=== PATIENT | male | born 1955 | race Caucasian/White ===

== ENCOUNTER 2017-09-09 18:51 | Inpatient (IN) | payer MEDICARE ==
[2017-09-09] MEDS ORDERED: Acetaminophen 325 MG TAB PO PRN (20:35)
[2017-09-09] MEDS ORDERED: Ondansetron ODT 4 MG TAB PO PRN (20:35)
[2017-09-09] MEDS ORDERED: Bisacodyl 5 MG TAB PO PRN (20:35)
[2017-09-09] MEDS ORDERED: Sodium Chloride 0.9% 1,000 ML IV SCH (20:45)
[2017-09-09 21:09] LABS: Troponin I Less than 0.010 ng/mL (< 0.028)
[2017-09-09 22:39] VITALS: BMI 27.9
[2017-09-09 22:41] LABS: Lactic Acid 2.2 mmol/L (0.5-2.2)
[2017-09-09] MEDS ORDERED: HYDROcodone/Acetaminophen 5/325 mg Tablet PO SCH (23:15)
[2017-09-10] MEDS: Sodium Chloride 0.9% 1,000 ML IV SCH ×4 (00:32→17:36)
[2017-09-10] MEDS: Famotidine 20 MG TAB PO SCH ×3 (00:32→20:22)
[2017-09-10] MEDS: cefTRIAXone\\ROCEPHIN 1 GM in Sodium Chloride 0.9% 100 ML IVPB SCH ×2 (00:33→22:20)
[2017-09-10] MEDS: Azithromycin 500 MG in Sodium Chloride 0.9% 250 ML 250 ML IVPB SCH ×2 (01:16→23:33)
[2017-09-10 04:08] LABS: Anion Gap 10 mmol/L (10-20); BUN (Urea Nitrogen) 11 mg/dL (8.4-25.7); Calc. Creatinine Clearance 115 mL/min (70-130); Carbon Dioxide 27 mmol/L (22-29); Chloride 107 mmol/L (98-107); Estimated GFR-MDRD 88; Glucose 152 mg/dL (70-105); Potassium 3.6 mmol/L (3.5-5.1); Sodium 140 mmol/L (136-145)
[2017-09-10 04:11] LABS: Troponin I Less than 0.010 ng/mL (< 0.028)
[2017-09-10 04:31] LABS: Band 41 % (5-11); Hemoglobin 11.8 g/dL (14.0-18.0); Lymphocytes 19 % (21-51); MDiff Complete? YES; Mean Corpuscular HGB CONC 34.7 g/dL (32.0-36.0); Mean Corpuscular Hemoglobin 33.6 pg (27.0-31.0); Mean Platelet Volume 8.1 fL (7.4-10.4); Neutrophil 40 % (42-75); PLT Morphology Comment Appears Decreased; Platelet Count 83 thou/uL (130-400); RBC Distribution Width 11.9 % (11.5-14.5); Red Blood Cell (RBC) Count 3.52 mill/uL (4.70-6.10); Reflex for Review?? NO; White Blood Cell (WBC) Count 7.6 thou/uL (4.8-10.8)
[2017-09-10] MEDS: HYDROcodone/Acetaminophen 5/325 mg Tablet PO PRN ×4 (05:01→22:19)
[2017-09-10] MEDS ORDERED: Enoxaparin Sodium 40 MG/0.4 ML SYRINGE SC SCH (09:00)
[2017-09-10] MEDS ORDERED: hydrOXYzine 25 MG TAB PO PRN (09:43)
[2017-09-10] MEDS ORDERED: Carvedilol 3.125 MG TAB PO SCH (10:00)
[2017-09-10 10:49] LABS: INR-International Normal Ratio 1.3
[2017-09-10 10:50] LABS: PTT 36.2 SEC (22.9-36.1)
--- NOTE | 2017-09-10 11:03 | ULT ---
BILATERAL LOWER EXTREMITY VENOUS DOPPLER: Date: 09/10/17 PROVIDED CLINICAL HISTORY: Elevated D-Dimer. FINDINGS: Rangel scale and color Doppler sonography with spectral analysis was performed of the bilateral common femoral, femoral, popliteal, posterior tibial, greater saphenous, and profunda femoral veins, demons trating a normal sonographic appearance to each. IMPRESSION: No sonographic evidence for lower extremity deep venous thrombosis. POS: [facility]
[2017-09-10 11:53] LABS: Legionella Urinary Ag Negative (Negative)
--- NOTE | 2017-09-10 12:12 | CON ---
DATE OF CONSULTATION: 09/10/2017 This consultation encompasses 70 minutes time. Of that time, greater than 50% was spent with the pat ient and/or on the patient's unit in the hospital. CONSULTING PHYSICIAN: Dr. Smith from the [facility]. HISTORY OF PRESENT ILLNESS: The patient is a 61-year-old male who presented to the hospital yesterda y with a 3-day history of fever, shortness of breath, and cough. He underwent a chest x-ray followed by a CT scan, which showed diffuse bilateral nodular infiltrates, which almost have a cystic charact eristic. The patient tells me that he has a history of 2 previous pneumonias, the last being in 2012 when he was hospitalized in [place]. Apparently, he was mechanically ventilated at that time and was so bad that his family terminally extubated him, but he ended up surviving. The patient denies any recent exposure other than cleaning up the garage with his son. He has no exposure to animals. He h as no previous history of rheumatologic disease. He does smoke about a pack per day and smoked heavi ly in the past. He also smokes marijuana. PAST MEDICAL HISTORY: 1. Previous pneumonia. 2. Coronary artery disease. 3. Hypertension. 4. Hyperlipidemia. 5. Chronic back pain. PAST SURGICAL HISTORY: Left knee replacement, multiple back surgeries and a coronary stent. FAMILY MEDICAL HISTORY: Remarkable for melanoma and mother had COPD. SOCIAL HISTORY: A 3-4 pack a day smoker for 48 years, currently down to about 1 pack per day, drinks alcohol every few weeks after a 12 pack at that time, uses marijuana 3-4 times a week. He is divorc ed, lives with his [id number] and 6 kids. 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 ALLERGIES: SULFA. MEDICATIONS PRIOR TO ADMISSION: Restoril, Zoloft, Lyrica, omeprazole, lisinopril, hydrocodone/acetam inophen, aspirin is also question whether he was on clindamycin at home. REVIEW OF SYSTEMS: He has had intermittent fever, chills, no nausea, no vomiting or chest pain, no h ematemesis, no melena, no hematochezia, no hematuria, no dysuria. PHYSICAL EXAMINATION: VITAL SIGNS: Temperature 97.9, pulse 70, respirations 14, O2 saturation 97% on 3 liters, blood press ure 112/55. GENERAL: He is awake and alert and in no distress. HEENT: Pupils react. Sclerae icteric. Oropharynx clear. NECK: Shows no adenopathy, JVD, or bruits. LUNGS: He has some inspiratory crackles best heard posteriorly, but nothing I can hear anteriorly. CARDIOVASCULAR: S1, S2 regular. There is no audible murmur. ABDOMEN: Soft, nontender, nondistended. No hepatosplenomegaly. EXTREMITIES: No clubbing, cyanosis, or edema. LABORATORY DATA: Sodium 140, potassium 3.6, chloride 107, CO2 27, BUN 11, creatinine 0.8, glucose 15 2. Lactate initially was 3, repeat 2.2. White blood cell count 7.6, hematocrit 34.1, platelet count 83, he has got 40% neutrophils, 41% bands. I reviewed his CT personally. He has small nodular infiltrates scattered throughout both lung herrera , ground glass appearance, some cystic appearance to the areas. ASSESSMENT: 1. Bilateral atypical pneumonia. The nodular nature in the infiltrate would make one think of funga l pneumonia, viral pneumonia, or perhaps an atypical pneumonia such as chlamydia or mycoplasma. Endo carditis would also have to be in the differential diagnosis. Noninfectious causes would include a W egener's granulomatosis or rheumatoid disease. RECOMMENDATIONS: 1. I will add vancomycin to current antibiotic regimen. Check ANCA levels, rheumatoid factor, and H IV. 2. Follow up on echocardiogram result. 3. If the patient does not get better with current therapy, then consider bronchoscopy versus video- assisted thorascopic biopsy.
[2017-09-10 13:11] LABS: HIV (1/2) Antibody/Antigen Non-Reactive (NonReactive); HIV 1/2 INDEX 0.11 S/CO (<1.00)
--- NOTE | 2017-09-10 14:57 | PDOC.PN ---
- Subjective Encounter Start Date: 09/10/17 Encounter Start Time: 09:30 Feels ok. Still has the cough. Was able to get a sputum sample. - Objective Vital Signs & Weight: Vital Signs (12 hours) Temp Pulse Resp BP Pulse Ox 09/10/17 12:02 98.2 F 69 16 121/56 L 92 L 09/10/17 08:15 97.9 F 70 14 97 09/10/17 08:02 97.9 F 70 14 112/55 L 97 09/10/17 04:03 98.1 F 73 15 101/57 L 98 Weight Weight 198 lb 9.6 oz I&O: 09/09/17 09/10/17 09/11/17 06:59 06:59 06:59 Intake Total 1829 Output Total 1000 Balance 829 Result Diagrams: 09/10/17 02:49 09/10/17 02:49 Phys Exam - Physical Examination Constitutional: NAD HEENT: oral pharynx no lesions Neck: no JVD, supple Respiratory: no wheezing Scattered rales bilaterally. Cardiovascular: RRR, no significant murmur, no rub Gastrointestinal: soft, non-tender, no distention, positive bowel sounds Musculoskeletal: no edema Neurological: non-focal Psychiatric: normal affect, A&O x 3 Skin: normal turgor Dx/Plan (1) Pneumonia Code(s): J18.9 - PNEUMONIA, UNSPECIFIED ORGANISM Status: Acute Comment: Very atypical, bilateral pattern. Consult Pulmonology, ID. Sputum Cx pending. Blood Cx pending. Continue with Abraham Olivas. Pulmonology adding Vanc for possible staph. (2) LARSON (nonalcoholic steatohepatitis) Code(s): K75.81 - NONALCOHOLIC STEATOHEPATITIS (LARSON) Status: Acute Comment : Has mild elevation of LFT's. Patient denies significant EtOH use other that a six pack every couple of weeks. (3) Thrombocytopenia Code(s): D69.6 - THROMBOCYTOPENIA, UNSPECIFIED Status: Acute Comment: Unclear etiology. Has Clindamycin on home med list. Could cause this. Held now. (4) CAD (coronary artery disease) Code(s): I25.10 - ATHSCL HEART DISEASE OF [place] CORONARY ARTERY W/O ANG PCTRS Status: Chronic Comment: Stable. Continue home meds. (5) Hypertension Code(s): I10 - ESSENTIAL (PRIMARY) HYPERTENSION Status: Chronic Comment: Stable. Continue home meds. Coreg (6) Hyperlipidemia Code(s): E78.5 - HYPERLIPIDEMIA, UNSPECIFIED Status: Chronic Comment: Continue home atorvastatin. (7) Chronic back pain Code(s): M54.9 - DORSALGIA, UNSPECIFIED; G89.29 - OTHER CHRONIC PAIN Status: Chronic Comment: Continue home meds. - Plan * .
[2017-09-10] MEDS: Acetaminophen/Codeine 30-300mg Tablet PO PRN (18:06)
[2017-09-10] MEDS: Atorvastatin Calcium 20 MG TAB PO SCH (20:22)
[2017-09-10] MEDS: Carvedilol 3.125 MG TAB PO SCH (20:23)
[2017-09-10] MEDS: traZODone HCl 150 MG TAB PO SCH (20:23)
[2017-09-10] MEDS: Bupropion 150 MG SR TAB PO SCH (20:23)
[2017-09-10] MEDS: Pregabalin 75 MG CAP PO SCH (20:23)
[2017-09-10] MEDS: Vancomycin HCl 1 GM in Premix Bag 1 BAG IVPB SCH (20:24)
[2017-09-10] MEDS: tiZANidine HCl 4 MG TAB PO PRN (22:19)
[2017-09-11] MEDS: HYDROcodone/Acetaminophen 5/325 mg Tablet PO PRN ×2 (04:45→08:38)
[2017-09-11] MEDS: Sodium Chloride 0.9% 1,000 ML IV SCH (04:46)
[2017-09-11] MEDS: Benzonatate 100 MG CAP PO PRN ×2 (05:06→21:33)
[2017-09-11 05:09] LABS: Anion Gap 12 mmol/L (10-20); BUN (Urea Nitrogen) 7 mg/dL (8.4-25.7); Calc. Creatinine Clearance 135 mL/min (70-130); Calcium 8.2 mg/dL (7.8-10.44); Carbon Dioxide 23 mmol/L (22-29); Chloride 109 mmol/L (98-107); Estimated GFR-MDRD Greater than 90; Glucose 76 mg/dL (70-105); Sodium 140 mmol/L (136-145)
[2017-09-11 05:12] LABS: #Basophils 0.1 thou/uL (0.0-0.2); #Eosinphils 0.1 thou/uL (0.0-0.7); #Lymphocytes 1.8 thou/uL (1.20-3.40); #Monocytes 0.5 thou/uL (0.11-0.59); #Neutrophils 9.1 thou/uL (1.40-6.50); %Basophils 0.5 % (0.0-1.0); %Eosinophils 0.6 % (0.0-10.0); %Lymphocytes 15.7 % (21.0-51.0); %Monocytes 3.9 % (0.0-10.0); %Neutrophils 79.3 % (42.0-75.0); Hemoglobin 13.5 g/dL (14.0-18.0); Mean Corpuscular HGB CONC 33.9 g/dL (32.0-36.0); Mean Corpuscular Hemoglobin 33.1 pg (27.0-31.0); Mean Corpuscular Volume 97.5 fL (78.0-98.0); Platelet Count 98 thou/uL (130-400); RBC Distribution Width 11.9 % (11.5-14.5); Red Blood Cell (RBC) Count 4.07 mill/uL (4.70-6.10); White Blood Cell (WBC) Count 11.5 thou/uL (4.8-10.8)
[2017-09-11] MEDS: Famotidine 20 MG TAB PO SCH ×2 (08:34→20:36)
[2017-09-11] MEDS: Bupropion 150 MG SR TAB PO SCH ×2 (08:34→20:35)
[2017-09-11] MEDS: Carvedilol 3.125 MG TAB PO SCH ×2 (08:34→20:36)
[2017-09-11] MEDS: traZODone HCl 150 MG TAB PO SCH ×2 (08:35→20:35)
[2017-09-11] MEDS: Pregabalin 75 MG CAP PO SCH ×2 (08:35→20:35)
[2017-09-11] MEDS: Vancomycin HCl 1 GM in Premix Bag 1 BAG IVPB SCH (08:36)
--- NOTE | 2017-09-11 11:07 | PDOC.PN ---
- Subjective Encounter Start Date: 09/11/17 Encounter Start Time: 11:06 Feels better. Feels like he can breath better. - Objective Vital Signs & Weight: Vital Signs (12 hours) Temp Pulse Resp BP Pulse Ox 09/11/17 08:35 98.4 F 74 18 93 L 09/11/17 08:00 98.4 F 74 18 131/74 93 L 09/11/17 05:59 77 20 94 L 09/11/17 05:27 79 18 98 09/11/17 04:38 24 H 94 L 09/11/17 03:55 98.1 F 90 24 H 135/79 88 L 09/10/17 23:55 20 93 L 09/10/17 23:34 98.5 F Weight Weight 198 lb 9.6 oz I&O: 09/10/17 09/11/17 09/12/17 06:59 06:59 06:59 Intake Total 1829 3727 Output Total 1000 2275 Balance 829 1452 Result Diagrams: 09/11/17 04:35 09/11/17 04:35 Phys Exam - Physical Examination Constitutional: NAD Scattered rales and wheezes. More rales at right base - clear with coug Cardiovascular: RRR, no significant murmur Gastrointestinal: soft, non-tender, no distention, positive bowel sounds Musculoskeletal: no edema Skin: normal turgor Dx/Plan (1) Pneumonia Code(s): J18.9 - PNEUMONIA, UNSPECIFIED ORGANISM Status: Acute Comment: Very atypical, bilateral pattern. Consult Pulmonology, ID. Sputum Cx without specific pathogen found. Blood Cx negative. Continue with Abraham Olivas Vanc. (2) LARSON (nonalcoholic steatohepatitis) Code(s): K75.81 - NONALCOHOLIC STEATOHEPATITIS (LARSON) Status: Acute Comment : Has mild elevation of LFT's. Patient denies significant EtOH use other that a six pack every couple of weeks. (3) Thrombocytopenia Code(s): D69.6 - THROMBOCYTOPENIA, UNSPECIFIED Status: Acute Comment: Unclear etiology. Has Clindamycin on home med list. Could cause this. Held now. Slightly better. (4) CAD (coronary artery disease) Code(s): I25.10 - ATHSCL HEART DISEASE OF [place] CORONARY ARTERY W/O ANG PCTRS Status: Chronic Comment: Stable. Continue home meds. (5) Hypertension Code(s): I10 - ESSENTIAL (PRIMARY) HYPERTENSION Status: Chronic Comment: Stable. Continue home meds. Coreg (6) Hyperlipidemia Code(s): E78.5 - HYPERLIPIDEMIA, UNSPECIFIED Status: Chronic Comment: Continue home atorvastatin. (7) Chronic back pain Code(s): M54.9 - DORSALGIA, UNSPECIFIED; G89.29 - OTHER CHRONIC PAIN Status: Chronic Comment: Continue home meds. - Plan * Above.
--- NOTE | 2017-09-11 11:16 | PRG ---
DATE OF SERVICE: 09/11/2017 SUBJECTIVE: The patient feels better today. Does complaining of headache that he says he has had si nce he got nitroglycerin in the emergency room the overnight. PHYSICAL EXAMINATION: VITAL SIGNS: Temperature 98.4 with no fever, pulse 74, respirations 18, O2 sat 93% on 3 liters, and blood pressure 131/74. HEENT: Unremarkable. NECK: No JVD. LUNGS: He has inspiratory crackles bilaterally with some wheezes heard anteriorly. CARDIOVASCULAR: S1 and S2, regular. ABDOMEN: Soft. EXTREMITIES: No edema. LABORATORY DATA: White blood cell count 11.5, hematocrit 39.7, platelet count 98. Sodium 140, potas sium 4, chloride 109, CO2 of 23, BUN 7, creatinine 0.7, glucose 76. His HIV test was negative. Urin josé miguel antigen for legionella was negative. ASSESSMENT: 1. Atypical appearing pneumonia. 2. Likely underlying chronic obstructive pulmonary disease with exacerbation. PLAN: 1. We are waiting the results of an echocardiogram that was obtained yesterday. Specifically, I wan t to rule out endocarditis. 2. Awaiting results of the ANCA and rheumatoid arthritis panel. 3. Continuing the present IV antibiotics. 4. I would like to add scheduled breathing treatments and low dose steroids for the wheezing.
[2017-09-11] MEDS ORDERED: HYDROcodone/Acetaminophen 10/325 mg Tablet PO PRN (14:48)
[2017-09-11] MEDS: HYDROcodone/Acetaminophen 10/325 mg Tablet PO PRN ×2 (15:16→21:33)
[2017-09-11 17:25] LABS: Strep pneumo Urine Ag NEGATIVE (NEGATIVE)
--- NOTE | 2017-09-11 17:35 | CON ---
DATE OF CONSULTATION: 09/11/2017 REASON FOR CONSULTATION: Pneumonia. HISTORY OF PRESENT ILLNESS: A 61-year-old patient who has a history of chronic smoking and a prior episode of pneumonia treated at [facility] in 2012 who developed progressively worsening cough, dyspnea associated with some chest pain , which was respiratory related. Initial findings included a BP 117/63, pulse 86 , respirations 23, O2 sat 93% room air. He was oriented x3. Heent was normal, neck was supple with described clear lung sounds and abdomen examination was nontender. Heart exam not remarkable. Initial findings in the ancillary results including a white cell count 7.6, hemoglobin 11.8, MCV 97, platelets 83,000 with 41% bands. INR 1.3. Initial chemistry with a potassium 3.6, creatinine 0.88, lactic acid 2.0. LDH 255. Troponin normal. HIV serology nonreactive. Urinary legionella Haemophilus antigen negative thus far. We have sputum culture with moderate WBCs, few gram positive cocci in clusters and positive rods. Currently, Mr. Mcginnis is feeling better, lying supine in bed, oriented, does appear in distress. No headaches. No sore throat, odynophagia or dysphagia. Some toothache, which has been chronic. Does not have money to go to the dentist reportedly. No back pain. The cough is less, clear sputum production. No abdominal pain, diarrhea, or genitourinary symptoms. No joint symptoms. No neurological symptoms. MEDICAL HISTORY: Chronic smoking, prior pneumonia, diverticulitis, chronic back pain, hypertension. SURGICAL HISTORY: Appendectomy, carpal tunnel surgery, colon resection and colostomy with takedown, shoulder surgery, bilateral knee replacements. SOCIAL HISTORY: Lives in [place] with relatives, still smoking, drinks weekly. ALLERGIES: SULFA DRUGS with rash. MEDICATIONS: Coreg, hydroxyzine, Lyrica, Prilosec, pravastatin, tizanidine. MEDICINES HERE IN THE HOSPITAL: Tylenol, [place], DuoNeb, Lipitor, azithromycin, Dulcolax, ceftriaxone, ondansetron, pregabalin, vancomycin. PHYSICAL EXAMINATION: VITAL SIGNS: T-max 100.4, blood pressure 120/70, pulse 65, respirations 18, O2 sat 95%. SKIN: No areas of skin breakdown, no lymphadenopathy. Peripheral IV access. No Arce catheter. HEENT: Ocular movements conjugate. Oral cavity with quite a few missing teeth. Remainder ones with quite a bit of decay and gum disease. NECK: Supple. No jugular venous distention. LUNGS: With expiratory wheezing left side and a few crackles in the right base. CARDIOVASCULAR: S1, S2, regular rate. No S3 or S4. ABDOMEN: Soft, not distended or tender. No ascites. No bladder distention. : No genital abnormalities. EXTREMITIES: No joint inflammatory activity. Pulses 1+ in dorsalis pedis. NEUROLOGIC: Plantar responses are flexure, moves extremities equally. Cognitive function appears to be intact. Imaging studies include a chest CT angio from the with diffuse ground- glass nodular infiltrates, panlobular, worse at the bases. ASSESSMENT: 1. Chronic smoking. 2. New onset of cough of acute, subacute onset with multilobar pneumonitis. DISCUSSION: Differential diagnosis include the usual community-acquired pathogens including strep pneumo, legionnaires, Legionella pneumophila other atypical intracellular pathogens. Mycobacterium tuberculosis or atypical mycobacterial pathogens less likely. Fungal pathogens less likely in view of the initial clinical response to treatment. Hypersensitivity pneumonitis with cryptogenic organizing pneumonia not ruled out, but to be considered if there is recrudescence in the near future. Malignancy including bronchoalveolar carcinoma less likely. Pneumocystis is unlikely. Continue current regimen. Submit strep pneumo antigen in urine and respiratory virus PCR panel. Further improvement is noticed and transition to oral antimicrobial therapy for discharge planning. If there is recrudescence, then patient will need a bronchoscopy for sampling. MTDD
[2017-09-11] MEDS: Atorvastatin Calcium 20 MG TAB PO SCH (20:35)
[2017-09-11] MEDS: cefTRIAXone\\ROCEPHIN 1 GM in Sodium Chloride 0.9% 100 ML IVPB SCH (21:33)
[2017-09-11] MEDS: Azithromycin 500 MG in Sodium Chloride 0.9% 250 ML 250 ML IVPB SCH (22:17)
[2017-09-12] MEDS: HYDROcodone/Acetaminophen 10/325 mg Tablet PO PRN ×4 (03:20→21:10)
[2017-09-12] MEDS: Pregabalin 75 MG CAP PO SCH ×2 (08:33→22:29)
[2017-09-12] MEDS: traZODone HCl 150 MG TAB PO SCH ×2 (08:34→23:30)
[2017-09-12] MEDS: Famotidine 20 MG TAB PO SCH ×2 (08:34→22:28)
[2017-09-12] MEDS: Carvedilol 3.125 MG TAB PO SCH (08:34)
[2017-09-12] MEDS: Bupropion 150 MG SR TAB PO SCH ×2 (08:34→23:30)
--- NOTE | 2017-09-12 08:39 | RAD ---
FRONTAL RADIOGRAPH CHEST: Date: 09/12/17 COMPARISON: 09/09/17. HISTORY: Pneumonia. FINDINGS: There are scattered subtle areas of interstitial and alveolar opacity within both lungs, most promine nt in the right upper lobe, the mid left lung zone, and the medial aspect of the left lung base. When compared to the 09/09/17 examination, the opacities within the right upper lobe have worsened. There is no pneumothorax or large volume pleural effusion. IMPRESSION: Multifocal air space disease suggests multifocal infectious pneumonitis, for which follow-up imaging following treatment to document resolution is advised. POS: [facility]
--- NOTE | 2017-09-12 10:58 | PRG ---
DATE OF SERVICE: 09/12/2017 The patient states that he feels better. No acute complaints. PHYSICAL EXAMINATION: VITAL SIGNS: Temperature 96.6, pulse 62, respirations 18, O2 sat 94%, blood pressure 150/73. HEENT: Unremarkable. NECK: No JVD. CHEST: A few scattered crackles. CARDIAC: S1 and S2 regular. ABDOMEN: Soft. EXTREMITIES: No edema. Chest x-ray demonstrates no acute changes from his previous x-ray. His micro cultures are negative t o this point. ASSESSMENT: 1. Multifocal bilateral pneumonia 2. Acute systolic dysfunction with ejection fraction 45-50% without evidence of vegetation on the va lves. RECOMMENDATIONS: The patient is doing better with current antibiotic therapy. I would continue the current treatment course and await the results of the ANCA testing. If he should get worse then he w ill need bronchoscopy, but the best yield would be to have him off antibiotics a couple of days befor e doing a bronchoscopy. My partners will be covering as I will be out of town for several days.
[2017-09-12 12:10] LABS: CCP IgG Antibody 1.4 EliAU/mL (<7 Negative); EliA RAS New Method **** NEW METHOD ****; Rheumatoid Factor IgM Antibody Less than 0.5 IU/mL
--- NOTE | 2017-09-12 13:21 | PDOC.PN ---
- Subjective Encounter Start Date: 09/12/17 Encounter Start Time: 10:45 Subjective: feels better, no sob -: is amb in room - Objective MAR Reviewed: Yes Vital Signs & Weight: Vital Signs (12 hours) Temp Pulse Resp BP Pulse Ox 09/12/17 12:00 96.3 F L 62 20 155/78 H 96 09/12/17 11:05 62 16 95 09/12/17 08:00 96.6 F L 63 18 158/73 H 94 L 09/12/17 07:05 93 L 09/12/17 07:03 60 16 93 L 09/12/17 03:18 97.8 F 67 20 134/78 95 Weight Weight 198 lb 1.6 oz I&O: 09/11/17 09/12/17 09/13/17 06:59 06:59 06:59 Intake Total 3727 2558 350 Output Total 2275 3350 Balance 1452 -792 350 Result Diagrams: 09/11/17 04:35 09/11/17 04:35 Phys Exam - Physical Examination HEENT: PERRLA, moist MMs Neck: no JVD, supple Respiratory: no wheezing, no rales rhonchi+ Cardiovascular: RRR, no significant murmur Gastrointestinal: soft, non-tender, positive bowel sounds Musculoskeletal: no edema, pulses present Neurological: non-focal, moves all 4 limbs Psychiatric: normal affect, A&O x 3 Dx/Plan (1) COPD exacerbation Code(s): J44.1 - CHRONIC OBSTRUCTIVE PULMONARY DISEASE W (ACUTE) EXACERBATION Status: Acute (2) Pneumonia Code(s): J18.9 - PNEUMONIA, UNSPECIFIED ORGANISM Status: Acute Qualifiers: Laterality: bilateral (3) LARSON (nonalcoholic steatohepatitis) Code(s): K75.81 - NONALCOHOLIC STEATOHEPATITIS (LARSON) Status: Acute (4) CAD (coronary artery disease) Code(s): I25.10 - ATHSCL HEART DISEASE OF [place] CORONARY ARTERY W/O ANG PCTRS Status: Chronic Qualifiers: Coronary Disease-Associated Artery/Lesion type: [place] artery [place] vs. transplanted heart: [place] heart Comment: Stable. Continue home meds. (5) Chronic back pain Code(s): M54.9 - DORSALGIA, UNSPECIFIED; G89.29 - OTHER CHRONIC PAIN Status: Chronic Comment: Continue home meds. (6) Hyperlipidemia Code(s): E78.5 - HYPERLIPIDEMIA, UNSPECIFIED Status: Chronic Qualifiers: Hyperlipidemia type: unspecified Qualified Code(s): E78.5 - Hyperlipidemia , unspecified Comment: Continue home atorvastatin. (7) Hypertension Code(s): I10 - ESSENTIAL (PRIMARY) HYPERTENSION Status: Chronic Qualifiers: Hypertension type: essential hypertension Qualified Code(s): I10 - Essential (primary) hypertension - Plan is on zithromax and ceftriaxone -: iv steroids, viral pcr was +ve for rhinovirus -: dc coreg, was bradycardic overnight per staff -: add norvasc -: nebs, tx to med floor * . pt is on multiple pschotropic/pain meds: trazadone 150mg bid, tizanidine, lyrica 300 bid, norco, welbutrin 150 bid. PCP needs to titrate/dc some of his meds in view of current hosp and undelying copd. Review of Systems - Medications/Allergies Allergies/Adverse Reactions: Allergies Allergy/AdvReac Type Severity Reaction Status Date / Time Sulfa (Sulfonamide Allergy Verified 11/21/13 19:18 Antibiotics) Medications: Current Medications Acetaminophen (Tylenol) 650 mg PO Q4H PRN PRN Reason: Headache/Fever or Pain Acetaminophen/Codeine Phosphate (Tylenol #3) 1 tab PO Q4H PRN PRN Reason: Mild Pain (1-3) Last Admin: 09/10/17 18:06 Dose: 1 tab Hydrocodone Bitart/Acetaminophen ([place] 10/325) 1 tab PO Q4H PRN PRN Reason: Moderate Pain (4-6) Hydrocodone Bitart/Acetaminophen ([place] 10/325) 2 tab PO Q4H PRN PRN Reason: Moderate to Severe Pain (6-10) Last Admin: 09/12/17 08:34 Dose: 2 tab Albuterol/Ipratropium (Duoneb) 3 ml NEB [id number] RJ Last Admin: 09/12/17 11:05 Dose: 3 ml Atorvastatin Calcium (Lipitor) 20 mg PO HS RJ Last Admin: 09/11/17 20:35 Dose: 20 mg Benzonatate (Tessalon) 100 mg PO TIDPRN PRN PRN Reason: Cough Last Admin: 09/11/17 21:33 Dose: 100 mg Bisacodyl (Dulcolax) 10 mg PO DAILYPRN PRN PRN Reason: Constipation Bupropion HCl (Wellbutrin Sr) 150 mg PO BID [facility] Last Admin: 09/12/17 08:34 Dose: 150 mg Carvedilol (Coreg) 3.125 mg PO BID [facility] Last Admin: 09/12/17 08:34 Dose: 3.125 mg Famotidine (Pepcid) 20 mg PO BID [facility] Last Admin: 09/12/17 08:34 Dose: 20 mg Azithromycin 500 mg/ Sodium (Chloride) 250 mls @ 250 mls/hr IVPB Q24HR [facility] Last Admin: 09/11/17 22:17 Dose: 250 mls Ceftriaxone Sodium 1 gm/ (Sodium Chloride) 100 mls @ 200 mls/hr IVPB Q24HR [facility] Last Admin: 09/11/17 21:33 Dose: 100 mls Methylprednisolone Sodium Succinate (Solu-Medrol) 20 mg IVP Q6HR [facility] Last Admin: 09/12/17 12:28 Dose: 20 mg Ondansetron HCl (Zofran Odt) 4 mg PO Q6H PRN PRN Reason: Nausea/Vomiting Pantoprazole Sodium (Protonix) 40 mg PO DAILY [facility] Last Admin: 09/12/17 08:34 Dose: 40 mg Pregabalin (Lyrica) 300 mg PO BID [facility] Last Admin: 09/12/17 08:33 Dose: 300 mg Sodium Chloride (Flush - Normal Saline) 10 ml IVF Q12HR [facility] Last Admin: 09/12/17 08:36 Dose: 10 ml Sodium Chloride (Flush - Normal Saline) 10 ml IVF PRN PRN PRN Reason: Saline Flush Last Admin: 09/12/17 06:22 Dose: 10 ml Tizanidine HCl (Zanaflex) 4 mg PO Q8H PRN PRN Reason: Nausea/Vomiting Last Admin: 09/10/17 22:19 Dose: 4 mg Trazodone HCl (Desyrel) 150 mg PO BID [facility] Last Admin: 09/12/17 08:34 Dose: 150 mg
[2017-09-12] MEDS: Atorvastatin Calcium 20 MG TAB PO SCH (22:29)
[2017-09-12] MEDS: cefTRIAXone\\ROCEPHIN 1 GM in Sodium Chloride 0.9% 100 ML IVPB SCH (22:31)
[2017-09-12] MEDS: Azithromycin 500 MG in Sodium Chloride 0.9% 250 ML 250 ML IVPB SCH (23:05)
[2017-09-12] MEDS: Benzonatate 100 MG CAP PO PRN (23:31)
[2017-09-13] MEDS ORDERED: Sterile Water 10 ML ONE (07:40)
[2017-09-13] MEDS: Famotidine 20 MG TAB PO SCH ×2 (09:39→20:14)
[2017-09-13] MEDS: traZODone HCl 150 MG TAB PO SCH ×2 (09:40→20:15)
[2017-09-13] MEDS: Bupropion 150 MG SR TAB PO SCH ×2 (09:40→20:14)
[2017-09-13] MEDS: Pregabalin 75 MG CAP PO SCH ×2 (09:40→20:14)
[2017-09-13] MEDS: HYDROcodone/Acetaminophen 10/325 mg Tablet PO PRN ×3 (09:48→20:19)
--- NOTE | 2017-09-13 10:13 | PRG ---
DATE OF SERVICE: 09/13/2017 This morning he is much better, less short of breath, less coughing, still has a left-sided infiltrat e, but better. PHYSICAL EXAMINATION: VITAL SIGNS: Still wheezing. Sats are 90% on room air, respiration 16, temperature 98, blood pressu re 130/74. CHEST: Chest revealed diffuse wheezing without rhonchi and crackles. CARDIAC: Normal S1, S2. No gallops. ABDOMEN: Soft mass. IMPRESSION: 1. Multi airspace disease. 2. Bronchospasm. 3. Tobacco abuse. PLAN: Continue antibiotics, neb treatments, steroids. Ambulation. We will follow.
--- NOTE | 2017-09-13 12:08 | PDOC.PN ---
- Subjective Encounter Start Date: 09/13/17 Encounter Start Time: 09:00 Subjective: has cough with expectoration -: is amb in room - Objective MAR Reviewed: Yes Vital Signs & Weight: Vital Signs (12 hours) Temp Pulse Resp BP Pulse Ox 09/13/17 11:55 97.9 F 74 18 152/77 H 91 L 09/13/17 11:06 81 20 98 09/13/17 08:00 98.1 F 72 16 138/74 96 09/13/17 06:40 94 L 09/13/17 06:37 90 20 94 L 09/13/17 03:44 97.5 F L 86 16 143/81 H 95 Weight Weight 198 lb 1.6 oz I&O: 09/12/17 09/13/17 09/14/17 06:59 06:59 06:59 Intake Total 2558 1750 Output Total 3350 Balance -792 1750 Result Diagrams: 09/11/17 04:35 09/11/17 04:35 Phys Exam - Physical Examination HEENT: PERRLA, moist MMs Neck: no JVD, supple Respiratory: no wheezing, no rales rhonchi+ Cardiovascular: RRR, no significant murmur Gastrointestinal: soft, non-tender, positive bowel sounds Musculoskeletal: no edema, pulses present Neurological: non-focal, moves all 4 limbs Psychiatric: A&O x 3 Dx/Plan (1) COPD exacerbation Code(s): J44.1 - CHRONIC OBSTRUCTIVE PULMONARY DISEASE W (ACUTE) EXACERBATION Status: Acute (2) Pneumonia Code(s): J18.9 - PNEUMONIA, UNSPECIFIED ORGANISM Status: Acute Qualifiers: Laterality: bilateral (3) LARSON (nonalcoholic steatohepatitis) Code(s): K75.81 - NONALCOHOLIC STEATOHEPATITIS (LARSON) Status: Acute (4) CAD (coronary artery disease) Code(s): I25.10 - ATHSCL HEART DISEASE OF [place] CORONARY ARTERY W/O ANG PCTRS Status: Chronic Qualifiers: Coronary Disease-Associated Artery/Lesion type: [place] artery [place] vs. transplanted heart: [place] heart Comment: Stable. Continue home meds. (5) Chronic back pain Code(s): M54.9 - DORSALGIA, UNSPECIFIED; G89.29 - OTHER CHRONIC PAIN Status: Chronic Comment: Continue home meds. (6) Hyperlipidemia Code(s): E78.5 - HYPERLIPIDEMIA, UNSPECIFIED Status: Chronic Qualifiers: Hyperlipidemia type: unspecified Qualified Code(s): E78.5 - Hyperlipidemia , unspecified Comment: Continue home atorvastatin. (7) Hypertension Code(s): I10 - ESSENTIAL (PRIMARY) HYPERTENSION Status: Chronic Qualifiers: Hypertension type: essential hypertension Qualified Code(s): I10 - Essential (primary) hypertension - Plan change oxygen to humidified -: is on doxy and ceftriaxone -: solumedrol, nebs -: to ambulate in hallway as tolerated -: decrease dose of trazadone and lyrica until his lung symptoms get better * . Review of Systems - Medications/Allergies Allergies/Adverse Reactions: Allergies Allergy/AdvReac Type Severity Reaction Status Date / Time Sulfa (Sulfonamide Allergy Verified 11/21/13 19:18 Antibiotics) Medications: Current Medications Acetaminophen (Tylenol) 650 mg PO Q4H PRN PRN Reason: Headache/Fever or Pain Acetaminophen/Codeine Phosphate (Tylenol #3) 1 tab PO Q4H PRN PRN Reason: Mild Pain (1-3) Last Admin: 09/10/17 18:06 Dose: 1 tab Hydrocodone Bitart/Acetaminophen ([place] 10/325) 1 tab PO Q4H PRN PRN Reason: Moderate Pain (4-6) Hydrocodone Bitart/Acetaminophen ([place] 10/325) 2 tab PO Q4H PRN PRN Reason: Moderate to Severe Pain (6-10) Last Admin: 09/13/17 09:48 Dose: 2 tab Albuterol/Ipratropium (Duoneb) 3 ml NEB [id number] [facility] Last Admin: 09/13/17 11:06 Dose: 3 ml Atorvastatin Calcium (Lipitor) 20 mg PO HS [facility] Last Admin: 09/12/17 22:29 Dose: 20 mg Benzonatate (Tessalon) 100 mg PO TIDPRN PRN PRN Reason: Cough Last Admin: 09/12/17 23:31 Dose: 100 mg Bisacodyl (Dulcolax) 10 mg PO DAILYPRN PRN PRN Reason: Constipation Bupropion HCl (Wellbutrin Sr) 150 mg PO BID [facility] Last Admin: 09/13/17 09:40 Dose: 150 mg Doxycycline Hyclate (Vibramycin) 100 mg PO BID [facility] Stop: 09/20/17 21:01 Famotidine (Pepcid) 20 mg PO BID [facility] Last Admin: 09/13/17 09:39 Dose: 20 mg Ceftriaxone Sodium 1 gm/ (Sodium Chloride) 100 mls @ 200 mls/hr IVPB Q24HR [facility] Last Admin: 09/12/17 22:31 Dose: 100 mls Methylprednisolone Sodium Succinate (Solu-Medrol) 20 mg IVP Q6HR [facility] Last Admin: 09/13/17 07:45 Dose: 20 mg Mometasone Furoate/Formoterol Fumar (Dulera 200 Mcg/5 Mcg Inhaler) 2 puff INH BID-RT [facility] Ondansetron HCl (Zofran Odt) 4 mg PO Q6H PRN PRN Reason: Nausea/Vomiting Pantoprazole Sodium (Protonix) 40 mg PO DAILY [facility] Last Admin: 09/13/17 09:39 Dose: 40 mg Pregabalin (Lyrica) 75 mg PO BID [facility] Sodium Chloride (Flush - Normal Saline) 10 ml IVF Q12HR [facility] Last Admin: 09/13/17 09:47 Dose: 10 ml Sodium Chloride (Flush - Normal Saline) 10 ml IVF PRN PRN PRN Reason: Saline Flush Last Admin: 09/12/17 23:50 Dose: 10 ml Tizanidine HCl (Zanaflex) 4 mg PO Q8H PRN PRN Reason: Nausea/Vomiting Last Admin: 09/10/17 22:19 Dose: 4 mg Trazodone HCl (Desyrel) 150 mg PO HS [facility]
--- NOTE | 2017-09-13 12:25 | PRG ---
DATE OF SERVICE: 09/12/2017 SUBJECTIVE: Feeling better, less cough, less dyspnea, no chest pain, no abdominal pain, no diarrhea. OBJECTIVE: VITAL SIGNS: Temperature has been normal for the past many days. BP 150/70, pulse 74. GENERAL: Awake, alert and oriented. CARDIOVASCULAR: S1, S2. Regular rate. LUNGS: With improvement in breath sounds with less wheezing, less crackles. ABDOMEN: Soft, not distended. NEUROLOGIC: Nonfocal. LABORATORY DATA: White cell count 11.5, hemoglobin 13, platelets 98,000 and INR 1.3. Sodium 140, cr eatinine 0.74. Strep pneumo and Legionella pneumophila antigen negative. HIV negative. Rheumatoid factor and other rheumatoid arthritis auto antibody tests within normal limits. Respiratory virus PC R positive for rhinovirus. ASSESSMENT AND DISCUSSION: Chronic smoking. New onset of cough of subacute onset with multilobar ar eas of lung infiltrate with wheezing. The differential diagnosis with the usual community acquired p athogens in mind as well as possibility of viral infection including rhinovirus detected. Rhinovirus has been previously associated with clinical presentation that includes pulmonary infiltrates. [place], the possibility of hypersensitivity reaction with pneumonitis is considered as well. The patien t seems to be improving. He has been started on corticosteroids so that we will confound the interpr etation of the clinical response to antimicrobial therapy. If the patient has recrudescence of the p resentation in the future, then we will have to probably have to undergo bronchoscopy for bronchoalve olar lavage and biopsy.
[2017-09-13] MEDS: Mometasone/Formoterol 120 PUFF INHALER INH SCH (19:21)
[2017-09-13] MEDS: Doxycycline 100 MG CAP PO SCH (20:14)
[2017-09-13] MEDS: Atorvastatin Calcium 20 MG TAB PO SCH (20:14)
[2017-09-13] MEDS: tiZANidine HCl 4 MG TAB PO PRN (20:20)
[2017-09-13] MEDS: cefTRIAXone\\ROCEPHIN 1 GM in Sodium Chloride 0.9% 100 ML IVPB SCH (22:21)
[2017-09-14] MEDS: Acetaminophen/Codeine 30-300mg Tablet PO PRN (00:11)
[2017-09-14] MEDS: Benzonatate 100 MG CAP PO PRN ×2 (00:12→08:57)
[2017-09-14] MEDS: HYDROcodone/Acetaminophen 10/325 mg Tablet PO PRN ×5 (06:11→22:53)
[2017-09-14] MEDS: Mometasone/Formoterol 120 PUFF INHALER INH SCH ×2 (06:34→19:23)
[2017-09-14] MEDS: Pregabalin 75 MG CAP PO SCH ×2 (08:57→20:47)
[2017-09-14] MEDS: Doxycycline 100 MG CAP PO SCH ×2 (08:57→20:47)
[2017-09-14] MEDS: Famotidine 20 MG TAB PO SCH ×2 (08:57→20:47)
[2017-09-14] MEDS: Bupropion 150 MG SR TAB PO SCH ×2 (08:57→20:47)
--- NOTE | 2017-09-14 10:01 | PRG ---
DATE OF SERVICE: 09/14/2017 He said he is better, he is still coughing, though sputum is clear. PHYSICAL EXAMINATION: VITAL SIGNS: Temperature is 97, pulse 56, respirations 16, sats are 90% on room air. Blood pressure 181/88. CHEST: No wheezing or crackles. CARDIAC: Normal S1-S2. No gallops. IMPRESSION: Bilateral bronchopneumonia atypical. PLAN: Prednisone and doxycycline are on board. He remains afebrile. He could be discharged home to follow up with Dr. Dumont in about 2 weeks.
[2017-09-14] MEDS: tiZANidine HCl 4 MG TAB PO PRN (10:18)
--- NOTE | 2017-09-14 11:06 | PDOC.PN ---
- Subjective Encounter Start Date: 09/14/17 Encounter Start Time: 10:00 Subjective: breathing better, get exertional sob on min distance - Objective MAR Reviewed: Yes Vital Signs & Weight: Vital Signs (12 hours) Temp Pulse Resp BP Pulse Ox 09/14/17 10:20 58 L 20 98 09/14/17 08:21 97.7 F 56 L 16 181/88 H 95 09/14/17 08:00 97.7 F 70 20 95 09/14/17 06:34 70 20 Weight Weight 198 lb 1.6 oz I&O: 09/13/17 09/14/17 09/15/17 06:59 06:59 06:59 Intake Total 1750 420 Balance 1750 420 Result Diagrams: 09/11/17 04:35 09/11/17 04:35 Phys Exam - Physical Examination HEENT: PERRLA, moist MMs Neck: no JVD, supple Respiratory: no wheezing, no rales rhonchi+ Cardiovascular: RRR, no significant murmur Gastrointestinal: soft, non-tender, positive bowel sounds Musculoskeletal: no edema, pulses present Neurological: non-focal, moves all 4 limbs Psychiatric: A&O x 3 Dx/Plan (1) COPD exacerbation Code(s): J44.1 - CHRONIC OBSTRUCTIVE PULMONARY DISEASE W (ACUTE) EXACERBATION Status: Acute (2) Pneumonia Code(s): J18.9 - PNEUMONIA, UNSPECIFIED ORGANISM Status: Acute Qualifiers: Laterality: bilateral (3) LARSON (nonalcoholic steatohepatitis) Code(s): K75.81 - NONALCOHOLIC STEATOHEPATITIS (LARSON) Status: Acute (4) CAD (coronary artery disease) Code(s): I25.10 - ATHSCL HEART DISEASE OF [place] CORONARY ARTERY W/O ANG PCTRS Status: Chronic Qualifiers: Coronary Disease-Associated Artery/Lesion type: [place] artery [place] vs. transplanted heart: [place] heart Comment: Stable. Continue home meds. (5) Chronic back pain Code(s): M54.9 - DORSALGIA, UNSPECIFIED; G89.29 - OTHER CHRONIC PAIN Status: Chronic Comment: Continue home meds. (6) Hyperlipidemia Code(s): E78.5 - HYPERLIPIDEMIA, UNSPECIFIED Status: Chronic Qualifiers: Hyperlipidemia type: unspecified Qualified Code(s): E78.5 - Hyperlipidemia , unspecified Comment: Continue home atorvastatin. (7) Hypertension Code(s): I10 - ESSENTIAL (PRIMARY) HYPERTENSION Status: Chronic Qualifiers: Hypertension type: essential hypertension Qualified Code(s): I10 - Essential (primary) hypertension (8) Anxiety disorder Code(s): F41.9 - ANXIETY DISORDER, UNSPECIFIED Status: Chronic Qualifiers: Anxiety disorder type: generalized anxiety disorder Qualified Code(s): F41.1 - Generalized anxiety disorder - Plan on doxy and oral prednisone -: nebs, to amb as tolerated -: may dc home if he is comfortable going -: counselled reg medications that suppress resp drive/drowsiness etc * . Review of Systems - Medications/Allergies Allergies/Adverse Reactions: Allergies Allergy/AdvReac Type Severity Reaction Status Date / Time Sulfa (Sulfonamide Allergy Verified 11/21/13 19:18 Antibiotics) Medications: Current Medications Acetaminophen (Tylenol) 650 mg PO Q4H PRN PRN Reason: Headache/Fever or Pain Acetaminophen/Codeine Phosphate (Tylenol #3) 1 tab PO Q4H PRN PRN Reason: Mild Pain (1-3) Last Admin: 09/14/17 00:11 Dose: 1 tab Hydrocodone Bitart/Acetaminophen ([place] 10/325) 1 tab PO Q4H PRN PRN Reason: Moderate Pain (4-6) Hydrocodone Bitart/Acetaminophen ([place] 10/325) 2 tab PO Q4H PRN PRN Reason: Moderate to Severe Pain (6-10) Last Admin: 09/14/17 10:16 Dose: 2 tab Albuterol/Ipratropium (Duoneb) 3 ml NEB [id number] Last Admin: 09/14/17 06:34 Dose: 3 ml Amlodipine Besylate (Norvasc) 5 mg PO DAILY [facility] Atorvastatin Calcium (Lipitor) 20 mg PO HS [facility] Last Admin: 09/13/17 20:14 Dose: 20 mg Benzonatate (Tessalon) 100 mg PO TIDPRN PRN PRN Reason: Cough Last Admin: 09/14/17 08:57 Dose: 100 mg Bisacodyl (Dulcolax) 10 mg PO DAILYPRN PRN PRN Reason: Constipation Bupropion HCl (Wellbutrin Sr) 150 mg PO BID [facility] Last Admin: 09/14/17 08:57 Dose: 150 mg Doxycycline Hyclate (Vibramycin) 100 mg PO BID [facility] Stop: 09/20/17 21:01 Last Admin: 09/14/17 08:57 Dose: 100 mg Famotidine (Pepcid) 20 mg PO BID [facility] Last Admin: 09/14/17 08:57 Dose: 20 mg Mometasone Furoate/Formoterol Fumar (Dulera 200 Mcg/5 Mcg Inhaler) 2 puff INH BID-RT [facility] Last Admin: 09/14/17 06:34 Dose: 2 puff Ondansetron HCl (Zofran Odt) 4 mg PO Q6H PRN PRN Reason: Nausea/Vomiting Pantoprazole Sodium (Protonix) 40 mg PO DAILY [facility] Last Admin: 09/14/17 08:57 Dose: 40 mg Prednisone (Prednisone) 20 mg PO BID [facility] Pregabalin (Lyrica) 75 mg PO BID [facility] Last Admin: 09/14/17 08:57 Dose: 75 mg Sodium Chloride (Flush - Normal Saline) 10 ml IVF Q12HR [facility] Last Admin: 09/14/17 08:58 Dose: 10 ml Sodium Chloride (Flush - Normal Saline) 10 ml IVF PRN PRN PRN Reason: Saline Flush Last Admin: 09/14/17 00:12 Dose: 10 ml Tizanidine HCl (Zanaflex) 4 mg PO Q8H PRN PRN Reason: Nausea/Vomiting Last Admin: 09/14/17 10:18 Dose: 4 mg Trazodone HCl (Desyrel) 150 mg PO HS [facility] Last Admin: 09/13/17 20:15 Dose: 150 mg
[2017-09-14] MEDS: traZODone HCl 150 MG TAB PO SCH (20:47)
[2017-09-14] MEDS: Atorvastatin Calcium 20 MG TAB PO SCH (20:47)
[2017-09-14] MEDS: predniSONE 20 MG TAB PO SCH (20:48)
[2017-09-15] MEDS: HYDROcodone/Acetaminophen 10/325 mg Tablet PO PRN ×3 (03:57→12:16)
[2017-09-15] MEDS: Mometasone/Formoterol 120 PUFF INHALER INH SCH (06:30)
[2017-09-15 08:09] VITALS: BP 160/83; TEMP 97.8
[2017-09-15] MEDS: Bupropion 150 MG SR TAB PO SCH (08:12)
[2017-09-15] MEDS: Doxycycline 100 MG CAP PO SCH (08:12)
[2017-09-15] MEDS: Pregabalin 75 MG CAP PO SCH (08:13)
[2017-09-15] MEDS: predniSONE 20 MG TAB PO SCH (08:13)
[2017-09-15] MEDS: Famotidine 20 MG TAB PO SCH (08:13)
[2017-09-15] MEDS ORDERED: Amlodipine 5 MG TAB PO SCH (09:00)
--- NOTE | 2017-09-15 09:11 | RAD ---
CHEST 2 VIEWS: HISTORY: Pneumonia. COMPARISON: Chest radiograph 2014. FINDINGS: Lungs are clear. No pneumothorax or effusion. Cardiac silhouette and mediastinal contours are withi n normal limits. Mild S-shaped scoliosis thoracolumbar spine. There is some scarring in the lung ba ses and lung apices. No acute osseous abnormality. IMPRESSION: No acute intrathoracic abnormality. POS: [facility]
--- NOTE | 2017-09-15 11:02 | PDOC.PN ---
- Subjective Encounter Start Date: 09/15/17 Encounter Start Time: 10:00 Subjective: breathing better, is ambulating in hallway - Objective MAR Reviewed: Yes Vital Signs & Weight: Vital Signs (12 hours) Temp Pulse Resp BP BP Pulse Ox 09/15/17 08:12 67 160/83 H 09/15/17 08:08 97.8 F 67 20 160/83 H 93 L 09/15/17 08:00 97.8 F 67 20 93 L 09/15/17 06:30 70 14 Weight Weight 198 lb 1.6 oz I&O: 09/14/17 09/15/17 09/16/17 06:59 06:59 06:59 Intake Total 420 1920 Balance 420 1920 Result Diagrams: 09/11/17 04:35 09/11/17 04:35 Phys Exam - Physical Examination HEENT: PERRLA, moist MMs Neck: no JVD, supple Respiratory: no wheezing, no rales occ rhonchi Cardiovascular: RRR, no significant murmur Gastrointestinal: soft, non-tender, positive bowel sounds Musculoskeletal: no edema, pulses present Neurological: non-focal, moves all 4 limbs Psychiatric: normal affect, A&O x 3 Dx/Plan (1) COPD exacerbation Code(s): J44.1 - CHRONIC OBSTRUCTIVE PULMONARY DISEASE W (ACUTE) EXACERBATION Status: Acute (2) Pneumonia Code(s): J18.9 - PNEUMONIA, UNSPECIFIED ORGANISM Status: Acute Qualifiers: Laterality: bilateral (3) LARSON (nonalcoholic steatohepatitis) Code(s): K75.81 - NONALCOHOLIC STEATOHEPATITIS ([place]ARSON) Status: Acute (4) CAD (coronary artery disease) Code(s): I25.10 - ATHSCL HEART DISEASE OF [place] CORONARY ARTERY W/O ANG PCTRS Status: Chronic Qualifiers: Coronary Disease-Associated Artery/Lesion type: [place] artery [place] vs. transplanted heart: [place] heart Comment: Stable. Continue home meds. (5) Chronic back pain Code(s): M54.9 - DORSALGIA, UNSPECIFIED; G89.29 - OTHER CHRONIC PAIN Status: Chronic Comment: Continue home meds. (6) Hyperlipidemia Code(s): E78.5 - HYPERLIPIDEMIA, UNSPECIFIED Status: Chronic Qualifiers: Hyperlipidemia type: unspecified Qualified Code(s): E78.5 - Hyperlipidemia , unspecified Comment: Continue home atorvastatin. (7) Hypertension Code(s): I10 - ESSENTIAL (PRIMARY) HYPERTENSION Status: Chronic Qualifiers: Hypertension type: essential hypertension Qualified Code(s): I10 - Essential (primary) hypertension (8) Anxiety disorder Code(s): F41.9 - ANXIETY DISORDER, UNSPECIFIED Status: Chronic Qualifiers: Anxiety disorder type: generalized anxiety disorder Qualified Code(s): F41.1 - Generalized anxiety disorder - Plan hemostable -: dc pt home on steroid taper and doxy -: to f/u with Pulm in 3 weeks with f/u cxr * . Review of Systems - Medications/Allergies Allergies/Adverse Reactions: Allergies Allergy/AdvReac Type Severity Reaction Status Date / Time Sulfa (Sulfonamide Allergy Verified 11/21/13 19:18 Antibiotics) Medications: Current Medications Acetaminophen (Tylenol) 650 mg PO Q4H PRN PRN Reason: Headache/Fever or Pain Acetaminophen/Codeine Phosphate (Tylenol #3) 1 tab PO Q4H PRN PRN Reason: Mild Pain (1-3) Last Admin: 09/14/17 00:11 Dose: 1 tab Hydrocodone Bitart/Acetaminophen ([place] 10/325) 1 tab PO Q4H PRN PRN Reason: Moderate Pain (4-6) Hydrocodone Bitart/Acetaminophen ([place] 10/325) 2 tab PO Q4H PRN PRN Reason: Moderate to Severe Pain (6-10) Last Admin: 09/15/17 08:15 Dose: 2 tab Albuterol/Ipratropium (Duoneb) 3 ml NEB [id number] [facility] Last Admin: 09/15/17 10:54 Dose: 3 ml Amlodipine Besylate (Norvasc) 5 mg PO DAILY [facility] Last Admin: 09/15/17 08:12 Dose: 5 mg Atorvastatin Calcium (Lipitor) 20 mg PO HS [facility] Last Admin: 09/14/17 20:47 Dose: 20 mg Benzonatate (Tessalon) 100 mg PO TIDPRN PRN PRN Reason: Cough Last Admin: 09/14/17 08:57 Dose: 100 mg Bisacodyl (Dulcolax) 10 mg PO DAILYPRN PRN PRN Reason: Constipation Bupropion HCl (Wellbutrin Sr) 150 mg PO BID [facility] Last Admin: 09/15/17 08:12 Dose: 150 mg Doxycycline Hyclate (Vibramycin) 100 mg PO BID [facility] Stop: 09/20/17 21:01 Last Admin: 09/15/17 08:12 Dose: 100 mg Famotidine (Pepcid) 20 mg PO BID [facility] Last Admin: 09/15/17 08:13 Dose: 20 mg Mometasone Furoate/Formoterol Fumar (Dulera 200 Mcg/5 Mcg Inhaler) 2 puff INH BID-RT [facility] Last Admin: 09/15/17 06:30 Dose: 2 puff Ondansetron HCl (Zofran Odt) 4 mg PO Q6H PRN PRN Reason: Nausea/Vomiting Last Admin: 09/14/17 20:46 Dose: 4 mg Pantoprazole Sodium (Protonix) 40 mg PO DAILY [facility] Last Admin: 09/15/17 08:13 Dose: 40 mg Prednisone (Prednisone) 20 mg PO BID [facility] Last Admin: 09/15/17 08:13 Dose: 20 mg Pregabalin (Lyrica) 75 mg PO BID [facility] Last Admin: 09/15/17 08:13 Dose: 75 mg Sodium Chloride (Flush - Normal Saline) 10 ml IVF Q12HR [facility] Last Admin: 09/15/17 08:15 Dose: 10 ml Sodium Chloride (Flush - Normal Saline) 10 ml IVF PRN PRN PRN Reason: Saline Flush Last Admin: 09/14/17 00:12 Dose: 10 ml Tizanidine HCl (Zanaflex) 4 mg PO Q8H PRN PRN Reason: Nausea/Vomiting Last Admin: 09/14/17 10:18 Dose: 4 mg Trazodone HCl (Desyrel) 150 mg PO HS [facility] Last Admin: 09/14/17 20:47 Dose: 150 mg
--- NOTE | 2017-09-15 12:05 | PRG ---
DATE OF SERVICE: 09/15/2017 SUBJECTIVE: This morning, he is awake, alert, responsive. He is better. OBJECTIVE: VITAL SIGNS: Sats are 90% on room air, blood pressure 160/83, temperature 97, respirations 20. GENERAL: He is better. His sputum is clear. CHEST: Decreased breath sounds. Still some wheezing. CARDIAC: Normal S1 and S2. No gallops. ABDOMEN: Soft, no masses. IMPRESSION: 1. X-ray today shows much improved bilateral bronchopneumonia. 2. Tobacco abuse. 3. Chronic obstructive pulmonary disease. PLAN: Can be discharged home on a tapering dose of prednisone for 2 weeks, Dulera twice a day, rescu e inhaler as needed. Antibiotics for a week. He is to follow up with Dr. Dumont in 2 weeks.
--- NOTE | 2017-09-15 23:42 | DIS ---
DATE OF ADMISSION: 09/09/2017 DATE OF DISCHARGE: 09/15/2017 DISCHARGE DISPOSITION: To home. PRIMARY DISCHARGE DIAGNOSES: Community-acquired pneumonia with chronic obstructive pulmonary disease exacerbation, resolving. SECONDARY DISCHARGE DIAGNOSES: Nonalcoholic steatohepatitis, coronary artery disease, chronic back p ain, dyslipidemia, anxiety disorder, hypertension. PROCEDURES DONE DURING HOSPITALIZATION: Patient had echo with 2D Doppler, which showed an EF of 45% to 50%, had CT angio chest done on the day of admission, which showed no evidence of PE, but there wa s diffuse ground-glass nodular infiltrates in all the lobes. Blood cultures x2, no growth. Viral re spiratory PCR was positive for rhinovirus. Sputum culture grew normal respiratory jf. Discharge H&H 13 and 39, platelet count is 98. This has been chronically low with admission number of 111, BUN 7, creatinine of 0.7 on the day of discharge. Troponin x2 negative. BNP was 47. Urine for histopl asma antigen less than 0.5. HIV 1 and 2 nonreactive. Urine for Legionella pneumophila antigen negat barbie. Urine for Strep pneumo antigen negative. DISCHARGE MEDICATIONS: Doxycycline 100 mg p.o. twice daily for 10 days, prednisone tapering-dose sta rting at 10 mg three times daily to taper over a course of 13 days, Lyrica 75 mg p.o. twice daily, ti zanidine 4 mg p.o. q.8 hourly p.r.n., trazodone 150 mg p.o. twice daily, omeprazole 20 mg p.o. daily, pravastatin 80 mg p.o. at bedtime, DuoNebs q.6 hourly, bupropion sustained-release 150 mg p.o. twice daily, Tessalon Per[place] 100 mg twice daily, aspirin 325 mg p.o. daily, Norvasc 5 mg p.o. daily. ALLERGIES: SULFA. INPATIENT CONSULTS: Dr. Zurita/Dr. Dumont for pulmonology, Dr. Snider for infectious disease. BRIEF COURSE DURING HOSPITALIZATION: Patient initially got admitted for complaints of shortness of b reath and chest pain. His CT angio chest showed multilobar pneumonia. He also had COPD exacerbation with wheezing. Patient was placed initially on broad-spectrum IV antibiotics. He has had steroids placed after 3 days. Patient has responded well to above measures. His antibiotics have been tapere d down to doxycycline now. He also needs to continue tapering prednisone over a course of 14 days. Prior to discharge, he is ambulating in the hallway, eating well. He is otherwise hemodynamically st able and will be shortly discharged home. Please see a [id number] documentation on [facility] for th e day of discharge.
[2017-09-16 18:10] LABS: Cytoplasmic (C-ANCA) <1:20 titer (Neg:<1:20); Myeloperoxidase AutoAbs <9.0 U/mL (0.0-9.0); Perinuclear (P-ANCA) <1:20 titer (Neg:<1:20); Proteinase-3 AutoAbs Less than 3.5 U/mL (0.0-3.5)
== END 2017-09-15 12:34 | disposition home or self-care (01) | DRG 190 ==
LOC: ERS 18:51 → 2NO 21:24 → ONC 09-12 14:02
PROVIDERS: ADMIT Internal Medicine; ATTEND Internal Medicine
DX: J44.0 Chronic obstructive pulmonary disease with (acute) lower respiratory infection (principal); J18.9 Pneumonia, unspecified organism; J44.1 Chronic obstructive pulmonary disease with (acute) exacerbation; I10 Essential (primary) hypertension; E78.5 Hyperlipidemia, unspecified; I25.10 Atherosclerotic heart disease of native coronary artery without angina pectoris; K75.81 Nonalcoholic steatohepatitis (NASH); K57.30 Diverticulosis of large intestine without perforation or abscess without bleeding; F12.10 Cannabis abuse, uncomplicated; F17.210 Nicotine dependence, cigarettes, uncomplicated; G89.29 Other chronic pain; M54.5 Low back pain; F41.9 Anxiety disorder, unspecified; D69.6 Thrombocytopenia, unspecified; B34.8 Other viral infections of unspecified site; Z96.652 Presence of left artificial knee joint; Z88.2 Allergy status to sulfonamides; Z79.899 Other long term (current) drug therapy; Z80.8 Family history of malignant neoplasm of other organs or systems; Z95.5 Presence of coronary angioplasty implant and graft; Z83.6 Family history of other diseases of the respiratory system; Z87.01 Personal history of pneumonia (recurrent); Z87.81 Personal history of (healed) traumatic fracture; Z86.69 Personal history of other diseases of the nervous system and sense organs; Z90.49 Acquired absence of other specified parts of digestive tract
CPT/HCPCS: 36415; 71045; 71046; 80048; 83520; 83605; 83615; 84484; 85025; 85610; 85730; 86200; 86256; 87070; 87205; 87385; 87389; 87633; 87899; 93306; 93970; 94640; 94760; A4216; J0456; J0696; J1650; J2920; J3370; J7050; J7506; J7620; Q0162

== ENCOUNTER 2017-10-14 13:04 | Inpatient (IN) | payer MEDICARE ==
[2017-10-14 14:09] LABS: #Lymphocytes 0.8 thou/uL (1.20-3.40); #Monocytes 0.2 thou/uL (0.11-0.59); #Neutrophils 2.8 thou/uL (1.40-6.50); %Eosinophils 0.3 % (0.0-10.0); %Lymphocytes 21.3 % (21.0-51.0); %Monocytes 5.5 % (0.0-10.0); %Neutrophils 72.9 % (42.0-75.0); Hemoglobin 12.9 g/dL (14.0-18.0); Mean Corpuscular HGB CONC 35.5 g/dL (32.0-36.0); Mean Corpuscular Hemoglobin 33.7 pg (27.0-31.0); Mean Platelet Volume 7.3 fL (7.4-10.4); Platelet Count 98 thou/uL (130-400); RBC Distribution Width 11.8 % (11.5-14.5); Red Blood Cell (RBC) Count 3.83 mill/uL (4.70-6.10); White Blood Cell (WBC) Count 3.8 thou/uL (4.8-10.8)
--- NOTE | 2017-10-14 14:22 | RAD ---
CHEST 1 VIEW: Date: 10/14/17 HISTORY: Cough. COMPARISON: Chest radiograph dated 09/12/17. FINDINGS: Extensive right lung air space opacities are present throughout the right upper, middle, and lower lo bes. Left lung relatively clear. No pneumothorax. No acute osseous abnormality. IMPRESSION: Asymmetric right lung air space opacity concerning for multifocal infection. POS: [facility]
[2017-10-14 14:25] LABS: CKMB 1.4 ng/mL (0-6.6); Troponin I Less than 0.010 ng/mL (< 0.028)
[2017-10-14 14:27] LABS: ALT (SGPT) 88 U/L (8-55); AST (SGOT) 116 U/L (5-34); Albumin 3.3 g/dL (3.4-4.8); Alkaline Phosphatase 55 U/L (40-150); Anion Gap 14 mmol/L (10-20); BUN (Urea Nitrogen) 18 mg/dL (8.4-25.7); Bilirubin, Total 1.2 mg/dL (0.2-1.2); Calc. Creatinine Clearance 0 mL/min (70-130); Calcium 8.1 mg/dL (7.8-10.44); Carbon Dioxide 19 mmol/L (23-31); Chloride 106 mmol/L (98-107); Estimated GFR-MDRD 53; Globulin 2.9 g/dL (2.4-3.5); Glucose 91 mg/dL (80-115); Potassium 3.8 mmol/L (3.5-5.1); Protein, Total 6.2 g/dL (5.8-8.1); Sodium 135 mmol/L (136-145)
[2017-10-14 15:44] LABS: Bilirubin Negative (Negative); Blood, Urine Negative (Negative); Clarity CLEAR (Clear); Glucose, Urine (Dipstick) Negative (Negative); Leukocyte Negative (Negative); Nitrite Negative (Negative); Protein, Urine (Dipstick) Negative (Neg-Trace); Specific Gravity, Urine 1.005 (1.002-1.036)
[2017-10-14] MEDS ORDERED: HYDROcodone/Acetaminophen 7.5/325 mg Tablet ONE (15:59)
[2017-10-14] MEDS ORDERED: cefTRIAXone\\ROCEPHIN 2 GM VIAL ONE (15:59)
[2017-10-14] MEDS ORDERED: Azithromycin 500 MG VIAL ONE (15:59)
[2017-10-14 18:38] LABS: Lactic Acid 2.2 mmol/L (0.5-2.2)
[2017-10-14] MEDS ORDERED: Ondansetron ODT 4 MG TAB SL PRN (18:44)
[2017-10-14] MEDS ORDERED: Acetaminophen 325 MG TAB PO PRN (18:44)
[2017-10-14] MEDS ORDERED: Ondansetron HCl/PF 4 MG/2 ML Vial IVP PRN (18:44)
[2017-10-14] MEDS ORDERED: HYDROcodone/Acetaminophen 5/325 mg Tablet PO PRN ×2 (18:44)
[2017-10-14 19:17] VITALS: BMI 27.4
[2017-10-14] MEDS ORDERED: hydrOXYzine 25 MG TAB PO PRN (21:39)
[2017-10-14] MEDS: Vancomycin HCl 1 GM in Premix Bag 1 BAG IVPB SCH (22:10)
[2017-10-14] MEDS: Sodium Chloride 0.9% 1,000 ML IV SCH (22:10)
--- NOTE | 2017-10-15 01:21 | HP ---
CHIEF COMPLAINT: Fever and cough. HISTORY OF PRESENT ILLNESS: The patient is a 62-year-old male with a history of severe pulmonary disease secondary to chronic smoking, marijuana use. The patient was previously admitted here in August. The patient at that time had significant bilateral pneumonia and confirmed on chest x-ray with scattered ground-glass appearance to the lungs. He had significant bullous emphysema as well. The patient was treated with broad-spectrum antibiotics, seen by Pulmonology, and ultimately felt to be stable for discharge to home. The patient reports that he was not sure he felt completely well when he went home, but on the day of this admission, the patient said he was actually feeling quite well. Had been fairly active with no issues. Went to bed at home that evening, did not have much of an appetite, then went to bed, and subsequently awoke with shaking rigors and a temperature up to 101. The patient presented to the Emergency Department. He denies having any significant cough, but he does have some shortness of breath that is slightly worse than his baseline. REVIEW OF SYSTEMS: Reviewed and were negative through a 10-system review except those things mentioned in the history of present illness. PAST MEDICAL HISTORY: Pneumonia. The patient reported he has severe pneumonia requiring intubation in the past, coronary artery disease, hypertension, hyperlipidemia, chronic back pain. PAST SURGICAL HISTORY: The patient has had multiple back surgeries, left knee replacement, and intracoronary stent placement. SOCIAL HISTORY: The patient has a 48-year history of smoking 3-4 packs per day. He has not smoked in 31 days. Tends to binge drink about 12 beers occasionally. Uses marijuana 3-4 times a week. He is . FAMILY HISTORY: Notable for mother with COPD. Also, notable for melanoma. ALLERGIES: SULFA. MEDICATIONS: Hydroxyzine 25 mg t.i.d., Coreg 3.125 b.i.d., tizanidine 4 mg q.8 hours., DuoNeb q.4 hours p.r.n., Dulera 2 puffs b.i.d., Norvasc 5 mg every day, aspirin 325 every day, omeprazole 20 mg every day, bupropion 150 mg p.o. b.i.d. , Lyrica 75 t.i.d., and pravastatin 80 mg at bedtime. PHYSICAL EXAMINATION: VITAL SIGNS: Temperature 98.3, pulse 84, respirations 16, O2 sat 95% on 2 liters by nasal cannula, BP 111/65. GENERAL APPEARANCE: Age-appropriate male. He is in no distress. He is awake, alert, oriented, pleasant, cooperative. HEENT: PERRL. No OP lesions. TMs are normal. NECK: Supple and symmetric. No lymphadenopathy, JVD, or carotid bruits. CARDIOVASCULAR: Regular rate and rhythm without murmurs. LUNGS: Have some scattered rales with decreased breath sounds throughout. ABDOMEN: Soft, nontender, nondistended. Positive bowel sounds. No masses, no organomegaly. EXTREMITIES: Warm and dry. SKIN: Some erythema over the shoulder areas. LABORATORY DATA: White count 3.8, hemoglobin 12.9, platelet count 98. Sodium 135, potassium 3.8, chloride 106, CO2 of 19, BUN 18, creatinine 1.37, lactic acid 2.4, AST 116, ALT 88. Urinalysis is negative. Chest x-ray shows some evidence of infiltrates on the right, concerning for possible multifocal infection. ASSESSMENT AND PLAN: 1. Pneumonia. This patient has severe chronic obstructive pulmonary disease and was recently admitted with bilateral pneumonia with scattered ground-glass appearance throughout the lungs. Appeared to be a fairly atypical-type pneumonia. The patient was treated and he now returns with evidence of pneumonia again. Seems to be a bit of an unusual case in a patient with pretty severe lung disease. We will reconsult Pulmonology given the nature of the recurrent disease. I will consider Infectious Disease consult as well. In the interim, we will cover with cefepime and vancomycin for hospital-acquired bacteria. 2. Chronic obstructive pulmonary disease. Continue with the nebulizers and supplemental oxygen as needed. 3. Mild leukopenia. The patient had this previously and may go along with some type of atypical-type infection. 4. Elevated liver enzymes, possibly related to the patient's alcohol intake. We will continue to monitor. 5. History of coronary disease, stable. Continue with his usual medications including aspirin. 6. Hypertension, stable. 7. Hyperlipidemia, stable. 8. Chronic back pain. Continue with his usual home pain medication regimen. [facility]
[2017-10-15] MEDS: tiZANidine HCl 4 MG TAB PO PRN ×3 (05:34→20:58)
[2017-10-15] MEDS: Sodium Chloride 0.9% 1,000 ML IV SCH (05:35)
[2017-10-15] MEDS ORDERED: HYDROcodone/Acetaminophen 5/325 mg Tablet PO PRN ×2 (05:44→09:50)
[2017-10-15] MEDS: HYDROcodone/Acetaminophen 5/325 mg Tablet PO PRN ×3 (05:50→20:57)
[2017-10-15] MEDS: Mometasone/Formoterol 120 PUFF INHALER INH SCH ×2 (06:44→19:33)
[2017-10-15] MEDS: Pregabalin 75 MG CAP PO SCH ×3 (08:02→20:56)
[2017-10-15] MEDS: Amlodipine 5 MG TAB PO SCH (08:03)
[2017-10-15] MEDS: Bupropion 150 MG SR TAB PO SCH ×2 (08:04→20:58)
[2017-10-15] MEDS: Aspirin 325 mg Enteric Coated Tablet PO SCH (08:04)
[2017-10-15] MEDS: Carvedilol 3.125 MG TAB PO SCH ×2 (08:04→20:58)
[2017-10-15] MEDS: Vancomycin HCl 1 GM in Premix Bag 1 BAG IVPB SCH ×2 (08:05→21:00)
[2017-10-15] MEDS: Cefepime 2 GM in Sodium Chloride 0.9% 100 ML IVPB SCH ×2 (08:05→20:58)
[2017-10-15] MEDS ORDERED: Senokot 8.6 MG TAB PO PRN (09:50)
[2017-10-15] MEDS ORDERED: Artificial Tears 18 DROP/0.9 ML EA EYE PRN (09:50)
[2017-10-15] MEDS ORDERED: Loperamide HCl 2 MG CAP PO PRN (09:50)
[2017-10-15] MEDS ORDERED: Loratadine 10 MG TAB PO PRN (09:50)
[2017-10-15] MEDS ORDERED: hydrALAZINE 20 MG/ML VIAL SLOW IVP PRN (09:50)
[2017-10-15] MEDS ORDERED: Milk Of Magnesia 30 ML UDCUP PO PRN (09:50)
[2017-10-15] MEDS ORDERED: Mag-Al 1200 mg/1200 mg/30 ML UDCUP PO PRN (09:50)
[2017-10-15] MEDS ORDERED: Acetaminophen 325 MG TAB PO PRN (09:50)
[2017-10-15] MEDS ORDERED: Sodium Chloride 0.65% Nasal 44 ML BOT EA NARE PRN (09:50)
[2017-10-15] MEDS ORDERED: Chloraseptic Spray 180 ml Bottle PO PRN (09:50)
[2017-10-15] MEDS ORDERED: Ondansetron ODT 4 MG TAB PO PRN (09:50)
[2017-10-15] MEDS ORDERED: Diabetic Tussin 200 MG/10 ML UDCUP PO PRN (09:50)
[2017-10-15] MEDS ORDERED: Eucerin (Mineral Oil/Petrolatum,White) 30 gm Jar TOP PRN (09:50)
[2017-10-15] MEDS ORDERED: cloNIDine 0.1 MG TAB PO PRN (09:50)
--- NOTE | 2017-10-15 10:36 | PDOC.PN ---
- Subjective Encounter Start Date: 10/15/17 Encounter Start Time: 08:20 -: old records requested/rev Patient seen and examined. No new complaints. No overnight events - Objective MAR Reviewed: Yes Vital Signs & Weight: Vital Signs (12 hours) Temp Pulse Resp BP BP BP Pulse Ox 10/15/17 10:15 69 16 96 10/15/17 08:08 97.7 F 79 16 103/58 L 92 L 10/15/17 08:00 97.7 F 79 16 10/15/17 06:47 73 16 92 L 10/15/17 06:44 73 16 92 L 10/15/17 04:30 97.8 F 77 18 128/70 93 L 10/14/17 23:27 97.3 F L 79 16 126/73 95 Weight Weight 197 lb Result Diagrams: 10/14/17 13:39 10/14/17 13:39 Radiology Reviewed by me: Yes Phys Exam - Physical Examination Constitutional: NAD HEENT: PERRLA, moist MMs, sclera anicteric Neck: no JVD, supple Respiratory: no wheezing, no rhonchi rigt side rales Cardiovascular: RRR, no significant murmur Gastrointestinal: soft, non-tender, no distention, positive bowel sounds Musculoskeletal: no edema, pulses present Neurological: non-focal, normal sensation, moves all 4 limbs Psychiatric: normal affect, A&O x 3 Skin: no rash, normal turgor Dx/Plan (1) Abnormal LFTs Code(s): R94.5 - ABNORMAL RESULTS OF LIVER FUNCTION STUDIES Status: Acute (2) COPD exacerbation Code(s): J44.1 - CHRONIC OBSTRUCTIVE PULMONARY DISEASE W (ACUTE) EXACERBATION Status: Acute (3) Lactic acidosis Code(s): E87.2 - ACIDOSIS Status: Acute (4) Multifocal pneumonia Code(s): J18.9 - PNEUMONIA, UNSPECIFIED ORGANISM Status: Acute (5) Pancytopenia Code(s): D61.818 - OTHER PANCYTOPENIA Status: Acute (6) Anxiety disorder Code(s): F41.9 - ANXIETY DISORDER, UNSPECIFIED Status: Chronic Qualifiers: (7) CAD (coronary artery disease) Code(s): I25.10 - ATHSCL HEART DISEASE OF [place] CORONARY ARTERY W/O ANG PCTRS Status: Chronic Comment: Stable. Continue home meds. (8) CKD (chronic kidney disease) stage 3, GFR 30-59 ml/min Code(s): N18.3 - CHRONIC KIDNEY DISEASE, STAGE 3 (MODERATE) Status: Chronic (9) Chronic back pain Code(s): M54.9 - DORSALGIA, UNSPECIFIED; G89.29 - OTHER CHRONIC PAIN Status: Chronic Comment: Continue home meds. (10) GERD (gastroesophageal reflux disease) Code(s): K21.9 - GASTRO-ESOPHAGEAL REFLUX DISEASE WITHOUT ESOPHAGITIS Status: Chronic (11) Hyperlipidemia Code(s): E78.5 - HYPERLIPIDEMIA, UNSPECIFIED Status: Chronic Qualifiers: Comment: Continue home atorvastatin. (12) Hypertension Code(s): I10 - ESSENTIAL (PRIMARY) HYPERTENSION Status: Chronic Qualifiers: - Plan cont current plan of care, continue antibiotics, respiratory therapy * continue cefepime, levaquin and vancomycin * pulmonary consulted * add mucinex * home medication reconciled. Review of Systems - Review of Systems Constitutional: negative: fever, chills, sweats, weakness, malaise, other Eyes: negative: Pain, Vision Change, Conjunctivae Inflammation, Eyelid Inflammation, Redness, Other Respiratory: Cough, Shortness of Breath. negative: Dry, Hemoptysis, SOB with Excertion, Pleuritic Pain, Sputum, Wheezing Cardiovascular: negative: chest pain, palpitations, orthopnea, paroxysmal nocturnal dyspnea, edema, light headedness, other Gastrointestinal: negative: Nausea, Vomiting, Abdominal Pain, Diarrhea, Constipation, Melena, Hematochezia, Other Genitourinary: negative: Dysuria, Frequency, Incontinence, Hematuria, Retention , Other Musculoskeletal: negative: Neck Pain, Shoulder Pain, Arm Pain, Back Pain, Hand Pain, Leg Pain, Foot Pain, Other Skin: negative: Rash, Lesions, Mannie, Bruising, Other - Medications/Allergies Allergies/Adverse Reactions: Allergies Allergy/AdvReac Type Severity Reaction Status Date / Time Sulfa (Sulfonamide Allergy Verified 11/21/13 19:18 Antibiotics) Medications: Current Medications Acetaminophen (Tylenol) 650 mg PO Q4H PRN PRN Reason: Headache/Fever or Mild Pain Hydrocodone Bitart/Acetaminophen ([place] 5/325) 1 tab PO Q6H PRN PRN Reason: Pain 4-6 Hydrocodone Bitart/Acetaminophen ([place] 5/325) 2 tab PO Q6H PRN PRN Reason: Pain 7-10 Last Admin: 10/15/17 05:50 Dose: 2 tab Hydrocodone Bitart/Acetaminophen ([place] 5/325) 1 tab PO Q4H PRN PRN Reason: Moderate Pain (4-6) Al Hydroxide/Mg Hydroxide (Maalox) 15 ml PO Q4H PRN PRN Reason: Heartburn or Indigestion Albuterol/Ipratropium (Duoneb) 3 ml NEB [id number] [facility] Last Admin: 10/15/17 10:15 Dose: 3 ml Amlodipine Besylate (Norvasc) 5 mg PO DAILY [facility] Last Admin: 10/15/17 08:03 Dose: 5 mg Artificial Tears (Tears Naturale) 0 drop EA EYE PRN PRN PRN Reason: Dry Eyes Aspirin (Ecotrin) 325 mg PO DAILY [facility] Last Admin: 10/15/17 08:04 Dose: 325 mg Atorvastatin Calcium (Lipitor) 20 mg PO [facility] Bupropion HCl (Wellbutrin Sr) 150 mg PO BID [facility] Last Admin: 10/15/17 08:04 Dose: 150 mg Carvedilol (Coreg) 3.125 mg PO BID [facility] Last Admin: 10/15/17 08:04 Dose: 3.125 mg Clonidine (Catapres) 0.1 mg PO Q4H PRN PRN Reason: Systolic BP > 180 Guaifenesin (Mucinex) 600 mg PO Q12HR [facility] Guaifenesin (Robitussin Sf) 200 mg PO Q4H PRN PRN Reason: Cough Hydralazine HCl (Apresoline) 10 mg SLOW IVP Q4H PRN PRN Reason: Systolic BP > 180 Hydroxyzine HCl (Atarax) 25 mg PO TID PRN PRN Reason: Anxiety Cefepime HCl 2 gm/ Sodium (Chloride) 100 mls @ 200 mls/hr IVPB Q12HR [facility] Last Admin: 10/15/17 08:05 Dose: 100 mls Vancomycin HCl 1 gm/ Device 200 mls @ 200 mls/hr IVPB 1000,2200 [facility] Last Admin: 10/15/17 08:05 Dose: 200 mls Levofloxacin 500 mg/ Device 100 mls @ 100 mls/hr IVPB Q24HR [facility] Loperamide HCl (Imodium) 2 mg PO PRN PRN PRN Reason: Diarrhea/Loose Stools Loratadine (Claritin) 10 mg PO DAILYPRN PRN PRN Reason: Sinus Symptoms Magnesium Hydroxide (Milk Of Magnesium) 30 ml PO DAILYPRN PRN PRN Reason: Constipation Mineral Oil/White Petrolatum (Eucerin Cream) 0 gm TOP BIDPRN PRN PRN Reason: Dry Skin Mometasone Furoate/Formoterol Fumar (Dulera 200 Mcg/5 Mcg Inhaler) 2 puff INH BID-RT [facility] Last Admin: 10/15/17 06:44 Dose: 2 puff Ondansetron HCl (Zofran Odt) 4 mg PO Q6H PRN PRN Reason: Nausea/Vomiting Ondansetron HCl (Zofran) 4 mg IVP Q6H PRN PRN Reason: Nausea/Vomiting Pantoprazole Sodium (Protonix) 40 mg PO DAILY [facility] Last Admin: 10/15/17 08:04 Dose: 40 mg Phenol (Chloraseptic [place] 180 Ml Bot) 0 ml PO PRN PRN PRN Reason: Sore Throat Pregabalin (Lyrica) 75 mg PO TID [facility] Last Admin: 10/15/17 08:02 Dose: 75 mg Saccharomyces Boulardii (Florastor) 250 mg PO DAILY [facility] Senna (Senokot) 2 tab PO HSPRN PRN PRN Reason: Constipation Sodium Chloride ([place] Nasal [place] 0.65%) 0 ml EA NARE QIDPRN PRN PRN Reason: Nasal Congestion Temazepam (Restoril) 15 mg PO HSPRN PRN PRN Reason: Insomnia Tizanidine HCl (Zanaflex) 4 mg PO Q8H PRN PRN Reason: Muscle Spasm Last Admin: 10/15/17 05:34 Dose: 4 mg
--- NOTE | 2017-10-15 18:03 | CON ---
DATE OF CONSULTATION: 10/15/2017 SERVICE: Pulmonary Medicine. REASON FOR CONSULTATION: Pneumonia. HISTORY OF PRESENT ILLNESS: Patient is a 62-year-old white male with past medical history significant for essentially nothing up until he presented to the hospital a month ago with infectious symptoms. He has been having night sweats and fevers that have been on and off for about a month and a half to 2 months. About a month ago, he presented to the emergency department. He was given a brief course of steroids and antibiotics. Ultimately, he felt much improved. (00:00) back to baseline, but was eventually discharged from the hospital. He nearly returned to his usual state of health. That being said , he could tell that something was off. He could not really elaborate on that feeling. He specifically was not short of breath. He has been having some sputum production on and off for the past several months. He denies having any hemoptysis. On the night that he came in, he was not feeling quite well. He went to bed and woke up in the middle of the night once again with shaking chills. He had diaphoresis and rigors. His daughter took his temperature and he was 101.8. As such, he returned to the emergency department. He was subsequently admitted. He has been started on broad spectrum antibiotics overnight. A chest x-ray was abnormal prompting this evaluation. At this point , no steroids have been initiated. PAST MEDICAL HISTORY: 1. Recent community-acquired pneumonia, status post full course of therapy and a 2 week steroid taper. 2. Coronary artery disease. 3. Hypertension. 4. Dyslipidemia. 5. Chronic back pain. PAST SURGICAL HISTORY: 1. Back surgeries, multiple. 2. Left knee replacement. 3. Percutaneous coronary intervention. SOCIAL HISTORY: He has about a [id number] history of smoking and tells me he has not smoked in over a month. He has a history of very heavy alcohol use. He drinks 6 beers once a week. That being said, he told a different provided slightly different amount. He uses marijuana fairly frequently. He denies any street drugs. He specifically does not use any methamphetamine, cocaine, heroin. He has no exposure to chemicals, dust, asbestos or tuberculosis or anything that is known to cause lung injuries. FAMILY HISTORY: Noncontributory. ALLERGIES: SULFA. MEDICATIONS: List of his inpatient medications were reviewed. No specific updates were made at this time. REVIEW OF SYSTEMS: General, head, ears, eyes, nose, throat, cardiovascular, respiratory, GI, , musculoskeletal, neurologic and skin is negative except as mentioned in the HPI. PHYSICAL EXAMINATION: VITAL SIGNS: Afebrile, pulse 64, blood pressure 100/61, respirations 16, saturation 93% on room air. GENERAL: The patient is awake and alert, in no apparent distress. LUNGS: Dependent crackles are present throughout bilateral lung herrera. HEART: Normal rate, regular. ABDOMEN: Soft, nontender, nondistended. Bowel sounds are positive. MUSCULOSKELETAL: No cyanosis or clubbing. There is no pitting throughout. GENITOURINARY: No Arce. NEUROLOGIC: Grossly nonfocal. LABORATORY DATA: WBC 3.8, hemoglobin 12.9 and roughly stable, platelets 98, 000. INR 1.3, D-dimer 1.48. Creatinine 1.37, above baseline of 0.75. AST and ALT continue to trend upwards. Troponin is negative x1. Lactate has cleared to 2.2. Urinalysis is without red blood cells on multiple occasions. Urine toxicology screen is negative. ANCA's and rheumatoid studies are all unremarkable. HIV, strep legionella antigens as well as urine histoplasma were unremarkable. Prior respiratory virus panel was growing rhinovirus. IMAGING: CT of the chest previously demonstrated diffuse ground glass opacifications throughout bilateral lung herrera. Echocardiogram demonstrates a 45%-50% ejection fraction with trivial valvular abnormalities. The right ventricle was normal in size and function. Chest x-ray from this hospital stay demonstrates a recrudescence in alveolar filling pattern, which is more predominantly displayed on the right compared to the left. Fluid was also noted to be within the fissure. No other obvious acute cardiopulmonary abnormality is identified. ASSESSMENT: 1. Pulmonary infiltrate. 2. Pancytopenia. 3. Systemic inflammatory response syndrome. 4. Chronic systolic heart failure with possible minimal volume overload. 5. Chronic obstructive pulmonary disease without clear exacerbation currently. DISCUSSION AND PLAN: The previous inflammatory changes of the lungs could be consistent with water. That being said, that would not be consistent with his presentation. We will get an NEY profile, IgG4 level, and anti-Ashlee and antibodies to round out our inflammatory workup. We will continue our antibiotics. I will try to hold off on steroids for the time being. He previously did get better with a combination of antibiotics and steroids. I am curious as to whether or not an underlying inflammatory condition exists. If he fails to improve with antibiotics alone, a repeat CT scan and bronchoscopy may need to be considered. Prior HIV was unremarkable. I will add a B12 to tomorrow morning's laboratories. We will also try to collect an AFB smear and culture. Pulmonary Critical Care will continue to follow along. 70 minutes have been devoted to this patient in various activities. I personally reviewed all imaging studies and laboratory data noted within this document. For fifty percent of this time, I was interacting with the patient at the bedside or coordinating care with the care team. For the remainder of the time I was immediately available to the patient in the hospital unit. LALA
[2017-10-15] MEDS: guaiFENesin ER 600 MG TAB PO SCH (20:58)
[2017-10-15] MEDS: Atorvastatin Calcium 20 MG TAB PO SCH (20:58)
[2017-10-16] MEDS: HYDROcodone/Acetaminophen 5/325 mg Tablet PO PRN ×4 (04:05→23:41)
[2017-10-16 05:15] LABS: ALT (SGPT) 66 U/L (8-55); AST (SGOT) 63 U/L (5-34); Albumin 3.2 g/dL (3.4-4.8); Alkaline Phosphatase 77 U/L (40-150); Anion Gap 10 mmol/L (10-20); BUN (Urea Nitrogen) 13 mg/dL (8.4-25.7); Bilirubin, Total 0.5 mg/dL (0.2-1.2); CK (CPK) 83 U/L (30-200); Calc. Creatinine Clearance 115 mL/min (70-130); Calcium 8.5 mg/dL (7.8-10.44); Carbon Dioxide 25 mmol/L (23-31); Chloride 108 mmol/L (98-107); Estimated GFR-MDRD Greater than 90; Glucose 116 mg/dL (80-115); Potassium 3.9 mmol/L (3.5-5.1); Protein, Total 6.2 g/dL (5.8-8.1); Sodium 139 mmol/L (136-145)
[2017-10-16] MEDS: tiZANidine HCl 4 MG TAB PO PRN ×3 (05:36→23:41)
[2017-10-16 05:51] LABS: HBCM Index 0.09 S/CO (0-0.79); Hep A IgM AB Non-Reactive (NonReactive); Hep A IgM S/CO 0.14 S/CO (0-0.79); Hep B Surf Ag Non-Reactive S/CO (NonReactive); Hepatitis B Core IGM Abs Non-Reactive (NonReactive)
[2017-10-16 06:11] LABS: Band 23 % (5-11); Hemoglobin 12.1 g/dL (14.0-18.0); Lymphocytes 19 % (21-51); MDiff Complete? YES; Mean Corpuscular HGB CONC 32.6 g/dL (32.0-36.0); Mean Corpuscular Hemoglobin 31.4 pg (27.0-31.0); Mean Corpuscular Volume 96.3 fL (78.0-98.0); Mean Platelet Volume 8.1 fL (7.4-10.4); Metamyelocyte 2 % (0-0); Monocytes 5 % (0-10); Neutrophil 51 % (42-75); PLT Morphology Comment Appears Decreased; Platelet Count 103 thou/uL (130-400); RBC Distribution Width 12.2 % (11.5-14.5); Red Blood Cell (RBC) Count 3.84 mill/uL (4.70-6.10); White Blood Cell (WBC) Count 9.1 thou/uL (4.8-10.8)
[2017-10-16] MEDS: Mometasone/Formoterol 120 PUFF INHALER INH SCH ×2 (06:38→19:27)
[2017-10-16 06:43] LABS: Hep C IgG Ab Reflex HepC Qnt (NonReactive); Hep C Index 14.29 S/CO (0-0.79)
[2017-10-16] MEDS: Carvedilol 3.125 MG TAB PO SCH ×2 (07:59→20:03)
[2017-10-16] MEDS: Saccharomyces boulardii 250 MG CAP PO SCH (08:00)
[2017-10-16] MEDS: Bupropion 150 MG SR TAB PO SCH ×2 (08:00→20:03)
[2017-10-16] MEDS: guaiFENesin ER 600 MG TAB PO SCH ×2 (08:00→20:03)
[2017-10-16] MEDS: Aspirin 325 mg Enteric Coated Tablet PO SCH (08:01)
[2017-10-16] MEDS: Amlodipine 5 MG TAB PO SCH (08:01)
[2017-10-16] MEDS: Pregabalin 75 MG CAP PO SCH ×3 (08:01→20:04)
[2017-10-16 09:45] LABS: Vancomycin, Trough 7.9 ug/mL
[2017-10-16] MEDS: Vancomycin HCl 1 GM in Premix Bag 1 BAG IVPB SCH (10:32)
[2017-10-16] MEDS: Cefepime 2 GM in Sodium Chloride 0.9% 100 ML IVPB SCH ×2 (11:25→20:03)
[2017-10-16] MEDS: Vancomycin HCl 1.5 GM in Sodium Chloride 0.9% 250 ML 300 ML IVPB SCH ×2 (11:26→22:06)
--- NOTE | 2017-10-16 11:37 | PDOC.PN ---
- Subjective Encounter Start Date: 10/16/17 Encounter Start Time: 08:00 Patient seen and examined. No new complaints. No overnight events still has cough but less than yesterday, no fever - Objective MAR Reviewed: Yes Vital Signs & Weight: Vital Signs (12 hours) Temp Pulse Resp BP Pulse Ox 10/16/17 10:55 55 L 16 95 10/16/17 08:01 58 L 10/16/17 07:26 97.6 F 58 L 18 124/77 92 L 10/16/17 07:14 98 F 68 16 10/16/17 06:40 68 16 94 L 10/16/17 06:38 68 16 94 L 10/16/17 01:11 94 L Weight Weight 197 lb I&O: 10/15/17 10/16/17 10/17/17 06:59 06:59 06:59 Intake Total 1040 Balance 1040 Result Diagrams: 10/16/17 04:03 10/16/17 04:03 Phys Exam - Physical Examination Constitutional: NAD HEENT: PERRLA, moist MMs, sclera anicteric Neck: no JVD, supple Respiratory: no wheezing, no rhonchi right side rales+ Cardiovascular: RRR, no significant murmur, no rub Gastrointestinal: soft, non-tender, no distention, positive bowel sounds Musculoskeletal: no edema, pulses present Neurological: non-focal, normal sensation, moves all 4 limbs Lymphatic: no nodes Psychiatric: normal affect, A&O x 3 Skin: no rash, normal turgor Dx/Plan (1) Multifocal pneumonia Code(s): J18.9 - PNEUMONIA, UNSPECIFIED ORGANISM Status: Acute (2) Abnormal LFTs Code(s): R94.5 - ABNORMAL RESULTS OF LIVER FUNCTION STUDIES Status: Chronic (3) Lactic acidosis Code(s): E87.2 - ACIDOSIS Status: Resolved (4) Pancytopenia Code(s): D61.818 - OTHER PANCYTOPENIA Status: Acute (5) Anxiety disorder Code(s): F41.9 - ANXIETY DISORDER, UNSPECIFIED Status: Chronic Qualifiers: (6) CAD (coronary artery disease) Code(s): I25.10 - ATHSCL HEART DISEASE OF [place] CORONARY ARTERY W/O ANG PCTRS Status: Chronic Comment: (7) CKD (chronic kidney disease) stage 3, GFR 30-59 ml/min Code(s): N18.3 - CHRONIC KIDNEY DISEASE, STAGE 3 (MODERATE) Status: Chronic (8) Chronic back pain Code(s): M54.9 - DORSALGIA, UNSPECIFIED; G89.29 - OTHER CHRONIC PAIN Status: Chronic Comment: (9) GERD (gastroesophageal reflux disease) Code(s): K21.9 - GASTRO-ESOPHAGEAL REFLUX DISEASE WITHOUT ESOPHAGITIS Status: Chronic (10) Hyperlipidemia Code(s): E78.5 - HYPERLIPIDEMIA, UNSPECIFIED Status: Chronic Qualifiers: Comment: (11) Hypertension Code(s): I10 - ESSENTIAL (PRIMARY) HYPERTENSION Status: Chronic Qualifiers: (12) COPD (chronic obstructive pulmonary disease) Status: Chronic (13) Chronic hepatitis C Code(s): B18.2 - CHRONIC VIRAL HEPATITIS C Status: Chronic - Plan cont current plan of care, continue antibiotics, respiratory therapy * medication reviewed as below * symptomatic treatment * continue current antibiotics as below, vancomycin , levaquin and cefepime * follow on culture result. * add folic acid and vitamin B12 * follow up on send out test results Review of Systems - Review of Systems Eyes: negative: Pain, Vision Change, Conjunctivae Inflammation, Eyelid Inflammation, Redness, Other ENT: negative: Ear Pain, Ear Discharge, Nose Pain, Nose Discharge, Nose Congestion, Mouth Pain, Mouth Swelling, Throat Pain, Throat Swelling, Other Respiratory: Cough, Sputum. negative: Dry, Shortness of Breath, Hemoptysis, SOB with Excertion, Pleuritic Pain, Wheezing Cardiovascular: negative: chest pain, palpitations, orthopnea, paroxysmal nocturnal dyspnea, edema, light headedness, other Gastrointestinal: negative: Nausea, Vomiting, Abdominal Pain, Diarrhea, Constipation, Melena, Hematochezia, Other Genitourinary: negative: Dysuria, Frequency, Incontinence, Hematuria, Retention , Other Musculoskeletal: negative: Neck Pain, Shoulder Pain, Arm Pain, Back Pain, Hand Pain, Leg Pain, Foot Pain, Other Skin: negative: Rash, Lesions, Mannie, Bruising, Other - Medications/Allergies Allergies/Adverse Reactions: Allergies Allergy/AdvReac Type Severity Reaction Status Date / Time Sulfa (Sulfonamide Allergy Verified 11/21/13 19:18 Antibiotics) Medications: Current Medications Acetaminophen (Tylenol) 650 mg PO Q4H PRN PRN Reason: Headache/Fever or Mild Pain Hydrocodone Bitart/Acetaminophen ([place] 5/325) 1 tab PO Q6H PRN PRN Reason: Pain 4-6 Hydrocodone Bitart/Acetaminophen ([place] 5/325) 2 tab PO Q6H PRN PRN Reason: Pain 7-10 Last Admin: 10/16/17 10:05 Dose: 2 tab Hydrocodone Bitart/Acetaminophen ([place] 5/325) 1 tab PO Q4H PRN PRN Reason: Moderate Pain (4-6) Al Hydroxide/Mg Hydroxide (Maalox) 15 ml PO Q4H PRN PRN Reason: Heartburn or Indigestion Albuterol/Ipratropium (Duoneb) 3 ml NEB [id number] [facility] Last Admin: 10/16/17 10:55 Dose: 3 ml Amlodipine Besylate (Norvasc) 5 mg PO DAILY [facility] Last Admin: 10/16/17 08:01 Dose: 5 mg Artificial Tears (Tears Naturale) 0 drop EA EYE PRN PRN PRN Reason: Dry Eyes Aspirin (Ecotrin) 325 mg PO DAILY [facility] Last Admin: 10/16/17 08:01 Dose: 325 mg Atorvastatin Calcium (Lipitor) 20 mg PO HS [facility] Last Admin: 10/15/17 20:58 Dose: 20 mg Bupropion HCl (Wellbutrin Sr) 150 mg PO BID [facility] Last Admin: 10/16/17 08:00 Dose: 150 mg Carvedilol (Coreg) 3.125 mg PO BID [facility] Last Admin: 10/16/17 07:59 Dose: 3.125 mg Clonidine (Catapres) 0.1 mg PO Q4H PRN PRN Reason: Systolic BP > 180 Guaifenesin (Mucinex) 600 mg PO Q12HR [facility] Last Admin: 10/16/17 08:00 Dose: 600 mg Guaifenesin (Robitussin Sf) 200 mg PO Q4H PRN PRN Reason: Cough Hydralazine HCl (Apresoline) 10 mg SLOW IVP Q4H PRN PRN Reason: Systolic BP > 180 Hydroxyzine HCl (Atarax) 25 mg PO TID PRN PRN Reason: Anxiety Cefepime HCl 2 gm/ Sodium (Chloride) 100 mls @ 200 mls/hr IVPB Q12HR [facility] Last Admin: 10/16/17 11:25 Dose: 100 mls Levofloxacin 500 mg/ Device 100 mls @ 100 mls/hr IVPB Q24HR [facility] Last Admin: 10/16/17 11:27 Dose: 100 mls Vancomycin HCl 1.5 gm/ Sodium (Chloride) 300 mls @ 200 mls/hr IVPB 1100,2300 [facility] Last Admin: 10/16/17 11:26 Dose: 300 mls Loperamide HCl (Imodium) 2 mg PO PRN PRN PRN Reason: Diarrhea/Loose Stools Loratadine (Claritin) 10 mg PO DAILYPRN PRN PRN Reason: Sinus Symptoms Magnesium Hydroxide (Milk Of Magnesium) 30 ml PO DAILYPRN PRN PRN Reason: Constipation Mineral Oil/White Petrolatum (Eucerin Cream) 0 gm TOP BIDPRN PRN PRN Reason: Dry Skin Miscellaneous Medication (Pharmacy To Dose) 0 each IVPB ASDIR [facility] Mometasone Furoate/Formoterol Fumar (Dulera 200 Mcg/5 Mcg Inhaler) 2 puff INH BID-RT [facility] Last Admin: 10/16/17 06:38 Dose: 2 puff Ondansetron HCl (Zofran Odt) 4 mg PO Q6H PRN PRN Reason: Nausea/Vomiting Ondansetron HCl (Zofran) 4 mg IVP Q6H PRN PRN Reason: Nausea/Vomiting Pantoprazole Sodium (Protonix) 40 mg PO DAILY [facility] Last Admin: 10/16/17 08:00 Dose: 40 mg Phenol (Chloraseptic [place] 180 Ml Bot) 0 ml PO PRN PRN PRN Reason: Sore Throat Pregabalin (Lyrica) 75 mg PO TID [facility] Last Admin: 10/16/17 11:27 Dose: Not Given Saccharomyces Boulardii (Florastor) 250 mg PO DAILY [facility] Last Admin: 10/16/17 08:00 Dose: 250 mg Senna (Senokot) 2 tab PO HSPRN PRN PRN Reason: Constipation Sodium Chloride ([place] Nasal [place] 0.65%) 0 ml EA NARE QIDPRN PRN PRN Reason: Nasal Congestion Temazepam (Restoril) 15 mg PO HSPRN PRN PRN Reason: Insomnia Tizanidine HCl (Zanaflex) 4 mg PO Q8H PRN PRN Reason: Muscle Spasm Last Admin: 10/16/17 05:36 Dose: 4 mg
[2017-10-16] MEDS ORDERED: Cyanocobalamin 1000 MCG/ML VIAL IM SCH (14:30)
--- NOTE | 2017-10-16 14:39 | PRG ---
DATE OF SERVICE: 10/16/2017 SERVICE: Pulmonary Medicine. INTERVAL HISTORY: The patient is doing fine from a respiratory standpoint. He denies any shortness of breath, chest pain, nausea, vomiting, fevers or chills. Otherwise, there has been no interval nicholas nge to his condition. We did an AFB smear, but the quantity was not sufficient for any accurate inte rpretation. As such, the sample was not analyzed. PHYSICAL EXAMINATION: VITAL SIGNS: Afebrile, pulse 58, blood pressure 124/77, respirations 18, saturation 95% on room air. GENERAL: The patient is awake, alert, in no apparent distress. LUNGS: Excellent air entry. There is no prolonged expiratory phase. Crackles are actually improved a little bit on the right. HEART: Normal rate, regular. ABDOMEN: Soft, nontender, nondistended. Bowel sounds are positive. MUSCULOSKELETAL: No cyanosis or clubbing. There is no pitting in the bilateral lower extremities. NEUROLOGIC: Grossly nonfocal. LABORATORY DATA: WBC 9.1, hemoglobin 12.1, platelets 103,000 and improving gently. Band count is 23 %. Basic metabolic profile and liver function studies are essentially unremarkable. AST and ALT are down trending. Folate is low at 4.0, B12 is also at the lower limits of normal. Urinalysis is unre markable with no red blood cells. Hepatitis C is positive. Hepatitis B and A are both unremarkable. Blood cultures are growing coag negative Staph in one out of two. Urine cultures negative. As pre viously noted, AFB was not analyzed. ASSESSMENT: 1. Pulmonary infiltrate. 2. Pancytopenia. 3. Folate deficiency. 4. Systemic inflammatory response syndrome, improving. 5. Chronic systolic heart failure with possible minimal volume overload. 6. Chronic obstructive pulmonary disease with no clear exacerbation. DISCUSSION AND PLAN: There are multiple serologies are currently pending including NEY, IgG4 level, anti-Jo1 antibodies. We are going to hold off on steroids for the time being. He could not generate an AFB sample. Dr. Dumont will assume care in the morning. Repeat imaging and bronchoscopy will b e considered at that time.
[2017-10-16] MEDS: Atorvastatin Calcium 20 MG TAB PO SCH (20:03)
[2017-10-16] MEDS: Temazepam 15 MG CAP PO PRN (23:41)
[2017-10-17] MEDS: HYDROcodone/Acetaminophen 5/325 mg Tablet PO PRN ×3 (06:16→22:15)
[2017-10-17] MEDS: Mometasone/Formoterol 120 PUFF INHALER INH SCH ×2 (07:01→19:58)
--- NOTE | 2017-10-17 08:50 | PRG ---
DATE OF SERVICE: 10/17/2017 Mr. Mcginnis says he feels much better than 2 days ago. He has not had any fever recorded since admissi on. PHYSICAL EXAMINATION: VITAL SIGNS: His temperature is 98.6, pulse 87, respirations 18, O2 sat 92% on room air, blood press ure 120/71. HEENT: Unremarkable. NECK: Without JVD. LUNGS: Fairly clear without any crackles that I can hear. CARDIAC: S1 and S2 regular. ABDOMEN: Soft, nontender. EXTREMITIES: No clubbing, cyanosis, or edema. LABORATORY: His laboratory profile was positive for hepatitis C. Cultures showed coag negative Stap h out of 1-2 bottles, AFB smear cannot rule out, will be performed. ASSESSMENT: 1. Atypical versus recurrent pneumonia. 2. New diagnosis of hepatitis C. RECOMMENDATIONS: As the patient is responding to antibiotics, my inclination would be to finish out a treatment regimen of 7-10 days. It does not appear that he needs steroids at this time. If he has recurrent symptoms from his pneumonitis, then he will need bronchoscopy with transbronchial biopsies . We are waiting the results of the aldolase, NEY IgG subclasses and Ashlee-1 IgG antibody. I suspect t his may take a week or so to come back.
[2017-10-17] MEDS: Amlodipine 5 MG TAB PO SCH (08:58)
[2017-10-17] MEDS: Bupropion 150 MG SR TAB PO SCH ×2 (08:58→22:14)
[2017-10-17] MEDS: Pregabalin 75 MG CAP PO SCH ×3 (08:59→22:15)
[2017-10-17] MEDS: Carvedilol 3.125 MG TAB PO SCH ×2 (08:59→22:14)
[2017-10-17] MEDS: Aspirin 325 mg Enteric Coated Tablet PO SCH (08:59)
[2017-10-17] MEDS: guaiFENesin ER 600 MG TAB PO SCH ×2 (08:59→22:15)
[2017-10-17] MEDS: Folic Acid 1 MG TAB PO SCH (08:59)
[2017-10-17] MEDS: Cyanocobalamin (Vitamin B-12) 1,000 MCG TAB PO SCH (08:59)
[2017-10-17] MEDS: Saccharomyces boulardii 250 MG CAP PO SCH (08:59)
[2017-10-17] MEDS: Cefepime 2 GM in Sodium Chloride 0.9% 100 ML IVPB SCH ×2 (09:45→22:14)
[2017-10-17] MEDS: Vancomycin HCl 1.5 GM in Sodium Chloride 0.9% 250 ML 300 ML IVPB SCH ×2 (11:45→22:30)
--- NOTE | 2017-10-17 12:19 | PDOC.PN ---
- Subjective Encounter Start Date: 10/17/17 Encounter Start Time: 07:45 Patient seen and examined. No new complaints. No overnight events - Objective MAR Reviewed: Yes Vital Signs & Weight: Vital Signs (12 hours) Temp Pulse Resp BP BP Pulse Ox 10/17/17 10:42 74 16 93 L 10/17/17 08:58 67 127/71 10/17/17 08:00 98.6 F 67 18 92 L 10/17/17 07:57 98.6 F 67 18 127/71 92 L 10/17/17 07:00 80 16 94 L Weight Weight 197 lb I&O: 10/16/17 10/17/17 10/18/17 06:59 06:59 06:59 Intake Total 1040 1040 Balance 1040 1040 Result Diagrams: 10/16/17 04:03 10/16/17 04:03 Phys Exam - Physical Examination Constitutional: NAD HEENT: PERRLA, moist MMs, sclera anicteric Neck: no JVD, supple, full ROM Respiratory: no wheezing, no rhonchi right side rales reducing Cardiovascular: RRR, no significant murmur, no rub Gastrointestinal: soft, non-tender, no distention, positive bowel sounds Musculoskeletal: no edema, pulses present Neurological: non-focal, normal sensation, moves all 4 limbs Lymphatic: no nodes Psychiatric: normal affect, A&O x 3 Skin: no rash, normal turgor Dx/Plan (1) Multifocal pneumonia Code(s): J18.9 - PNEUMONIA, UNSPECIFIED ORGANISM Status: Acute (2) Abnormal LFTs Code(s): R94.5 - ABNORMAL RESULTS OF LIVER FUNCTION STUDIES Status: Chronic (3) Lactic acidosis Code(s): E87.2 - ACIDOSIS Status: Resolved (4) Pancytopenia Code(s): D61.818 - OTHER PANCYTOPENIA Status: Acute (5) Anxiety disorder Code(s): F41.9 - ANXIETY DISORDER, UNSPECIFIED Status: Chronic Qualifiers: (6) CAD (coronary artery disease) Code(s): I25.10 - ATHSCL HEART DISEASE OF [place] CORONARY ARTERY W/O ANG PCTRS Status: Chronic Comment: (7) CKD (chronic kidney disease) stage 3, GFR 30-59 ml/min Code(s): N18.3 - CHRONIC KIDNEY DISEASE, STAGE 3 (MODERATE) Status: Chronic (8) Chronic back pain Code(s): M54.9 - DORSALGIA, UNSPECIFIED; G89.29 - OTHER CHRONIC PAIN Status: Chronic Comment: (9) GERD (gastroesophageal reflux disease) Code(s): K21.9 - GASTRO-ESOPHAGEAL REFLUX DISEASE WITHOUT ESOPHAGITIS Status: Chronic (10) Hyperlipidemia Code(s): E78.5 - HYPERLIPIDEMIA, UNSPECIFIED Status: Chronic Qualifiers: Comment: (11) Hypertension Code(s): I10 - ESSENTIAL (PRIMARY) HYPERTENSION Status: Chronic Qualifiers: (12) COPD (chronic obstructive pulmonary disease) Status: Chronic (13) Chronic hepatitis C Code(s): B18.2 - CHRONIC VIRAL HEPATITIS C Status: Chronic - Plan cont current plan of care, continue antibiotics, respiratory therapy * continue current iv antibiotics * follow up on send out test result * medication reviewed as below * symptomatic treatment * if no improvement, then seems like bronchoscopy with biopsy can be planned outpt. Review of Systems - Review of Systems Constitutional: negative: fever, chills, sweats, weakness, malaise, other Eyes: negative: Pain, Vision Change, Conjunctivae Inflammation, Eyelid Inflammation, Redness, Other ENT: negative: Ear Pain, Ear Discharge, Nose Pain, Nose Discharge, Nose Congestion, Mouth Pain, Mouth Swelling, Throat Pain, Throat Swelling, Other Respiratory: Cough. negative: Dry, Shortness of Breath, Hemoptysis, SOB with Excertion, Pleuritic Pain, Sputum, Wheezing Cardiovascular: negative: chest pain, palpitations, orthopnea, paroxysmal nocturnal dyspnea, edema, light headedness, other Gastrointestinal: negative: Nausea, Vomiting, Abdominal Pain, Diarrhea, Constipation, Melena, Hematochezia, Other Genitourinary: negative: Dysuria, Frequency, Incontinence, Hematuria, Retention , Other Musculoskeletal: negative: Neck Pain, Shoulder Pain, Arm Pain, Back Pain, Hand Pain, Leg Pain, Foot Pain, Other Skin: negative: Rash, Lesions, Mannie, Bruising, Other - Medications/Allergies Allergies/Adverse Reactions: Allergies Allergy/AdvReac Type Severity Reaction Status Date / Time Sulfa (Sulfonamide Allergy Verified 11/21/13 19:18 Antibiotics) Medications: Current Medications Acetaminophen (Tylenol) 650 mg PO Q4H PRN PRN Reason: Headache/Fever or Mild Pain Hydrocodone Bitart/Acetaminophen ([place] 5/325) 1 tab PO Q6H PRN PRN Reason: Pain 4-6 Hydrocodone Bitart/Acetaminophen ([place] 5/325) 2 tab PO Q6H PRN PRN Reason: Pain 7-10 Last Admin: 10/17/17 06:16 Dose: 2 tab Hydrocodone Bitart/Acetaminophen ([place] 5/325) 1 tab PO Q4H PRN PRN Reason: Moderate Pain (4-6) Al Hydroxide/Mg Hydroxide (Maalox) 15 ml PO Q4H PRN PRN Reason: Heartburn or Indigestion Albuterol/Ipratropium (Duoneb) 3 ml NEB [id number] [facility] Last Admin: 10/17/17 10:42 Dose: 3 ml Amlodipine Besylate (Norvasc) 5 mg PO DAILY [facility] Last Admin: 10/17/17 08:58 Dose: 5 mg Artificial Tears (Tears Naturale) 0 drop EA EYE PRN PRN PRN Reason: Dry Eyes Aspirin (Ecotrin) 325 mg PO DAILY [facility] Last Admin: 10/17/17 08:59 Dose: 325 mg Atorvastatin Calcium (Lipitor) 20 mg PO HS [facility] Last Admin: 10/16/17 20:03 Dose: 20 mg Bupropion HCl (Wellbutrin Sr) 150 mg PO BID [facility] Last Admin: 10/17/17 08:58 Dose: 150 mg Carvedilol (Coreg) 3.125 mg PO BID [facility] Last Admin: 10/17/17 08:59 Dose: 3.125 mg Clonidine (Catapres) 0.1 mg PO Q4H PRN PRN Reason: Systolic BP > 180 Cyanocobalamin (Vitamin B-12) 1,000 mcg PO DAILY [facility] Last Admin: 10/17/17 08:59 Dose: 1,000 mcg Folic Acid (Folvite) 1 mg PO DAILY [facility] Last Admin: 10/17/17 08:59 Dose: 1 mg Guaifenesin (Mucinex) 600 mg PO Q12HR [facility] Last Admin: 10/17/17 08:59 Dose: 600 mg Guaifenesin (Robitussin Sf) 200 mg PO Q4H PRN PRN Reason: Cough Hydralazine HCl (Apresoline) 10 mg SLOW IVP Q4H PRN PRN Reason: Systolic BP > 180 Hydroxyzine HCl (Atarax) 25 mg PO TID PRN PRN Reason: Anxiety Last Admin: 10/17/17 01:24 Dose: 25 mg Cefepime HCl 2 gm/ Sodium (Chloride) 100 mls @ 200 mls/hr IVPB Q12HR [facility] Last Admin: 10/17/17 09:45 Dose: 100 mls Levofloxacin 500 mg/ Device 100 mls @ 100 mls/hr IVPB Q24HR [facility] Last Admin: 10/16/17 11:27 Dose: 100 mls Vancomycin HCl 1.5 gm/ Sodium (Chloride) 300 mls @ 200 mls/hr IVPB 1100,2300 [facility] Last Admin: 10/17/17 11:45 Dose: 300 mls Loperamide HCl (Imodium) 2 mg PO PRN PRN PRN Reason: Diarrhea/Loose Stools Loratadine (Claritin) 10 mg PO DAILYPRN PRN PRN Reason: Sinus Symptoms Magnesium Hydroxide (Milk Of Magnesium) 30 ml PO DAILYPRN PRN PRN Reason: Constipation Mineral Oil/White Petrolatum (Eucerin Cream) 0 gm TOP BIDPRN PRN PRN Reason: Dry Skin Miscellaneous Medication (Pharmacy To Dose) 0 each IVPB ASDIR [facility] Mometasone Furoate/Formoterol Fumar (Dulera 200 Mcg/5 Mcg Inhaler) 2 puff INH BID-RT [facility] Last Admin: 10/17/17 07:01 Dose: 2 puff Ondansetron HCl (Zofran Odt) 4 mg PO Q6H PRN PRN Reason: Nausea/Vomiting Ondansetron HCl (Zofran) 4 mg IVP Q6H PRN PRN Reason: Nausea/Vomiting Pantoprazole Sodium (Protonix) 40 mg PO DAILY [facility] Last Admin: 10/17/17 08:59 Dose: 40 mg Phenol (Chloraseptic [place] 180 Ml Bot) 0 ml PO PRN PRN PRN Reason: Sore Throat Pregabalin (Lyrica) 75 mg PO TID [facility] Last Admin: 10/17/17 08:59 Dose: 75 mg Saccharomyces Boulardii (Florastor) 250 mg PO DAILY [facility] Last Admin: 10/17/17 08:59 Dose: 250 mg Senna (Senokot) 2 tab PO HSPRN PRN PRN Reason: Constipation Sodium Chloride ([place] Nasal [place] 0.65%) 0 ml EA NARE QIDPRN PRN PRN Reason: Nasal Congestion Temazepam (Restoril) 15 mg PO HSPRN PRN PRN Reason: Insomnia Last Admin: 10/16/17 23:41 Dose: 15 mg Tizanidine HCl (Zanaflex) 4 mg PO Q8H PRN PRN Reason: Muscle Spasm Last Admin: 10/16/17 23:41 Dose: 4 mg
[2017-10-17] MEDS: Ondansetron HCl/PF 4 MG/2 ML Vial IVP PRN (16:26)
[2017-10-17] MEDS: tiZANidine HCl 4 MG TAB PO PRN (22:14)
[2017-10-17] MEDS: Atorvastatin Calcium 20 MG TAB PO SCH (22:14)
[2017-10-17 22:22] LABS: Vancomycin, Trough 14.2 ug/mL
[2017-10-18] MEDS: Temazepam 15 MG CAP PO PRN ×2 (01:43→21:26)
[2017-10-18] MEDS: Mometasone/Formoterol 120 PUFF INHALER INH SCH ×2 (06:26→19:08)
--- NOTE | 2017-10-18 08:29 | PRG ---
DATE OF SERVICE: 10/18/2017 The patient says that he is feeling better than 2 days before. He is having some sweats at night. PHYSICAL EXAMINATION: VITAL SIGNS: His temperature is 98.0 without fever. Pulse 72, respirations 16, O2 sat 92-97% on beth m air, blood pressure 113/69. HEENT: Unremarkable. NECK: No adenopathy, JVD, or bruits. LUNGS: Fairly clear without wheezing or rhonchi. CARDIAC: S1 and S2 regular. ABDOMEN: Soft. EXTREMITIES: No edema. His IgG subclasses were normal. No new labs were obtained today otherwise. ASSESSMENT: 1. Bilateral atypical pneumonia. 2. New diagnosis of hepatitis C. PLAN: 1. Awaiting the results of the aldolase NEY and anti-Ashlee-IgG antibody. 2. Continue the current IV antibiotics, which include cefepime, vancomycin and Levaquin. 3. Recheck labs tomorrow.
[2017-10-18] MEDS: Carvedilol 3.125 MG TAB PO SCH ×2 (08:36→21:24)
[2017-10-18] MEDS: Saccharomyces boulardii 250 MG CAP PO SCH (08:36)
[2017-10-18] MEDS: Pregabalin 75 MG CAP PO SCH ×3 (08:36→21:25)
[2017-10-18] MEDS: Folic Acid 1 MG TAB PO SCH (08:36)
[2017-10-18] MEDS: HYDROcodone/Acetaminophen 5/325 mg Tablet PO PRN ×3 (08:37→21:24)
[2017-10-18] MEDS: Bupropion 150 MG SR TAB PO SCH ×2 (08:37→21:24)
[2017-10-18] MEDS: Amlodipine 5 MG TAB PO SCH (08:37)
[2017-10-18] MEDS: guaiFENesin ER 600 MG TAB PO SCH ×2 (08:38→21:24)
[2017-10-18] MEDS: Aspirin 325 mg Enteric Coated Tablet PO SCH (08:38)
[2017-10-18] MEDS: Cyanocobalamin (Vitamin B-12) 1,000 MCG TAB PO SCH (08:38)
[2017-10-18] MEDS: Cefepime 2 GM in Sodium Chloride 0.9% 100 ML IVPB SCH ×2 (09:26→21:26)
[2017-10-18] MEDS: Vancomycin HCl 1.75 GM in Sodium Chloride 0.9% 500 ML IVPB SCH ×2 (11:22→22:31)
[2017-10-18] MEDS: Ondansetron HCl/PF 4 MG/2 ML Vial IVP PRN (11:30)
[2017-10-18 12:17] LABS: HCV I.Units 11100000 IU/mL (.); HCV I.Units log10 7.045 (.); Hep C PCR-Quant See Final Results IU/mL (.)
--- NOTE | 2017-10-18 12:40 | PDOC.PN ---
- Subjective Encounter Start Date: 10/18/17 Encounter Start Time: 08:15 Patient seen and examined. No new complaints. No overnight events pt has cough, no fever - Objective MAR Reviewed: Yes Vital Signs & Weight: Vital Signs (12 hours) Temp Pulse Resp BP BP Pulse Ox 10/18/17 10:37 72 20 92 L 10/18/17 08:37 72 113/69 10/18/17 07:27 98.0 F 72 16 113/69 92 L 10/18/17 06:24 85 16 97 Weight Weight 197 lb I&O: 10/17/17 10/18/17 10/19/17 06:59 06:59 06:59 Intake Total 1040 2430 Balance 1040 2430 Result Diagrams: 10/16/17 04:03 10/16/17 04:03 Phys Exam - Physical Examination Constitutional: NAD HEENT: PERRLA, moist MMs, sclera anicteric Neck: no JVD, supple Respiratory: no wheezing, no rhonchi few right side rales Cardiovascular: RRR, no significant murmur, no rub Gastrointestinal: soft, non-tender, no distention, positive bowel sounds Musculoskeletal: no edema, pulses present Neurological: non-focal, normal sensation, moves all 4 limbs Psychiatric: normal affect, A&O x 3 Skin: no rash, normal turgor Dx/Plan (1) Multifocal pneumonia Code(s): J18.9 - PNEUMONIA, UNSPECIFIED ORGANISM Status: Acute (2) Abnormal LFTs Code(s): R94.5 - ABNORMAL RESULTS OF LIVER FUNCTION STUDIES Status: Chronic (3) Lactic acidosis Code(s): E87.2 - ACIDOSIS Status: Resolved (4) Pancytopenia Code(s): D61.818 - OTHER PANCYTOPENIA Status: Acute (5) Anxiety disorder Code(s): F41.9 - ANXIETY DISORDER, UNSPECIFIED Status: Chronic Qualifiers: (6) CAD (coronary artery disease) Code(s): I25.10 - ATHSCL HEART DISEASE OF [place] CORONARY ARTERY W/O ANG PCTRS Status: Chronic Comment: (7) CKD (chronic kidney disease) stage 3, GFR 30-59 ml/min Code(s): N18.3 - CHRONIC KIDNEY DISEASE, STAGE 3 (MODERATE) Status: Chronic (8) Chronic back pain Code(s): M54.9 - DORSALGIA, UNSPECIFIED; G89.29 - OTHER CHRONIC PAIN Status: Chronic Comment: (9) GERD (gastroesophageal reflux disease) Code(s): K21.9 - GASTRO-ESOPHAGEAL REFLUX DISEASE WITHOUT ESOPHAGITIS Status: Chronic (10) Hyperlipidemia Code(s): E78.5 - HYPERLIPIDEMIA, UNSPECIFIED Status: Chronic Qualifiers: Comment: (11) Hypertension Code(s): I10 - ESSENTIAL (PRIMARY) HYPERTENSION Status: Chronic Qualifiers: (12) COPD (chronic obstructive pulmonary disease) Status: Chronic (13) Chronic hepatitis C Code(s): B18.2 - CHRONIC VIRAL HEPATITIS C Status: Chronic - Plan cont current plan of care, continue antibiotics, respiratory therapy * continue cefepime, levaquin and vancomycin * pulmonary following * will change to oral antibiotic when pulmonary ok * may need outpt bronchoscopy as an outpt if pneumonia does not resolve. * medication reviewed as below * symptomatic treatment * pt is advised to get outpt GI follow up for hepatitis C treatment Review of Systems - Review of Systems Constitutional: negative: fever, chills, sweats, weakness, malaise, other Eyes: negative: Pain, Vision Change, Conjunctivae Inflammation, Eyelid Inflammation, Redness, Other ENT: negative: Ear Pain, Ear Discharge, Nose Pain, Nose Discharge, Nose Congestion, Mouth Pain, Mouth Swelling, Throat Pain, Throat Swelling, Other Respiratory: Cough. negative: Dry, Shortness of Breath, Hemoptysis, SOB with Excertion, Pleuritic Pain, Sputum, Wheezing Cardiovascular: negative: chest pain, palpitations, orthopnea, paroxysmal nocturnal dyspnea, edema, light headedness, other Gastrointestinal: negative: Nausea, Vomiting, Abdominal Pain, Diarrhea, Constipation, Melena, Hematochezia, Other Genitourinary: negative: Dysuria, Frequency, Incontinence, Hematuria, Retention , Other Musculoskeletal: negative: Neck Pain, Shoulder Pain, Arm Pain, Back Pain, Hand Pain, Leg Pain, Foot Pain, Other Skin: negative: Rash, Lesions, Mannie, Bruising, Other - Medications/Allergies Allergies/Adverse Reactions: Allergies Allergy/AdvReac Type Severity Reaction Status Date / Time Sulfa (Sulfonamide Allergy Verified 11/21/13 19:18 Antibiotics) Medications: Current Medications Acetaminophen (Tylenol) 650 mg PO Q4H PRN PRN Reason: Headache/Fever or Mild Pain Hydrocodone Bitart/Acetaminophen ([place] 5/325) 2 tab PO Q6H PRN PRN Reason: Pain 7-10 Last Admin: 10/18/17 08:37 Dose: 2 tab Hydrocodone Bitart/Acetaminophen ([place] 5/325) 1 tab PO Q4H PRN PRN Reason: Moderate Pain (4-6) Al Hydroxide/Mg Hydroxide (Maalox) 15 ml PO Q4H PRN PRN Reason: Heartburn or Indigestion Albuterol/Ipratropium (Duoneb) 3 ml NEB [id number] [facility] Last Admin: 10/18/17 10:37 Dose: 3 ml Amlodipine Besylate (Norvasc) 5 mg PO DAILY [facility] Last Admin: 10/18/17 08:37 Dose: 5 mg Artificial Tears (Tears Naturale) 0 drop EA EYE PRN PRN PRN Reason: Dry Eyes Aspirin (Ecotrin) 325 mg PO DAILY [facility] Last Admin: 10/18/17 08:38 Dose: 325 mg Atorvastatin Calcium (Lipitor) 20 mg PO HS [facility] Last Admin: 10/17/17 22:14 Dose: 20 mg Bupropion HCl (Wellbutrin Sr) 150 mg PO BID [facility] Last Admin: 10/18/17 08:37 Dose: 150 mg Carvedilol (Coreg) 3.125 mg PO BID [facility] Last Admin: 10/18/17 08:36 Dose: 3.125 mg Clonidine (Catapres) 0.1 mg PO Q4H PRN PRN Reason: Systolic BP > 180 Cyanocobalamin (Vitamin B-12) 1,000 mcg PO DAILY [facility] Last Admin: 10/18/17 08:38 Dose: 1,000 mcg Folic Acid (Folvite) 1 mg PO DAILY [facility] Last Admin: 10/18/17 08:36 Dose: 1 mg Guaifenesin (Mucinex) 600 mg PO Q12HR [facility] Last Admin: 10/18/17 08:38 Dose: 600 mg Guaifenesin (Robitussin Sf) 200 mg PO Q4H PRN PRN Reason: Cough Hydralazine HCl (Apresoline) 10 mg SLOW IVP Q4H PRN PRN Reason: Systolic BP > 180 Hydroxyzine HCl (Atarax) 25 mg PO TID PRN PRN Reason: Anxiety Last Admin: 10/17/17 01:24 Dose: 25 mg Cefepime HCl 2 gm/ Sodium (Chloride) 100 mls @ 200 mls/hr IVPB Q12HR [facility] Last Admin: 10/18/17 09:26 Dose: 100 mls Levofloxacin 500 mg/ Device 100 mls @ 100 mls/hr IVPB Q24HR [facility] Last Admin: 10/17/17 16:25 Dose: 100 mls Vancomycin HCl 1.75 gm/ Sodium (Chloride) 500 mls @ 250 mls/hr IVPB 1100,2300 [facility] Last Admin: 10/18/17 11:22 Dose: 500 mls Loperamide HCl (Imodium) 2 mg PO PRN PRN PRN Reason: Diarrhea/Loose Stools Loratadine (Claritin) 10 mg PO DAILYPRN PRN PRN Reason: Sinus Symptoms Magnesium Hydroxide (Milk Of Magnesium) 30 ml PO DAILYPRN PRN PRN Reason: Constipation Mineral Oil/White Petrolatum (Eucerin Cream) 0 gm TOP BIDPRN PRN PRN Reason: Dry Skin Miscellaneous Medication (Pharmacy To Dose) 0 each IVPB ASDIR [facility] Mometasone Furoate/Formoterol Fumar (Dulera 200 Mcg/5 Mcg Inhaler) 2 puff INH BID-RT [facility] Last Admin: 10/18/17 06:26 Dose: 2 puff Ondansetron HCl (Zofran Odt) 4 mg PO Q6H PRN PRN Reason: Nausea/Vomiting Ondansetron HCl (Zofran) 4 mg IVP Q6H PRN PRN Reason: Nausea/Vomiting Last Admin: 10/18/17 11:30 Dose: 4 mg Pantoprazole Sodium (Protonix) 40 mg PO DAILY [facility] Last Admin: 10/18/17 08:38 Dose: 40 mg Phenol (Chloraseptic [place] 180 Ml Bot) 0 ml PO PRN PRN PRN Reason: Sore Throat Pregabalin (Lyrica) 75 mg PO TID [facility] Last Admin: 10/18/17 08:36 Dose: 75 mg Saccharomyces Boulardii (Florastor) 250 mg PO DAILY [facility] Last Admin: 10/18/17 08:36 Dose: 250 mg Senna (Senokot) 2 tab PO HSPRN PRN PRN Reason: Constipation Sodium Chloride ([place] Nasal [place] 0.65%) 0 ml EA NARE QIDPRN PRN PRN Reason: Nasal Congestion Temazepam (Restoril) 15 mg PO HSPRN PRN PRN Reason: Insomnia Last Admin: 10/18/17 01:43 Dose: 15 mg Tizanidine HCl (Zanaflex) 4 mg PO Q8H PRN PRN Reason: Muscle Spasm Last Admin: 10/17/17 22:14 Dose: 4 mg
--- NOTE | 2017-10-18 14:23 | PQF ---
CLINICAL DOCUMENTATION IMPROVEMENT CLARIFICATION FORM: ICD-10 Updated PLEASE DO AN ADDENDUM TO THE PROGRESS NOTE WITH ANY DOCUMENTATION UPDATES OR ADDITIONS AND CARRY THROUGH TO DC SUMMARY. THANK YOU. DATE: 10/18/17 ATTN: Dr. Barrera Please exercise your independent, professional judgment in responding to the clarification form. Clinical indicators are provided on the bottom of this form for your review Please check appropriate box(es): [ x ] Sepsis due to: _non resolving pneumonia [ ] SIRS due to non-infectious process (please specify etiology) ____ [ ] with organ dysfunction [ ] without organ dysfunction [ ] Severe sepsis with acute organ dysfunction of: __ [ ] Localized infection without sepsis [ ] Other diagnosis [ ] Unable to determine In addition, please specify: Present on Admission (POA): [x ] Yes [ ] No [ ] Unable to determine For continuity of documentation, please document condition throughout progress notes and discharge summary. Thank You. CLINICAL INDICATORS - SIGNS / SYMPTOMS / LABS ER RECORD: REPORTS FEVER, MEASURED TEMPERATURE OF 101 VS: BP 90/52, PULSE 79, RESP 24-28, O2 SAT 87 ON RA DX: PNEUMONIA. SEPSIS H&P 10/14: WHITE COUNT 3.8 LACTIC ACID 2.4 PULMONOLOGY PN 10/16: BLOOD CULTURES GROWING COAG NEGATIVE STAPH IN 1 OUT OF 2. SYSTEMIC INFLAMMATORY RESPONSE SYNDROME , IMPROVING RISKS: H&P 10/14: RECENTLY ADMITTED W/ BILATERAL PNEUMONIA. APPEARED TO BE A FAIRLY ATYPICAL-TYPE PNEUMONIA. COPD. HX CAD, HTN. PULMONOLOGY PN 10/17: NEW DIAGNOSIS OF HEPATITIS C. TREATMENT: PN 10/18: CONTINUE CEFEPIME, LEVAQUIN & VANCOMYCIN Thank you, Shannen (This form is maintained as a part of the permanent medical record) 2014 [employer] All Rights Reserved Shannen Barreto RN, BSN [email or web address] Office: [phone] [facility]
[2017-10-18] MEDS: Atorvastatin Calcium 20 MG TAB PO SCH (21:24)
[2017-10-19] MEDS: HYDROcodone/Acetaminophen 5/325 mg Tablet PO PRN ×4 (03:15→22:26)
[2017-10-19 05:06] LABS: ALT (SGPT) 58 U/L (8-55); AST (SGOT) 56 U/L (5-34); Albumin 3.2 g/dL (3.4-4.8); Alkaline Phosphatase 69 U/L (40-150); Anion Gap 14 mmol/L (10-20); BUN (Urea Nitrogen) 12 mg/dL (8.4-25.7); Bilirubin, Total 0.5 mg/dL (0.2-1.2); Calc. Creatinine Clearance 115 mL/min (70-130); Calcium 8.3 mg/dL (7.8-10.44); Carbon Dioxide 23 mmol/L (23-31); Chloride 105 mmol/L (98-107); Estimated GFR-MDRD Greater than 90; Globulin 3.5 g/dL (2.4-3.5); Glucose 119 mg/dL (80-115); Potassium 3.3 mmol/L (3.5-5.1); Protein, Total 6.7 g/dL (5.8-8.1); Sodium 139 mmol/L (136-145)
[2017-10-19 05:12] LABS: Band 5 % (5-11); Eosinophils 2 % (0-10); Hemoglobin 13.5 g/dL (14.0-18.0); Lymphocytes 29 % (21-51); MDiff Complete? YES; Mean Corpuscular Hemoglobin 33.3 pg (27.0-31.0); Mean Corpuscular Volume 95.3 fL (78.0-98.0); Monocytes 12 % (0-10); Myelocyte 1 % (0-0); Neutrophil 50 % (42-75); Platelet Count 154 thou/uL (130-400); RBC Distribution Width 11.9 % (11.5-14.5); Reactive Lymphocytes 1 % (0-10); Red Blood Cell (RBC) Count 4.04 mill/uL (4.70-6.10); White Blood Cell (WBC) Count 5.5 thou/uL (4.8-10.8)
[2017-10-19] MEDS: Mometasone/Formoterol 120 PUFF INHALER INH SCH ×2 (06:23→19:10)
[2017-10-19] MEDS: Aspirin 325 mg Enteric Coated Tablet PO SCH (07:53)
[2017-10-19] MEDS: Amlodipine 5 MG TAB PO SCH (07:53)
[2017-10-19] MEDS: Bupropion 150 MG SR TAB PO SCH ×2 (07:53→20:46)
[2017-10-19] MEDS: guaiFENesin ER 600 MG TAB PO SCH ×2 (07:53→20:46)
[2017-10-19] MEDS: Cefepime 2 GM in Sodium Chloride 0.9% 100 ML IVPB SCH ×2 (07:53→20:46)
[2017-10-19] MEDS: Carvedilol 3.125 MG TAB PO SCH ×2 (07:53→20:46)
[2017-10-19] MEDS: Cyanocobalamin (Vitamin B-12) 1,000 MCG TAB PO SCH (07:54)
[2017-10-19] MEDS: Saccharomyces boulardii 250 MG CAP PO SCH (07:54)
[2017-10-19] MEDS: Folic Acid 1 MG TAB PO SCH (07:54)
[2017-10-19] MEDS: Pregabalin 75 MG CAP PO SCH ×3 (07:55→20:45)
--- NOTE | 2017-10-19 08:20 | PRG ---
DATE OF SERVICE: 10/19/2017 He says he feels better today. He had no acute complaints. PHYSICAL EXAMINATION: VITAL SIGNS: Temperature 97.9, pulse 80, respirations 16, O2 sat ranged between 90-94% on room air, blood pressure 114/75. HEENT: Unremarkable. NECK: Without adenopathy or JVD. LUNGS: Clear without wheezing or rhonchi. CARDIAC: S1 and S2 regular. ABDOMEN: Soft. EXTREMITIES: No edema. LABORATORY DATA: White blood cell count 5.5, hematocrit 38.5, platelet count 154 with 50% neutrophils, 5% bands. Sodium 139, potassium 3.3, chloride 105, CO2 23, BUN 12, creatinine 0.8, glucose 119, aldolase level is 13.3. His hepatitis C PCR level is extremely high. ASSESSMENT: 1. Bilateral atypical pneumonia which is responding to antibiotics given decreased bandemia and improvement in patient's symptoms. 2. New diagnosis of hepatitis C. RECOMMENDATION: I would continue the IV antibiotics. Unfortunately, it is not clear what the organism is, so I would continue with the Levaquin, vancomycin and cefepime for a full 5 days IV before converting to p.o. medication. It does not look like bronchoscopy would be useful at this time. The only reason I would do that is if he has a setback. If bronchoscopy is needed, he would need to be off antibiotics 48 hours before the bronchoscopy to avoid contamination of any bronchoalveolar lavage. I do not think this is an autoimmune phenomenon, but hypersensitivity pneumonitis cannot be fully excluded. He gives no history of exposure, but frequently cause of this cannot be found. LALA
[2017-10-19 10:43] LABS: Vancomycin, Trough 17.6 ug/mL
[2017-10-19] MEDS: Vancomycin HCl 1.75 GM in Sodium Chloride 0.9% 500 ML IVPB SCH ×2 (11:17→22:22)
--- NOTE | 2017-10-19 12:19 | PDOC.PN ---
- Subjective Encounter Start Date: 10/19/17 Encounter Start Time: 08:40 Patient seen and examined. No new complaints. No overnight events - Objective MAR Reviewed: Yes Vital Signs & Weight: Vital Signs (12 hours) Temp Pulse Resp BP Pulse Ox 10/19/17 10:43 72 20 96 10/19/17 08:00 98.0 F 61 20 135/80 95 10/19/17 07:53 80 10/19/17 06:26 90 L Weight Weight 197 lb I&O: 10/18/17 10/19/17 10/20/17 06:59 06:59 06:59 Intake Total 2430 1280 Balance 2430 1280 Result Diagrams: 10/19/17 04:13 10/19/17 04:13 Phys Exam - Physical Examination Constitutional: NAD HEENT: PERRLA, moist MMs, sclera anicteric Neck: no JVD, supple Respiratory: no wheezing, no rales, no rhonchi Cardiovascular: RRR, no significant murmur, no rub Gastrointestinal: soft, non-tender, no distention, positive bowel sounds Musculoskeletal: no edema, pulses present Neurological: non-focal, normal sensation, moves all 4 limbs Lymphatic: no nodes Psychiatric: normal affect, A&O x 3 Skin: no rash, normal turgor Dx/Plan (1) Multifocal pneumonia Code(s): J18.9 - PNEUMONIA, UNSPECIFIED ORGANISM Status: Acute (2) Abnormal LFTs Code(s): R94.5 - ABNORMAL RESULTS OF LIVER FUNCTION STUDIES Status: Chronic (3) Lactic acidosis Code(s): E87.2 - ACIDOSIS Status: Resolved (4) Pancytopenia Code(s): D61.818 - OTHER PANCYTOPENIA Status: Acute (5) Anxiety disorder Code(s): F41.9 - ANXIETY DISORDER, UNSPECIFIED Status: Chronic Qualifiers: (6) CAD (coronary artery disease) Code(s): I25.10 - ATHSCL HEART DISEASE OF [place] CORONARY ARTERY W/O ANG PCTRS Status: Chronic Comment: (7) CKD (chronic kidney disease) stage 3, GFR 30-59 ml/min Code(s): N18.3 - CHRONIC KIDNEY DISEASE, STAGE 3 (MODERATE) Status: Chronic (8) Chronic back pain Code(s): M54.9 - DORSALGIA, UNSPECIFIED; G89.29 - OTHER CHRONIC PAIN Status: Chronic Comment: (9) GERD (gastroesophageal reflux disease) Code(s): K21.9 - GASTRO-ESOPHAGEAL REFLUX DISEASE WITHOUT ESOPHAGITIS Status: Chronic (10) Hyperlipidemia Code(s): E78.5 - HYPERLIPIDEMIA, UNSPECIFIED Status: Chronic Qualifiers: Comment: (11) Hypertension Code(s): I10 - ESSENTIAL (PRIMARY) HYPERTENSION Status: Chronic Qualifiers: (12) COPD (chronic obstructive pulmonary disease) Status: Chronic (13) Chronic hepatitis C Code(s): B18.2 - CHRONIC VIRAL HEPATITIS C Status: Chronic - Plan cont current plan of care, continue antibiotics * As per pulmonary continue IV antibiotics as ordered * when antibiotics changed to PO, at that point he should be ok to discharge and outpt follow up with bronchoscopy if needed * medication reviewed as below * symptomatic treatment. Review of Systems - Review of Systems Eyes: negative: Pain, Vision Change, Conjunctivae Inflammation, Eyelid Inflammation, Redness, Other ENT: negative: Ear Pain, Ear Discharge, Nose Pain, Nose Discharge, Nose Congestion, Mouth Pain, Mouth Swelling, Throat Pain, Throat Swelling, Other Respiratory: negative: Cough, Dry, Shortness of Breath, Hemoptysis, SOB with Excertion, Pleuritic Pain, Sputum, Wheezing Cardiovascular: negative: chest pain, palpitations, orthopnea, paroxysmal nocturnal dyspnea, edema, light headedness, other Gastrointestinal: negative: Nausea, Vomiting, Abdominal Pain, Diarrhea, Constipation, Melena, Hematochezia, Other Genitourinary: negative: Dysuria, Frequency, Incontinence, Hematuria, Retention , Other Musculoskeletal: negative: Neck Pain, Shoulder Pain, Arm Pain, Back Pain, Hand Pain, Leg Pain, Foot Pain, Other Skin: negative: Rash, Lesions, Mannie, Bruising, Other - Medications/Allergies Allergies/Adverse Reactions: Allergies Allergy/AdvReac Type Severity Reaction Status Date / Time Sulfa (Sulfonamide Allergy Verified 11/21/13 19:18 Antibiotics) Medications: Current Medications Acetaminophen (Tylenol) 650 mg PO Q4H PRN PRN Reason: Headache/Fever or Mild Pain Hydrocodone Bitart/Acetaminophen ([place] 5/325) 2 tab PO Q6H PRN PRN Reason: Pain 7-10 Last Admin: 10/19/17 08:43 Dose: 2 tab Hydrocodone Bitart/Acetaminophen ([place] 5/325) 1 tab PO Q4H PRN PRN Reason: Moderate Pain (4-6) Al Hydroxide/Mg Hydroxide (Maalox) 15 ml PO Q4H PRN PRN Reason: Heartburn or Indigestion Albuterol/Ipratropium (Duoneb) 3 ml NEB [id number] [facility] Last Admin: 10/19/17 10:43 Dose: 3 ml Amlodipine Besylate (Norvasc) 5 mg PO DAILY [facility] Last Admin: 10/19/17 07:53 Dose: 5 mg Artificial Tears (Tears Naturale) 0 drop EA EYE PRN PRN PRN Reason: Dry Eyes Aspirin (Ecotrin) 325 mg PO DAILY [facility] Last Admin: 10/19/17 07:53 Dose: 325 mg Atorvastatin Calcium (Lipitor) 20 mg PO HS [facility] Last Admin: 10/18/17 21:24 Dose: 20 mg Bupropion HCl (Wellbutrin Sr) 150 mg PO BID [facility] Last Admin: 10/19/17 07:53 Dose: 150 mg Carvedilol (Coreg) 3.125 mg PO BID [facility] Last Admin: 10/19/17 07:53 Dose: 3.125 mg Clonidine (Catapres) 0.1 mg PO Q4H PRN PRN Reason: Systolic BP > 180 Cyanocobalamin (Vitamin B-12) 1,000 mcg PO DAILY [facility] Last Admin: 10/19/17 07:54 Dose: 1,000 mcg Folic Acid (Folvite) 1 mg PO DAILY [facility] Last Admin: 10/19/17 07:54 Dose: 1 mg Guaifenesin (Mucinex) 600 mg PO Q12HR [facility] Last Admin: 10/19/17 07:53 Dose: 600 mg Guaifenesin (Robitussin Sf) 200 mg PO Q4H PRN PRN Reason: Cough Hydralazine HCl (Apresoline) 10 mg SLOW IVP Q4H PRN PRN Reason: Systolic BP > 180 Hydroxyzine HCl (Atarax) 25 mg PO TID PRN PRN Reason: Anxiety Last Admin: 10/17/17 01:24 Dose: 25 mg Cefepime HCl 2 gm/ Sodium (Chloride) 100 mls @ 200 mls/hr IVPB Q12HR [facility] Last Admin: 10/19/17 07:53 Dose: 100 mls Levofloxacin 500 mg/ Device 100 mls @ 100 mls/hr IVPB Q24HR [facility] Last Admin: 10/18/17 17:08 Dose: 100 mls Vancomycin HCl 1.75 gm/ Sodium (Chloride) 500 mls @ 250 mls/hr IVPB 1100,2300 [facility] Last Admin: 10/19/17 11:17 Dose: 500 mls Loperamide HCl (Imodium) 2 mg PO PRN PRN PRN Reason: Diarrhea/Loose Stools Loratadine (Claritin) 10 mg PO DAILYPRN PRN PRN Reason: Sinus Symptoms Magnesium Hydroxide (Milk Of Magnesium) 30 ml PO DAILYPRN PRN PRN Reason: Constipation Mineral Oil/White Petrolatum (Eucerin Cream) 0 gm TOP BIDPRN PRN PRN Reason: Dry Skin Miscellaneous Medication (Pharmacy To Dose) 0 each IVPB ASDIR [facility] Mometasone Furoate/Formoterol Fumar (Dulera 200 Mcg/5 Mcg Inhaler) 2 puff INH BID-RT [facility] Last Admin: 10/19/17 06:23 Dose: Not Given Ondansetron HCl (Zofran Odt) 4 mg PO Q6H PRN PRN Reason: Nausea/Vomiting Ondansetron HCl (Zofran) 4 mg IVP Q6H PRN PRN Reason: Nausea/Vomiting Last Admin: 10/18/17 11:30 Dose: 4 mg Pantoprazole Sodium (Protonix) 40 mg PO DAILY [facility] Last Admin: 10/19/17 07:53 Dose: 40 mg Phenol (Chloraseptic [place] 180 Ml Bot) 0 ml PO PRN PRN PRN Reason: Sore Throat Pregabalin (Lyrica) 75 mg PO TID [facility] Last Admin: 10/19/17 07:55 Dose: 75 mg Saccharomyces Boulardii (Florastor) 250 mg PO DAILY [facility] Last Admin: 10/19/17 07:54 Dose: 250 mg Senna (Senokot) 2 tab PO HSPRN PRN PRN Reason: Constipation Sodium Chloride ([place] Nasal [place] 0.65%) 0 ml EA NARE QIDPRN PRN PRN Reason: Nasal Congestion Temazepam (Restoril) 15 mg PO HSPRN PRN PRN Reason: Insomnia Last Admin: 10/18/17 21:26 Dose: 15 mg Tizanidine HCl (Zanaflex) 4 mg PO Q8H PRN PRN Reason: Muscle Spasm Last Admin: 10/17/17 22:14 Dose: 4 mg
[2017-10-19 14:49] LABS: ANA Symphony (Qualitative) Negative (Negative); dsDNA IgG Antibody 1.7 IU/mL (<10 Negative)
[2017-10-19] MEDS: Ondansetron HCl/PF 4 MG/2 ML Vial IVP PRN (15:22)
[2017-10-19] MEDS: Temazepam 15 MG CAP PO PRN (20:46)
[2017-10-19] MEDS: Atorvastatin Calcium 20 MG TAB PO SCH (20:46)
[2017-10-20] MEDS: HYDROcodone/Acetaminophen 5/325 mg Tablet PO PRN ×3 (06:00→18:12)
[2017-10-20] MEDS ORDERED: Potassium Chloride 20 MEQ TAB PO SCH (06:45)
[2017-10-20] MEDS: Pregabalin 75 MG CAP PO SCH ×3 (08:24→21:01)
[2017-10-20] MEDS: Bupropion 150 MG SR TAB PO SCH ×2 (08:24→21:01)
[2017-10-20] MEDS: Aspirin 325 mg Enteric Coated Tablet PO SCH (08:25)
[2017-10-20] MEDS: guaiFENesin ER 600 MG TAB PO SCH ×2 (08:25→21:01)
[2017-10-20] MEDS: Folic Acid 1 MG TAB PO SCH (08:26)
[2017-10-20] MEDS: Cyanocobalamin (Vitamin B-12) 1,000 MCG TAB PO SCH (08:26)
[2017-10-20] MEDS: Amlodipine 5 MG TAB PO SCH (08:26)
[2017-10-20] MEDS: Carvedilol 3.125 MG TAB PO SCH ×2 (08:26→21:01)
[2017-10-20] MEDS: Saccharomyces boulardii 250 MG CAP PO SCH (08:27)
--- NOTE | 2017-10-20 08:43 | PRG ---
DATE OF SERVICE: 10/20/2017 He feels better, has no acute complaints. He wants to have another x-ray before he leaves. PHYSICAL EXAMINATION: VITAL SIGNS: Temperature 97.9, pulse 63, respirations 20, O2 sat 96% on room air, blood pressure 139 /77. HEENT: Unremarkable. NECK: Without adenopathy, JVD, or bruits. LUNGS: Clear without wheezing or rhonchi. CARDIAC: S1, S2 regular, without murmur. ABDOMEN: Soft. EXTREMITIES: No edema. LABORATORY DATA: His vasculitis panel was still pending. Partial results do not point towards vascu litis at this time. No new cultures have resulted. ASSESSMENT: 1. Bilateral pneumonitis. 2. New diagnosis of hepatitis C. RECOMMENDATIONS: I think it is time to go ahead and change him over to oral antibiotics. If he forde s well, he can probably go home tomorrow. Hypersensitivity pneumonitis needs to continue to be in th e differential. Per the patient's history, it sounds like there is some mold in the house. The only way we can really exclude that diagnosis is by exposure. In other words, if he goes back to his [facility] and has recurrence of symptoms it would suggest that he is having hypersensitivity pneumonitis, ho wever, I would not expect him to immediately develop symptoms on returning home. It would probably t ai several weeks.
[2017-10-20] MEDS: Mometasone/Formoterol 120 PUFF INHALER INH SCH ×2 (10:14→19:12)
--- NOTE | 2017-10-20 10:15 | PDOC.PN ---
- Subjective Encounter Start Date: 10/20/17 Encounter Start Time: 08:30 Patient seen and examined. No new complaints. No overnight events - Objective MAR Reviewed: Yes Vital Signs & Weight: Vital Signs (12 hours) Temp Pulse Resp BP BP Pulse Ox 10/20/17 08:26 63 139/77 10/20/17 07:17 97.9 F 63 20 139/77 96 Weight Weight 197 lb I&O: 10/19/17 10/20/17 10/21/17 06:59 06:59 06:59 Intake Total 1280 1500 Balance 1280 1500 Result Diagrams: 10/19/17 04:13 10/19/17 04:13 Radiology Reviewed by me: Yes (chest xray shows improvement) Phys Exam - Physical Examination Constitutional: NAD HEENT: PERRLA, moist MMs, sclera anicteric Neck: no JVD, supple Respiratory: no wheezing, no rales, no rhonchi Cardiovascular: RRR, no significant murmur, no rub Gastrointestinal: soft, non-tender, no distention, positive bowel sounds Musculoskeletal: no edema, pulses present Neurological: non-focal, normal sensation, moves all 4 limbs Lymphatic: no nodes Psychiatric: normal affect, A&O x 3 Skin: no rash, normal turgor Dx/Plan (1) Multifocal pneumonia Code(s): J18.9 - PNEUMONIA, UNSPECIFIED ORGANISM Status: Acute (2) Abnormal LFTs Code(s): R94.5 - ABNORMAL RESULTS OF LIVER FUNCTION STUDIES Status: Chronic (3) Lactic acidosis Code(s): E87.2 - ACIDOSIS Status: Resolved (4) Pancytopenia Code(s): D61.818 - OTHER PANCYTOPENIA Status: Acute (5) Anxiety disorder Code(s): F41.9 - ANXIETY DISORDER, UNSPECIFIED Status: Chronic Qualifiers: (6) CAD (coronary artery disease) Code(s): I25.10 - ATHSCL HEART DISEASE OF [place] CORONARY ARTERY W/O ANG PCTRS Status: Chronic Comment: (7) CKD (chronic kidney disease) stage 3, GFR 30-59 ml/min Code(s): N18.3 - CHRONIC KIDNEY DISEASE, STAGE 3 (MODERATE) Status: Chronic (8) Chronic back pain Code(s): M54.9 - DORSALGIA, UNSPECIFIED; G89.29 - OTHER CHRONIC PAIN Status: Chronic Comment: (9) GERD (gastroesophageal reflux disease) Code(s): K21.9 - GASTRO-ESOPHAGEAL REFLUX DISEASE WITHOUT ESOPHAGITIS Status: Chronic (10) Hyperlipidemia Code(s): E78.5 - HYPERLIPIDEMIA, UNSPECIFIED Status: Chronic Qualifiers: Comment: (11) Hypertension Code(s): I10 - ESSENTIAL (PRIMARY) HYPERTENSION Status: Chronic Qualifiers: (12) COPD (chronic obstructive pulmonary disease) Status: Chronic (13) Chronic hepatitis C Code(s): B18.2 - CHRONIC VIRAL HEPATITIS C Status: Chronic (14) Folate deficiency Code(s): E53.8 - DEFICIENCY OF OTHER SPECIFIED B GROUP VITAMINS Status: Acute (15) Hypokalemia Code(s): E87.6 - HYPOKALEMIA Status: Acute - Plan cont current plan of care, continue antibiotics * today iv antibiotics changed to oral omnicef and levaquin * chest xray today showed significant improvement * as per pulmonary will observe him today and plan for discharge tomorrow, pt agreed with this plan * medication reviewed as below * symptomatic treatment. * replace potassium Review of Systems - Review of Systems Eyes: negative: Pain, Vision Change, Conjunctivae Inflammation, Eyelid Inflammation, Redness, Other ENT: negative: Ear Pain, Ear Discharge, Nose Pain, Nose Discharge, Nose Congestion, Mouth Pain, Mouth Swelling, Throat Pain, Throat Swelling, Other Respiratory: negative: Cough, Dry, Shortness of Breath, Hemoptysis, SOB with Excertion, Pleuritic Pain, Sputum, Wheezing Cardiovascular: negative: chest pain, palpitations, orthopnea, paroxysmal nocturnal dyspnea, edema, light headedness, other Gastrointestinal: negative: Nausea, Vomiting, Abdominal Pain, Diarrhea, Constipation, Melena, Hematochezia, Other Genitourinary: negative: Dysuria, Frequency, Incontinence, Hematuria, Retention , Other Musculoskeletal: negative: Neck Pain, Shoulder Pain, Arm Pain, Back Pain, Hand Pain, Leg Pain, Foot Pain, Other Skin: negative: Rash, Lesions, Mannie, Bruising, Other - Medications/Allergies Allergies/Adverse Reactions: Allergies Allergy/AdvReac Type Severity Reaction Status Date / Time Sulfa (Sulfonamide Allergy Verified 11/21/13 19:18 Antibiotics) Medications: Current Medications Acetaminophen (Tylenol) 650 mg PO Q4H PRN PRN Reason: Headache/Fever or Mild Pain Hydrocodone Bitart/Acetaminophen ([place] 5/325) 2 tab PO Q6H PRN PRN Reason: Pain 7-10 Last Admin: 10/20/17 06:00 Dose: 2 tab Hydrocodone Bitart/Acetaminophen ([place] 5/325) 1 tab PO Q4H PRN PRN Reason: Moderate Pain (4-6) Al Hydroxide/Mg Hydroxide (Maalox) 15 ml PO Q4H PRN PRN Reason: Heartburn or Indigestion Albuterol/Ipratropium (Duoneb) 3 ml NEB [id number] [facility] [place] Last Admin: 10/20/17 06:33 Dose: Not Given Amlodipine Besylate (Norvasc) 5 mg PO DAILY [facility] [place] Last Admin: 10/20/17 08:26 Dose: 5 mg Artificial Tears (Tears Naturale) 0 drop EA EYE PRN PRN PRN Reason: Dry Eyes Aspirin (Ecotrin) 325 mg PO DAILY [facility] [place] Last Admin: 10/20/17 08:25 Dose: 325 mg Atorvastatin Calcium (Lipitor) 20 mg PO HS [facility] [place] Last Admin: 10/19/17 20:46 Dose: 20 mg Bupropion HCl (Wellbutrin Sr) 150 mg PO BID [facility] [place] Last Admin: 10/20/17 08:24 Dose: 150 mg Carvedilol (Coreg) 3.125 mg PO BID [facility] [place] Last Admin: 10/20/17 08:26 Dose: 3.125 mg Cefdinir (Omnicef) 600 mg PO DAILY [facility] [place] Clonidine (Catapres) 0.1 mg PO Q4H PRN PRN Reason: Systolic BP > 180 Cyanocobalamin (Vitamin B-12) 1,000 mcg PO DAILY [facility] [place] Last Admin: 10/20/17 08:26 Dose: 1,000 mcg Folic Acid (Folvite) 1 mg PO DAILY [facility] [place] Last Admin: 10/20/17 08:26 Dose: 1 mg Guaifenesin (Mucinex) 600 mg PO Q12HR [facility] [place] Last Admin: 10/20/17 08:25 Dose: 600 mg Guaifenesin (Robitussin Sf) 200 mg PO Q4H PRN PRN Reason: Cough Hydralazine HCl (Apresoline) 10 mg SLOW IVP Q4H PRN PRN Reason: Systolic BP > 180 Hydroxyzine HCl (Atarax) 25 mg PO TID PRN PRN Reason: Anxiety Last Admin: 10/17/17 01:24 Dose: 25 mg Levofloxacin (Levaquin) 750 mg PO DAILY [facility] Loperamide HCl (Imodium) 2 mg PO PRN PRN PRN Reason: Diarrhea/Loose Stools Loratadine (Claritin) 10 mg PO DAILYPRN PRN PRN Reason: Sinus Symptoms Magnesium Hydroxide (Milk Of Magnesium) 30 ml PO DAILYPRN PRN PRN Reason: Constipation Mineral Oil/White Petrolatum (Eucerin Cream) 0 gm TOP BIDPRN PRN PRN Reason: Dry Skin Mometasone Furoate/Formoterol Fumar (Dulera 200 Mcg/5 Mcg Inhaler) 2 puff INH BID-RT [facility] [place] Last Admin: 10/19/17 19:10 Dose: 2 puff Ondansetron HCl (Zofran Odt) 4 mg PO Q6H PRN PRN Reason: Nausea/Vomiting Last Admin: 10/20/17 08:32 Dose: 4 mg Ondansetron HCl (Zofran) 4 mg IVP Q6H PRN PRN Reason: Nausea/Vomiting Last Admin: 10/19/17 15:22 Dose: 4 mg Pantoprazole Sodium (Protonix) 40 mg PO DAILY [facility] [place] Last Admin: 10/20/17 08:26 Dose: 40 mg Phenol (Chloraseptic [place] 180 Ml Bot) 0 ml PO PRN PRN PRN Reason: Sore Throat Pregabalin (Lyrica) 75 mg PO TID [facility] [place] Last Admin: 10/20/17 08:24 Dose: 75 mg Saccharomyces Boulardii (Florastor) 250 mg PO DAILY [facility] [place] Last Admin: 10/20/17 08:27 Dose: 250 mg Senna (Senokot) 2 tab PO HSPRN PRN PRN Reason: Constipation Sodium Chloride ([place] Nasal [place] 0.65%) 0 ml EA NARE QIDPRN PRN PRN Reason: Nasal Congestion Sodium Chloride (Flush - Normal Saline) 10 ml IVF Q12HR [facility] [place] Last Admin: 10/20/17 08:27 Dose: 10 ml Sodium Chloride (Flush - Normal Saline) 10 ml IVF PRN PRN PRN Reason: Saline Flush Temazepam (Restoril) 15 mg PO HSPRN PRN PRN Reason: Insomnia Last Admin: 10/19/17 20:46 Dose: 15 mg Tizanidine HCl (Zanaflex) 4 mg PO Q8H PRN PRN Reason: Muscle Spasm Last Admin: 10/17/17 22:14 Dose: 4 mg
[2017-10-20] MEDS: Cefdinir 300 MG CAP PO SCH (10:26)
--- NOTE | 2017-10-20 11:26 | RAD ---
PA AND LATERAL CHEST RADIOGRAPH: Date: 10-20-17 History: Follow up pneumonia. Comparison: 10-14-17 FINDINGS: The ground glass airspace opacity seen on the prior study within the right lung is less prominent esequiel n on today's exam. There are scattered linear densities seen in the lungs bilaterally, probably relat ed to mild chronic lung changes. There is no focal area of consolidation or pleural fluid identified. The cardiac silhouette and pulmonary vasculature are within normal limits. Vascular calcifications se en in the thoracic aorta. Post-surgical changes right shoulder are noted and there is resorption of t he distal left clavicle which may be related to prior injury. There is suggestion of vertical height loss involving a lower thoracic vertebral body. However, this may be related to fusion anomaly involv ing a lower thoracic vertebral body seen on CT of the chest on 09-09-17. IMPRESSION: 1. No acute cardiopulmonary process. 2. Mild chronic lung changes. 3. Previously seen ground glass appearing opacities in the right hemithorax are not appreciated on to day's exam. POS: [facility]
[2017-10-20] MEDS: Atorvastatin Calcium 20 MG TAB PO SCH (21:01)
[2017-10-21] MEDS: HYDROcodone/Acetaminophen 5/325 mg Tablet PO PRN ×3 (00:12→13:29)
[2017-10-21] MEDS: Mometasone/Formoterol 120 PUFF INHALER INH SCH (06:48)
[2017-10-21] MEDS: Pregabalin 75 MG CAP PO SCH (07:39)
[2017-10-21] MEDS: Cefdinir 300 MG CAP PO SCH (07:40)
[2017-10-21] MEDS: Saccharomyces boulardii 250 MG CAP PO SCH (07:40)
[2017-10-21] MEDS: Cyanocobalamin (Vitamin B-12) 1,000 MCG TAB PO SCH (07:40)
[2017-10-21] MEDS: Bupropion 150 MG SR TAB PO SCH (07:40)
[2017-10-21] MEDS: Aspirin 325 mg Enteric Coated Tablet PO SCH (07:41)
[2017-10-21] MEDS: Amlodipine 5 MG TAB PO SCH (07:41)
[2017-10-21] MEDS: Carvedilol 3.125 MG TAB PO SCH (07:41)
[2017-10-21] MEDS: guaiFENesin ER 600 MG TAB PO SCH (07:41)
[2017-10-21] MEDS: Folic Acid 1 MG TAB PO SCH (07:41)
[2017-10-21] MEDS ORDERED: Potassium Chloride 20 MEQ TAB PO SCH (07:45)
--- NOTE | 2017-10-21 09:00 | PRG ---
DATE OF SERVICE: 10/21/2017 SUBJECTIVE: The patient is doing well, had no complaints. PHYSICAL EXAMINATION: VITAL SIGNS: On exam, temperature is 98.3, pulse 72, respirations 18, 93% on room air, blood pressur e 130/75. HEENT: Unremarkable. NECK: No JVD. LUNGS: Clear without wheeze or rhonchi. CARDIAC: S1 and S2, regular. ABDOMEN: Soft. EXTREMITIES: No edema. IMAGING: His chest x-ray from yesterday showed resolution of the infiltrates. ASSESSMENT: Atypical pneumonia - better after current antibiotic therapy. RECOMMENDATIONS: Continue Levaquin and Omnicef and treat for a full 14 days. He is clear for discha rge from my standpoint. I have asked him to follow up in my office in 2-3 weeks with a chest x-ray. He needs to establish some kind of followup with GI for his hepatitis C.
[2017-10-21] MEDS ORDERED: Magnesium Sulfate 4 GM in Sodium Chloride 0.9% 250 ML 250 ML IVPB SCH (10:00)
[2017-10-21 11:17] VITALS: BP 118/77; TEMP 97.7
[2017-10-21] MEDS: Ondansetron HCl/PF 4 MG/2 ML Vial IVP PRN (13:12)
--- NOTE | 2017-10-23 14:16 | DIS ---
DATE OF DISCHARGE: 10/21/2017 DISCHARGE DISPOSITION: Home. FOLLOWUP: 1. Follow up with primary care physician, Dr. Macias in 1 week. 2. Follow up with pulmonary, Dr. Dumont in 2-4 weeks. 3. Follow up with Gastroenterology, Dr. Car in 1 week. 4. Chest x-ray after 4 weeks is recommended. Primary care physician advised to follow. ALLERGIES: The patient is allergic to SULFA. The patient was seen and examined on the day of discharge. Denies any new complaints. No chest pain , shortness of breath or palpitations. BRIEF HOSPITAL COURSE: The patient is a 62-year-old male with COPD with ongoing tobacco abuse and co ronary artery disease, who presented to the hospital with fever and cough. His workup was consistent with pneumonia. A chest x-ray showed extensive right lung airspace opacities present throughout the right upper, middle and lower lobe. The left lung was clear. He was started on broad-spectrum anti biotics. His antibiotics have been changed to Levaquin and Omnicef. He will complete 2 weeks of price atment in total. He has been cleared by Pulmonary for discharge. FINAL DIAGNOSES: 1. Sepsis with acute organ dysfunction secondary to community-acquired pneumonia, suspected pneumoco ccal. 2. Community-acquired pneumonia, suspected pneumococcal (multifocal pneumonia). 3. Abnormal liver function tests. His hepatitis profile was positive for hepatitis C. His hepatiti s C PCR was elevated as well. He was advised to follow up with Dr. Car as outpatient. 4. Anxiety. 5. Coronary artery disease. 6. Acute kidney injury, mild, resolved. 7. Hypomagnesemia with magnesium 1.1. His magnesium was replaced. He will benefit from a repeat ma gnesium. His potassium on the day of discharge was 4.0. 8. Folic acid deficiency. 9. Hypokalemia, replaced. 10. Chronic low back pain. 11. Hypertension. 12. Hyperlipidemia. 13. Gastroesophageal reflux disease. 14. Pancytopenia secondary to pneumonia, improved. 15. Chronic anemia. Plan of care was discussed with the patient in detail. He stated understanding.
== END 2017-10-21 14:22 | disposition home or self-care (01) | DRG 871 ==
LOC: ERS 13:04 → T4-A 18:15
PROVIDERS: ADMIT Internal Medicine; ATTEND Internal Medicine
DX: A41.9 Sepsis, unspecified organism (principal); J18.9 Pneumonia, unspecified organism; J44.1 Chronic obstructive pulmonary disease with (acute) exacerbation; E87.2 Acidosis; D61.818 Other pancytopenia; N17.9 Acute kidney failure, unspecified; I13.0 Hypertensive heart and chronic kidney disease with heart failure and stage 1 through stage 4 chronic kidney disease, or unspecified chronic kidney disease; I50.22 Chronic systolic (congestive) heart failure; F17.210 Nicotine dependence, cigarettes, uncomplicated; I25.10 Atherosclerotic heart disease of native coronary artery without angina pectoris; E78.5 Hyperlipidemia, unspecified; M54.9 Dorsalgia, unspecified; G89.29 Other chronic pain; Z88.2 Allergy status to sulfonamides; D72.819 Decreased white blood cell count, unspecified; F41.9 Anxiety disorder, unspecified; N18.3 Chronic kidney disease, stage 3 (moderate); K21.9 Gastro-esophageal reflux disease without esophagitis; E53.8 Deficiency of other specified B group vitamins; B18.2 Chronic viral hepatitis C; E83.42 Hypomagnesemia; E87.6 Hypokalemia; Z95.5 Presence of coronary angioplasty implant and graft; Z96.652 Presence of left artificial knee joint
CPT/HCPCS: 36415; 71045; 71046; 80053; 80074; 80202; 81003; 82085; 82550; 82553; 82607; 82746; 82787; 83605; 83735; 84132; 84484; 85025; 85060; 86038; 86225; 87040; 87086; 87116; 87149; 87206; 87522; 93005; 94640; 96361; 96365; 96367; A4216; J0456; J0692; J0696; J1956; J2405; J3370; J3420; J3475; J7050; J7620; Q0162

== ENCOUNTER 2018-05-16 16:25 | Inpatient (IN) | payer MEDICARE ==
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
[2018-05-16 17:57] LABS: #Eosinphils 0.1 thou/uL (0.0-0.7); #Lymphocytes 1.5 thou/uL (1.20-3.40); #Monocytes 0.5 thou/uL (0.11-0.59); #Neutrophils 4.9 thou/uL (1.40-6.50); %Basophils 0.2 % (0.0-1.0); %Eosinophils 1.3 % (0.0-10.0); %Lymphocytes 20.9 % (21.0-51.0); %Monocytes 6.6 % (0.0-10.0); %Neutrophils 71.1 % (42.0-75.0); Mean Corpuscular HGB CONC 32.9 g/dL (32.0-36.0); Mean Corpuscular Hemoglobin 30.9 pg (27.0-31.0); Mean Platelet Volume 7.6 fL (7.4-10.4); Platelet Count 244 thou/uL (130-400); RBC Distribution Width 12.3 % (11.5-14.5); White Blood Cell (WBC) Count 6.9 thou/uL (4.8-10.8)
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
[2018-05-16 18:17] LABS: ALT (SGPT) 17 U/L (8-55); AST (SGOT) 29 U/L (5-34); Albumin 4.2 g/dL (3.4-4.8); Alkaline Phosphatase 55 U/L (40-150); Anion Gap 9 mmol/L (10-20); BUN (Urea Nitrogen) 18 mg/dL (8.4-25.7); Bilirubin, Total 0.5 mg/dL (0.2-1.2); Calc. Creatinine Clearance 0 mL/min (70-130); Calcium 9.8 mg/dL (7.8-10.44); Carbon Dioxide 33 mmol/L (23-31); Chloride 100 mmol/L (98-107); Estimated GFR-MDRD 51; Globulin 3.9 g/dL (2.4-3.5); Glucose 79 mg/dL (80-115); Potassium 4.5 mmol/L (3.5-5.1); Protein, Total 8.1 g/dL (5.8-8.1); Sodium 137 mmol/L (136-145)
[2018-05-16 20:24] LABS: Bilirubin Negative (Negative); Blood, Urine Negative (Negative); Clarity CLEAR (Clear); Glucose, Urine (Dipstick) Negative (Negative); Leukocyte Negative (Negative); Nitrite Negative (Negative); Protein, Urine (Dipstick) Negative (Neg-Trace); Specific Gravity, Urine 1.002 (1.002-1.036); Urobilinogen 0.2 mg/dL (0.2-1.0); pH, Urine 5.5 (5.0-9.0)
[2018-05-16] MEDS ORDERED: Diazepam 5 MG TAB ONE (21:18)
[2018-05-16] MEDS ORDERED: Acetaminophen 325 MG TAB PO PRN (23:44)
[2018-05-16] MEDS ORDERED: Ondansetron PF 4 MG/2 ML Vial IVP PRN (23:44)
[2018-05-16] MEDS ORDERED: Ondansetron ODT 4 MG TAB SL PRN (23:44)
[2018-05-17 00:02] VITALS: BMI 26.4
[2018-05-17] MEDS: Morphine 4 MG/ML VIAL SLOW IVP PRN ×2 (06:13→20:35)
[2018-05-17] MEDS ORDERED: Iopamidol 370 76% 100 ML VIAL ONE (08:16)
[2018-05-17] MEDS ORDERED: Benzonatate 100 MG CAP PO PRN (08:30)
[2018-05-17] MEDS ORDERED: Acetaminophen 325 MG TAB PO PRN (08:30)
[2018-05-17] MEDS ORDERED: hydrALAZINE 20 MG/ML VIAL SLOW IVP PRN (08:30)
[2018-05-17] MEDS ORDERED: Nitroglycerin 0.4 MG TAB (25 Tab Bottle) SL PRN (08:30)
[2018-05-17] MEDS ORDERED: Senokot S 8.6-50 MG TAB PO PRN ×2 (08:30)
[2018-05-17] MEDS ORDERED: Calcium Carbonate 500 MG ChewTAB PO PRN (08:30)
[2018-05-17] MEDS ORDERED: Bisacodyl 5 MG TAB PO PRN (08:30)
[2018-05-17] MEDS ORDERED: cloNIDine 0.1 MG TAB PO PRN (08:30)
[2018-05-17] MEDS ORDERED: Diabetic Tussin 200 MG/10 ML UDCUP PO PRN (08:30)
[2018-05-17] MEDS ORDERED: Sodium Chloride 0.9% 1,000 ML IV SCH (08:30)
[2018-05-17] MEDS ORDERED: Ciprofloxacin 500 MG TAB PO SCH (09:00)
[2018-05-17] MEDS ORDERED: BUPROPION HCL PO SCH (09:00)
[2018-05-17] MEDS ORDERED: PREGABALIN PO SCH (09:00)
[2018-05-17] MEDS: Enoxaparin Sodium 40 MG/0.4 ML SYRINGE SC SCH (09:24)
[2018-05-17] MEDS: Pregabalin 75 MG CAP PO SCH ×2 (09:25→20:34)
[2018-05-17] MEDS: Ciprofloxacin 500 MG TAB PO SCH ×2 (09:26→20:34)
[2018-05-17] MEDS: Bupropion 150 MG SR TAB PO SCH (09:26)
[2018-05-17] MEDS: Famotidine 20 MG TAB PO SCH ×2 (09:27→20:33)
--- NOTE | 2018-05-17 10:14 | RAD ---
SINGLE VIEW OF THE CHEST: Comparison: 04-05-18 History: Pneumonia. FINDINGS: Single view of the chest shows normal sized cardiomediastinal silhouette. Increased interstitial chantel ings are present. There is no evidence of consolidation, mass, or pleural effusion. A bone anchor is seen in the right shoulder from prior right shoulder surgery. IMPRESSION: No evidence of acute cardiopulmonary disease. POS: [facility]
[2018-05-17] MEDS: Sodium Chloride 0.9% 1,000 ML IV SCH (11:30)
[2018-05-17 12:04] LABS: Anion Gap 11 mmol/L (10-20); BUN (Urea Nitrogen) 20 mg/dL (8.4-25.7); Calc. Creatinine Clearance 92 mL/min (70-130); Carbon Dioxide 28 mmol/L (23-31); Chloride 105 mmol/L (98-107); Estimated GFR-MDRD 74; Glucose 95 mg/dL (80-115); Potassium 4.2 mmol/L (3.5-5.1); Sodium 140 mmol/L (136-145)
[2018-05-17] MEDS: traMADol HCl 50 MG TAB PO PRN ×2 (12:20→16:52)
--- NOTE | 2018-05-17 13:58 | CT ---
CT ANGIOGRAM CHEST: HISTORY: Syncopal episode. Elevated D-dimer. COMPARISON: 09/09/2017 TECHNIQUE: CT angiogram of the chest is performed in the axial plane, and 3-dimensional reformatted images are s ubmitted for interpretation. FINDINGS: Stable, nonspecific left paratracheal lymph node, measuring 1.6 x 1 cm (previously measuring 1.9 x 1. 1 cm). Additional nonspecific mediastinal lymph nodes are noted. There is a stable right hilar lymp h node, measuring 1.4 x 1.1 cm (previously measuring 1.1 cm in maximum dimension). Heart size is wit hin normal limits. No pericardial effusion. There are coronary calcifications. The visualized aort a has an overall normal caliber. Limited evaluation due to technique. The visualized upper solid ab dominal viscera is unremarkable. There is adequate contrast opacification of the pulmonary arterial system, to the level of the segmen marjan arteries. No evidence of filling defect to suggest thromboembolism. The thyroid gland and axilla are unremarkable. There are no lytic or blastic lesions in the osseous structures. Stable loss of vertebral body height along the left aspect of the lower thoracic spine with associate d mild rightward curvature of the spine. Trachea and central bronchi are patent. Stable emphysematous changes. Spiculated nodule in the righ t upper lobe, measuring 7.1 x 0.5 cm. The nodule was not definitively seen on the previous examinati on. Previously, there was evidence of ground glass and alveolar opacification, which may have obscur ed the nodule noted on the current study. In the right lower lobe, there is a 0.6 x 0.6 cm nodule, w hich is also difficult to compare due to previous opacities in the right lower lobe. No significant pleural fluid or pneumothorax. IMPRESSION: 1. No evidence of pulmonary artery embolism to the level of the segmental arteries. 2. Nodules in the right upper lobe and right lower lobe, as described above. CODE LN POS: [facility]
--- NOTE | 2018-05-17 15:24 | ULT ---
BILATERAL CAROTID DUPLEX ULTRASOUND: DATE: 03/19/18 HISTORY: Syncope. TECHNIQUE: Rangel scale ultrasound with color flow and spectral Doppler imaging of the extracranial carotid artery systems performed bilaterally. FINDINGS: Mild plaque formation noted on either side. The peak systolic velocity in the right ICA measures 86 cm/second with an end-diastolic velocity of 3 8 cm/second and a systolic ratio of 0.76. The peak systolic velocity in the left ICA measures 84 cm/second with an end-diastolic velocity of 35 cm/second and a systolic ratio of 0.94. Flow in both vertebral arteries remains antegrade. IMPRESSION: No evidence of hemodynamically significant stenosis in either ICA. POS: [facility]
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
[2018-05-17] MEDS ORDERED: predniSONE 20 MG TAB PO SCH (16:00)
[2018-05-17] MEDS: Atorvastatin Calcium 20 MG TAB PO SCH (20:34)
[2018-05-17] MEDS ORDERED: Non-Formulary Item 1 EACH (Pravastatin Sodium [Pravastatin Sodium] 80 MG) PO SCH (21:00)
[2018-05-18] MEDS: Sodium Chloride 0.9% 1,000 ML IV SCH (03:14)
[2018-05-18] MEDS: traMADol HCl 50 MG TAB PO PRN ×2 (03:15→12:39)
[2018-05-18 06:12] LABS: Anion Gap 18 mmol/L (10-20); BUN (Urea Nitrogen) 14 mg/dL (8.4-25.7); Calc. Creatinine Clearance 91 mL/min (70-130); Calcium 9.6 mg/dL (7.8-10.44); Carbon Dioxide 21 mmol/L (23-31); Chloride 105 mmol/L (98-107); Estimated GFR-MDRD 73; Glucose 112 mg/dL (80-115); Potassium 4.8 mmol/L (3.5-5.1); Sodium 139 mmol/L (136-145)
[2018-05-18] MEDS: Morphine 4 MG/ML VIAL SLOW IVP PRN ×2 (09:50→22:16)
[2018-05-18] MEDS: Ciprofloxacin 500 MG TAB PO SCH ×2 (10:00→22:15)
[2018-05-18] MEDS: Bupropion 150 MG SR TAB PO SCH (10:00)
[2018-05-18] MEDS: predniSONE 20 MG TAB PO SCH (10:00)
[2018-05-18] MEDS: Pregabalin 75 MG CAP PO SCH ×2 (10:01→22:12)
[2018-05-18] MEDS: Enoxaparin Sodium 40 MG/0.4 ML SYRINGE SC SCH (10:02)
[2018-05-18] MEDS: Famotidine 20 MG TAB PO SCH ×2 (10:02→22:14)
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
[2018-05-18] MEDS ORDERED: Communication Order-Pharmacy FS SCH (16:30)
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
[2018-05-18] MEDS: Atorvastatin Calcium 20 MG TAB PO SCH (22:15)
[2018-05-19] MEDS: Sodium Chloride 0.9% 1,000 ML IV SCH ×3 (00:34→17:38)
[2018-05-19] MEDS: Ciprofloxacin 500 MG TAB PO SCH ×2 (08:43→20:21)
[2018-05-19] MEDS: Famotidine 20 MG TAB PO SCH ×2 (08:43→20:21)
[2018-05-19] MEDS: Bupropion 150 MG SR TAB PO SCH (08:43)
[2018-05-19] MEDS: predniSONE 20 MG TAB PO SCH (08:44)
[2018-05-19] MEDS: Pregabalin 75 MG CAP PO SCH ×2 (09:08→20:21)
[2018-05-19] MEDS ORDERED: Midazolam HCl 2 mg/2 ml Vial ONE ×3 (09:31→13:25)
[2018-05-19] MEDS ORDERED: Fentanyl 100 MCG/2 ML VIAL ONE ×2 (09:31→13:24)
[2018-05-19] MEDS ORDERED: Sodium Chloride 0.9% 200 ML IV PRN (09:54)
[2018-05-19] MEDS ORDERED: Acetaminophen/Codeine 30-300mg Tablet PO PRN ×3 (09:54→16:30)
[2018-05-19] MEDS ORDERED: Sodium Chloride 0.9% 1,000 ML IV SCH (10:00)
--- NOTE | 2018-05-19 10:17 | PRG ---
DATE OF SERVICE: 05/19/2018 SUBJECTIVE: Adolfo Mcginnis tentatively schedule for cardiac catheterization this morning. Echocardiogram done yesterday shows normal ejection fraction with inferolateral hypokinesis. He had no complaints overnight. He denies having any chest discomfort overnight. He denies shortness of breath. OBJECTIVE: VITAL SIGNS: His vital signs have been stable. LUNGS: Clear. HEART: Regular rhythm. S1 and S2 are normal. ABDOMEN: Soft. IMPRESSION: Status post syncope, most likely sudden cardiac /ventricular tachycardia that resolved spontaneously. He is extremely unlikely, this was a syncopal event related to a neurological issue. We will see what his cath shows. Job ID: [id number]
[2018-05-19] MEDS ORDERED: Iopamidol 370 76% 100 ML VIAL ONE (11:19)
[2018-05-19] MEDS ORDERED: PROPOFOL 200 MG/20 ML VIAL ONE ×2 (12:10→12:11)
[2018-05-19] MEDS ORDERED: PHENYLEPHRINE-NS 100 MCG/ML 10 ML SYRINGE ONE (12:10)
[2018-05-19] MEDS ORDERED: Adenosine 6 MG/2 ML VIAL ONE (13:25)
[2018-05-19] MEDS ORDERED: Propofol 1,000 MG/100 ML VIAL IV ONE (13:26)
--- NOTE | 2018-05-19 13:52 | PDOC.PN ---
- Subjective Encounter Start Date: 05/19/18 Encounter Start Time: 13:50 Subjective: feels overwhelmed. support provided an dfeels better -: s/p Cath.reports that he was told that it was normal -: official report pending - Objective MAR Reviewed: Yes Vital Signs & Weight: Vital Signs (12 hours) Temp Pulse Resp BP BP Pulse Ox 05/19/18 11:37 97.6 F 55 L 16 151/77 H 96 05/19/18 09:54 52 L 18 134/77 05/19/18 08:37 97 05/19/18 07:39 97.7 F 55 L 16 146/74 H 97 05/19/18 04:34 97.6 F 55 L 19 128/69 99 Weight Weight 189 lb 8 oz I&O: 05/18/18 05/19/18 05/20/18 06:59 06:59 06:59 Intake Total 960 1230 Balance 960 1230 Result Diagrams: 05/16/18 17:44 05/18/18 05:40 Radiology Reviewed by me: Yes (ECHO-EF 50%.mild diastolic dysFx) Phys Exam - Physical Examination Constitutional: NAD HEENT: PERRLA, moist MMs, sclera anicteric, oral pharynx no lesions Neck: no nodes, no JVD, supple, full ROM Respiratory: no wheezing, no rales, no rhonchi, clear to auscultation bilateral Cardiovascular: RRR, no significant murmur, no rub Gastrointestinal: soft, non-tender, no distention, positive bowel sounds Musculoskeletal: no edema, pulses present Neurological: non-focal, normal sensation, moves all 4 limbs Psychiatric: normal affect, A&O x 3 Skin: no rash Dx/Plan (1) Syncope and collapse Code(s): R55 - SYNCOPE AND COLLAPSE Status: Acute (2) Lung nodule Code(s): R91.1 - SOLITARY PULMONARY NODULE Status: Acute Comment: New since last CT in 2017 (3) CAD (coronary artery disease) Code(s): I25.10 - ATHSCL HEART DISEASE OF [place] CORONARY ARTERY W/O ANG PCTRS Status: Chronic Comment: (4) COPD (chronic obstructive pulmonary disease) Status: Chronic (5) Chronic back pain Code(s): M54.9 - DORSALGIA, UNSPECIFIED; G89.29 - OTHER CHRONIC PAIN Status: Chronic Comment: (6) Chronic hepatitis C Code(s): B18.2 - CHRONIC VIRAL HEPATITIS C Status: Chronic (7) Hyperlipidemia Code(s): E78.5 - HYPERLIPIDEMIA, UNSPECIFIED Status: Chronic Qualifiers: Comment: (8) Hypertension Code(s): I10 - ESSENTIAL (PRIMARY) HYPERTENSION Status: Chronic Qualifiers: - Plan DVT proph w/SCDs complete cardiac Work up.if negative ,may need EP eval for arrythmias. -: if no arrythmias, may need to rule out seizures. -: Hd stable.not safe for DC untill diagnosis reached -: will monitor * . Review of Systems - Review of Systems Constitutional: negative: fever, chills, sweats, weakness, malaise, other ENT: negative: Ear Pain, Ear Discharge, Nose Pain, Nose Discharge, Nose Congestion, Mouth Pain, Mouth Swelling, Throat Pain, Throat Swelling, Other Respiratory: negative: Cough, Dry, Shortness of Breath, Hemoptysis, SOB with Excertion, Pleuritic Pain, Sputum, Wheezing Cardiovascular: negative: chest pain, palpitations, orthopnea, paroxysmal nocturnal dyspnea, edema, light headedness, other Gastrointestinal: negative: Nausea, Vomiting, Abdominal Pain, Diarrhea, Constipation, Melena, Hematochezia, Other Genitourinary: negative: Dysuria, Frequency, Incontinence, Hematuria, Retention , Other Musculoskeletal: negative: Neck Pain, Shoulder Pain, Arm Pain, Back Pain, Hand Pain, Leg Pain, Foot Pain, Other Skin: negative: Rash, Lesions, Mannie, Bruising, Other Neurological: negative: Weakness, Numbness, Incoordination, Change in Speech, Confusion, Seizures, Other - Medications/Allergies Allergies/Adverse Reactions: Allergies Allergy/AdvReac Type Severity Reaction Status Date / Time Sulfa (Sulfonamide Allergy Verified 05/17/18 00:19 Antibiotics) Medications: Current Medications Acetaminophen (Tylenol) 650 mg PO Q4H PRN PRN Reason: Headache/Fever/Mild Pain (1-3) Last Admin: 05/18/18 05:53 Dose: 650 mg Acetaminophen/Codeine Phosphate (Tylenol #3) 1 tab PO Q4H PRN PRN Reason: Mild Pain (1-3) Albuterol/Ipratropium (Duoneb) 3 ml NEB [id number] PRN PRN Reason: SOB &/or Wheezing Atorvastatin Calcium (Lipitor) 20 mg PO HS REPLACED BY [facility] Last Admin: 05/18/18 22:15 Dose: 20 mg Benzonatate (Tessalon) 100 mg PO Q6H PRN PRN Reason: Cough Bisacodyl (Dulcolax) 10 mg PO DAILYPRN PRN PRN Reason: Constipation Bupropion HCl (Wellbutrin Sr) 300 mg PO DAILY REPLACED BY [facility] Last Admin: 05/19/18 08:43 Dose: 300 mg Calcium Carbonate (Tums) 1,000 mg PO Q4H PRN PRN Reason: Heartburn or Indigestion Ciprofloxacin (Cipro) 500 mg PO BID REPLACED BY [facility] Last Admin: 05/19/18 08:43 Dose: 500 mg Clonidine (Catapres) 0.1 mg PO Q4H PRN PRN Reason: SBP > 160____ Famotidine (Pepcid) 20 mg PO BID REPLACED BY [facility] Last Admin: 05/19/18 08:43 Dose: 20 mg Guaifenesin (Robitussin Sf) 200 mg PO Q4H PRN PRN Reason: Cough Hydralazine HCl (Apresoline) 10 mg SLOW IVP Q4H PRN PRN Reason: SBP > 180 and HR < 70 Sodium Chloride (Normal Saline 0.9%) 1,000 mls @ 100 mls/hr IV .Q10H REPLACED BY [facility] Last Admin: 05/19/18 10:46 Dose: Not Given Sodium Chloride (Normal Saline 0.9%) 200 mls @ 0 mls/hr IV ONE PRN PRN Reason: SBP < 90 Stop: 05/22/18 09:55 Sodium Chloride (Normal Saline 0.9%) 1,000 mls @ 100 mls/hr IV .Q10H REPLACED BY [facility] Stop: 05/19/18 15:00 Last Admin: 05/19/18 10:44 Dose: 1,000 mls Morphine Sulfate (Morphine) 2 mg SLOW IVP Q12H PRN PRN Reason: Severe Pain (7-10) Last Admin: 05/18/18 22:16 Dose: 2 mg Nitroglycerin (Nitrostat) 0.4 mg SL Q5MIN PRN PRN Reason: Chest Pain Prednisone (Prednisone) [facility] [place] Stop: 05/21/18 09:01 Last Admin: 05/19/18 08:44 Dose: 40 mg Pregabalin (Lyrica) 300 mg PO BID REPLACED BY [facility] Last Admin: 05/19/18 09:08 Dose: 300 mg Senna/Docusate Sodium (Senokot S) 2 tab PO BID PRN PRN Reason: Constipation Senna/Docusate Sodium (Senokot S) 2 tab PO BID PRN PRN Reason: Constipation Sodium Chloride (Flush - Normal Saline) 10 ml IVF Q12HR REPLACED BY [facility] Last Admin: 05/19/18 10:40 Dose: Not Given Sodium Chloride (Flush - Normal Saline) 10 ml IVF PRN PRN PRN Reason: Saline Flush Tramadol HCl (Ultram) 50 mg PO Q4H PRN PRN Reason: pain Last Admin: 05/18/18 12:39 Dose: 50 mg
[2018-05-19] MEDS ORDERED: Isoproterenol 0.2 MG/1 ML AMP ONE (14:21)
[2018-05-19] MEDS ORDERED: Lidocaine 1% w/Epinephrine 1:100K 20 ML VIAL ONE (14:40)
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
[2018-05-19] MEDS: Atorvastatin Calcium 20 MG TAB PO SCH (20:21)
[2018-05-19] MEDS: Cephalexin 250 MG CAP PO SCH (20:21)
[2018-05-19] MEDS: Morphine 4 MG/ML VIAL SLOW IVP PRN (20:23)
[2018-05-20] MEDS: Sodium Chloride 0.9% 1,000 ML IV SCH (08:42)
[2018-05-20] MEDS: Cephalexin 250 MG CAP PO SCH ×2 (08:43→15:23)
[2018-05-20] MEDS: predniSONE 20 MG TAB PO SCH (08:43)
[2018-05-20] MEDS: Pregabalin 75 MG CAP PO SCH (08:43)
[2018-05-20] MEDS: Bupropion 150 MG SR TAB PO SCH (08:43)
[2018-05-20] MEDS: Famotidine 20 MG TAB PO SCH (08:46)
[2018-05-20] MEDS: Morphine 4 MG/ML VIAL SLOW IVP PRN (10:08)
--- NOTE | 2018-05-20 11:28 | PDOC.CTH ---
Cardiology Progress Note - Subjective The pt seen and examined. No cardiac complaints. No overnight events. Questions and concerns were answered today. The pt voiced understanding and denied any more questions at this moment. - Objective Vital Signs Temp Pulse Resp BP Pulse Ox 05/20/18 08:00 98 05/20/18 07:37 97.7 F 62 16 114/56 L 98 05/20/18 04:00 98 F 65 16 127/65 96 05/20/18 03:27 94 L 05/20/18 00:00 97.8 F 67 16 119/61 93 L Weight 189 lb 8 oz 05/19/18 05/20/18 05/21/18 06:59 06:59 06:59 Intake Total 960 1830 236 Output Total 580 Balance 960 1250 236 - Physical Examination General/Neuro: alert & oriented x3 Neck: no JVD present Lungs: CTA Heart: RRR Abdomen: soft Extremities: other: (No edema) - Telemetry Telemetry Rhythm: SR - Labs Result Diagrams: 05/16/18 17:44 05/18/18 05:40 Troponin/CKMB Troponin I Less than 0.010 ng/mL (< 0.028) 05/17/18 14:37 - Assessment/Plan 1. S/p Syncope and collapse - s/p LINQ placement on 05/19/[address] Sands; 2. CAD with S/p LHC with 80% stenosis in Diag 1, 50% in prox LAD - Asymptomatic ; On Statin; Will start ASA 81mg; Not on Bblocker for now 2/2 hypotensive. 3. Hyperlidiemia - on Statin 4. COPD - stable with RA 5. Chronic hepatitis C 6. Lung Nodule 7. Chronic back pain MAR reviewed * Echo on 05/18/2018 showed EF 50-55%, grade I diastolic dysfunction, mild TR, NH, and MR * From Cardiac standpoint, the pt is stable to d/c home once other physicians are ok. * The pt will f/u with Dr Sands's office within 10 days for LINQ site check. The pt also will f/u with Dr Zelaya's office within 2wks for Cardiovascular management. Pt. seen and eval. by me. I agree with the A/P by the SLOT KEY PERSON. The site looks good after Linq placement. Agree with d/c. GJM Review of Systems - Review of Systems Constitutional: reports: no symptoms reported EENTM: reports: no symptoms reported Respiratory: reports: no symptoms reported Cardiac (ROS): reports: no symptoms reported ABD/GI: reports: no symptoms reported : reports: no symptoms reported Musculoskeletal: reports: no symptoms reported
[2018-05-20 11:33] VITALS: TEMP 98
[2018-05-20] MEDS ORDERED: Carvedilol 3.125 MG TAB PO SCH (12:15)
--- NOTE | 2018-05-20 13:13 | PRG ---
DATE OF SERVICE: 05/20/2018 SUBJECTIVE: Mr. Mcginnis is doing well and expects to go home today. OBJECTIVE: VITAL SIGNS: On exam, temperature 98.0, pulse 65, respirations 16, O2 saturation 98%, blood pressure 130/70. HEENT: Unremarkable. NECK: No adenopathy. No JVD. CHEST: Clear. CARDIAC: S1, S2. Regular. ABDOMEN: Soft. EXTREMITIES: No edema. ASSESSMENT: Cardiac syncope secondary to arrhythmia. PLAN: He is going home today with Cardiology clearance. He has no further pulmonary issues. Job ID: [id number]
[2018-05-20 15:22] VITALS: BP 127/76
--- NOTE | 2018-05-20 18:59 | EKG ---
Test Reason : SYNCOPE Blood Pressure : / mmHG Vent. Rate : 054 BPM Atrial Rate : 054 BPM P-R Int : 154 ms QRS Dur : 090 ms QT Int : 462 ms P-R-T Axes : 025 -04 017 degrees QTc Int : 438 ms Sinus bradycardia Otherwise normal ECG Confirmed by JAVIER TY MD ([id number]), editorial assistant YANDEL MORENO ([id number]) on 05/20/2018 6:59:07 PM Referred By: HARISH Confirmed By:JAVIER TY MD
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
[2018-05-21] MEDS ORDERED: Aspirin 81 mg Enteric Coated Tablet PO SCH (09:00)
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
== END 2018-05-20 18:35 | disposition home or self-care (01) | DRG 274 ==
LOC: ERS 16:25 → OBSVTOIN 21:39 → 2SE 21:39
PROVIDERS: ADMIT Internal Medicine; ATTEND Internal Medicine
PROC: 4A023N7 Measurement of Cardiac Sampling and Pressure, Left Heart, Percutaneous Approach (ICD-10-PCS; principal; 2018-05-19)
PROC: B2111ZZ Fluoroscopy of Multiple Coronary Arteries using Low Osmolar Contrast (ICD-10-PCS; 2018-05-19)
PROC: B2151ZZ Fluoroscopy of Left Heart using Low Osmolar Contrast (ICD-10-PCS; 2018-05-19)
PROC: 02K83ZZ Map Conduction Mechanism, Percutaneous Approach (ICD-10-PCS; 2018-05-19)
PROC: 0JH632Z Insertion of Monitoring Device into Chest Subcutaneous Tissue and Fascia, Percutaneous Approach (ICD-10-PCS; 2018-05-19)
PROC: 4A023FZ Measurement of Cardiac Rhythm, Percutaneous Approach (ICD-10-PCS; 2018-05-19)
PROC: 4A0234Z Measurement of Cardiac Electrical Activity, Percutaneous Approach (ICD-10-PCS; 2018-05-19)
DX: I48.92 Unspecified atrial flutter (principal); R55 Syncope and collapse; I10 Essential (primary) hypertension; J44.9 Chronic obstructive pulmonary disease, unspecified; I25.10 Atherosclerotic heart disease of native coronary artery without angina pectoris; I25.5 Ischemic cardiomyopathy; H81.20 Vestibular neuronitis, unspecified ear; I25.2 Old myocardial infarction; E78.5 Hyperlipidemia, unspecified; M54.9 Dorsalgia, unspecified; G89.29 Other chronic pain; R91.1 Solitary pulmonary nodule; B18.2 Chronic viral hepatitis C; M25.511 Pain in right shoulder; Z95.5 Presence of coronary angioplasty implant and graft; Z86.74 Personal history of sudden cardiac arrest; Z86.73 Personal history of transient ischemic attack (TIA), and cerebral infarction without residual deficits; Z87.01 Personal history of pneumonia (recurrent); F17.210 Nicotine dependence, cigarettes, uncomplicated; V57.5XXA Driver of pick-up truck or van injured in collision with fixed or stationary object in traffic accident, initial encounter; Y92.410 Unspecified street and highway as the place of occurrence of the external cause; Z88.2 Allergy status to sulfonamides
CPT/HCPCS: 33285; 36415; 70450; 70551; 71045; 71275; 72128; 76942; 80048; 80053; 81003; 84484; 85025; 85379; 93005; 93306; 93458; 93621; 93623; 93880; 94760; 99152; C1730; C1769; J0153; J1644; J1650; J2001; J2250; J2270; J2704; J3010; Q9967

== ENCOUNTER 2018-06-23 18:40 | Inpatient (IN) | payer MEDICARE, MEDICAID ==
[2018-06-23 19:21] LABS: #Basophils 0.1 thou/uL (0.0-0.2); #Eosinphils 0.1 thou/uL (0.0-0.7); #Lymphocytes 1.6 thou/uL (1.20-3.40); #Monocytes 0.5 thou/uL (0.11-0.59); #Neutrophils 6.3 thou/uL (1.40-6.50); %Basophils 0.6 % (0.0-1.0); %Eosinophils 1.4 % (0.0-10.0); %Lymphocytes 19.1 % (21.0-51.0); %Monocytes 5.8 % (0.0-10.0); %Neutrophils 73.2 % (42.0-75.0); Mean Corpuscular HGB CONC 33.6 g/dL (32.0-36.0); Mean Corpuscular Hemoglobin 31.6 pg (27.0-31.0); Mean Corpuscular Volume 94.1 fL (78.0-98.0); Mean Platelet Volume 8.4 fL (7.4-10.4); Platelet Count 148 thou/uL (130-400); RBC Distribution Width 11.7 % (11.5-14.5); White Blood Cell (WBC) Count 8.6 thou/uL (4.8-10.8)
[2018-06-23 19:40] LABS: ALT (SGPT) 28 U/L (8-55); AST (SGOT) 38 U/L (5-34); Albumin 4.1 g/dL (3.4-4.8); Alkaline Phosphatase 68 U/L (40-150); Anion Gap 12 mmol/L (10-20); BUN (Urea Nitrogen) 30 mg/dL (8.4-25.7); Bilirubin, Total 0.5 mg/dL (0.2-1.2); CK (CPK) 278 U/L (30-200); Calc. Creatinine Clearance 0 mL/min (70-130); Calcium 8.4 mg/dL (7.8-10.44); Carbon Dioxide 27 mmol/L (23-31); Chloride 107 mmol/L (98-107); Estimated GFR-MDRD 33; Globulin 3.4 g/dL (2.4-3.5); Potassium 4.2 mmol/L (3.5-5.1); Protein, Total 7.5 g/dL (5.8-8.1); Sodium 142 mmol/L (136-145)
[2018-06-23 19:45] LABS: Glucose 58 mg/dL (80-115)
--- NOTE | 2018-06-23 19:53 | RAD ---
PORTABLE CHEST ONE VIEW 06/23/18 at 7:21 p.m. HISTORY: Syncope and collapse. FINDINGS: Comparison made with exam of 05/17/18. The heart size is normal. The lungs are expanded without focal areas of consolidation, pneumothoraces or pleural effusions. IMPRESSION: No acute process. POS: [facility]
[2018-06-23 21:03] LABS: Bilirubin Negative (Negative); Blood, Urine Negative (Negative); Clarity CLEAR (Clear); Glucose, Urine (Dipstick) Negative (Negative); Leukocyte Negative (Negative); Nitrite Negative (Negative); Protein, Urine (Dipstick) Negative (Neg-Trace); Specific Gravity, Urine 1.013 (1.002-1.036); Urobilinogen 0.2 mg/dL (0.2-1.0); pH, Urine 5.5 (5.0-9.0)
--- NOTE | 2018-06-23 21:11 | RAD ---
LUMBAR SPINE THREE VIEWS: 06/23/18 HISTORY: Syncope, collapse, injury, back pain. FINDINGS/IMPRESSION: Comparison made with the exam of 03/18/17. Extensive postop changes in the lower lumbar and upper sacral spine are again seen with intact metall ic hardware. The metallic hardware shows no change in alignment or position. There is mild scoliosis of the lumbar spine. The compression of the superior end plate of the L1 vertebral body is stable. No acute fracture is seen. POS: [facility]
[2018-06-23] MEDS ORDERED: Acetaminophen 500 MG TAB ONE (22:33)
[2018-06-23 23:52] LABS: Anion Gap 12 mmol/L (10-20); BUN (Urea Nitrogen) 26 mg/dL (8.4-25.7); Calc. Creatinine Clearance 0 mL/min (70-130); Calcium 7.7 mg/dL (7.8-10.44); Carbon Dioxide 25 mmol/L (23-31); Chloride 111 mmol/L (98-107); Estimated GFR-MDRD 38; Glucose 145 mg/dL (80-115); Potassium 3.6 mmol/L (3.5-5.1); Sodium 144 mmol/L (136-145)
[2018-06-24] MEDS ORDERED: Morphine 4 MG/ML VIAL ONE (00:33)
[2018-06-24] MEDS ORDERED: Senokot S 8.6-50 MG TAB PO PRN (00:54)
[2018-06-24] MEDS ORDERED: HYDROcodone/Acetaminophen 5/325 mg Tablet PO PRN (00:54)
[2018-06-24] MEDS ORDERED: Acetaminophen 325 MG TAB PO PRN (00:54)
[2018-06-24 01:21] LABS: Troponin I Less than 0.010 ng/mL (< 0.028)
[2018-06-24 02:31] LABS: Amphetamine Not Detected (NotDetected); Barbiturates Screen Not Detected (NotDetected); Benzodiazepine Screen Not Detected (NotDetected); Cocaine Metabolite Screen Not Detected (NotDetected); Medtox Control Line Valid? VALID (VALID); Medtox Reader # READER 1; Methadone Not Detected (NotDetected); Methamphetamine Not Detected (NotDetected); Opiate Screen Not Detected (NotDetected); Oxycodone Screen Not Detected (NotDetected); Phencyclidine (PCP) Not Detected (NotDetected); THC/Cannabinoid Screen Detected (NotDetected); Tricyclic Screen Not Detected (NotDetected)
[2018-06-24] MEDS: Sodium Chloride 0.9% 1,000 ML IV SCH ×2 (03:31→14:59)
[2018-06-24 05:19] LABS: #Eosinphils 0.1 thou/uL (0.0-0.7); #Lymphocytes 1.9 thou/uL (1.20-3.40); #Monocytes 0.4 thou/uL (0.11-0.59); #Neutrophils 3.9 thou/uL (1.40-6.50); %Basophils 0.4 % (0.0-1.0); %Eosinophils 1.8 % (0.0-10.0); %Monocytes 6.2 % (0.0-10.0); %Neutrophils 61.6 % (42.0-75.0); Hemoglobin 12.4 g/dL (14.0-18.0); Mean Corpuscular HGB CONC 33.3 g/dL (32.0-36.0); Mean Corpuscular Hemoglobin 31.5 pg (27.0-31.0); Mean Corpuscular Volume 94.6 fL (78.0-98.0); Mean Platelet Volume 8.1 fL (7.4-10.4); Platelet Count 132 thou/uL (130-400); RBC Distribution Width 11.7 % (11.5-14.5); Red Blood Cell (RBC) Count 3.95 mill/uL (4.70-6.10); White Blood Cell (WBC) Count 6.3 thou/uL (4.8-10.8)
[2018-06-24] MEDS ORDERED: HYDROcodone/Acetaminophen 5/325 mg Tablet ONE (05:29)
[2018-06-24 05:32] LABS: ALT (SGPT) 24 U/L (8-55); AST (SGOT) 34 U/L (5-34); Alkaline Phosphatase 68 U/L (40-150); Anion Gap 11 mmol/L (10-20); BUN (Urea Nitrogen) 23 mg/dL (8.4-25.7); Bilirubin, Total 0.6 mg/dL (0.2-1.2); Calc. Creatinine Clearance 0 mL/min (70-130); Calcium 8.1 mg/dL (7.8-10.44); Carbon Dioxide 28 mmol/L (23-31); Chloride 107 mmol/L (98-107); Estimated GFR-MDRD 40; Globulin 3.4 g/dL (2.4-3.5); Glucose 78 mg/dL (80-115); Potassium 3.6 mmol/L (3.5-5.1); Protein, Total 7.4 g/dL (5.8-8.1); Sodium 142 mmol/L (136-145)
[2018-06-24] MEDS: HYDROcodone/Acetaminophen 5/325 mg Tablet PO PRN ×2 (05:35→18:22)
[2018-06-24 05:36] LABS: Troponin I Less than 0.010 ng/mL (< 0.028)
[2018-06-24] MEDS ORDERED: Famotidine 20 MG TAB ONE (10:42)
[2018-06-24] MEDS: Carvedilol 3.125 MG TAB PO SCH ×2 (10:48→17:31)
[2018-06-24] MEDS: Famotidine 20 MG TAB PO SCH ×2 (10:49→21:44)
[2018-06-24 17:22] VITALS: BMI 26.3
[2018-06-24] MEDS ORDERED: Pravastatin Sodium 40 MG TAB PO SCH (21:00)
--- NOTE | 2018-06-24 22:00 | PRG ---
DATE OF SERVICE: 06/24/2018 SUBJECTIVE: Mr. Adolfo Mcginnis is a 62-year-old male with past medical history significant for recent hospitalization at this facility on may 16 through May 20, 2018, after suffering a syncopal event. He underwent extensive cardiac and neurologic workup at that time, and was discharged after implantation of a [employer] LINQ loop recorder. The patient is being admitted for second syncopal event, which he suffered yesterday. The patient states that he was in his home in the kitchen with his daughter, when he felt that his muscle began to seize up, and then he lost consciousness before falling to the ground. He was admitted for further workup and treatment. Upon my interview this afternoon, the patient states that he has no chest pain, shortness of breath or dizziness at this time. He does complain of occasional muscle "twitching", but this is his only complaint at this time. He has had no nausea or vomiting. His appetite remains good. No dysuria. OBJECTIVE: VITAL SIGNS: Blood pressure 139/86, pulse is 55, and O2 saturation is 97% on room air. GENERAL: The patient is well-appearing, middle-aged gentleman, resting comfortably in bed. HEENT: Head is normocephalic. Mucous membranes are moist. Extraocular movements intact. NECK: Supple. No lymphadenopathy. No JVD. Trachea is midline. CV: S1 and S2. Regular rhythm, mildly bradycardic. No appreciable murmurs, rubs, or gallops. LUNGS: Regular respiratory rate and pattern. Clear to auscultation bilaterally. ABDOMEN: Positive bowel sounds. Soft, nontender. EXTREMITIES: No edema. Both lower extremities are warm and well perfused. SKIN: Warm and dry. No rashes or abrasions. NEUROLOGIC: Cranial nerves 2 through 12 are grossly intact. The patient is nonfocal. LABORATORY DATA: White blood cell count 6.3, hemoglobin 12.4, hematocrit 37.4, and platelets are 132. Sodium 142, potassium 3.6, chloride 107, carbon dioxide 28, anion gap 11, BUN 23, creatinine 1.76 which is down from 2.04. Troponin was negative x3. Urinalysis negative for urinary tract infection. Tox screen positive for cannabinoids. ASSESSMENT: 1. Repeat syncopal event with presyncope in form of muscle spasticity per the patient. ? myoclonic seizure activity 2. Sinus bradycardia with lowest heart rate of 38 per LINQ interrogation today-- which did not correlate with timing of recent event. 3. Coronary artery disease diagnosed at last hospitalization for left heart catheterization, with mild to moderate LAD stenosis estimated at 50% angiographically, 80% stenosis of a small first diagonal. 4. Diastolic dysfunction, preserved EF. 5. Chronic obstructive pulmonary disease. 6. Chronic hep C. 7. Acute on chronic renal insufficiency, improving. PLAN: Initially, the ED did want to perform a CTA of the head, although this was postponed in the setting of acute renal insufficiency. Cardiology has been consulted and will await their recommendations. It is possible that a dual chamber pacemaker will be deemed appropriate, although bradycardia does not correlate with recent event. May need to bring neurology on board. We will continue to monitor his electrolytes and kidney function closely. We will continue IV hydration. Continue aspirin. We will await further recommendations from Cardiology. Given the patient's numerous comorbidities and repeat syncopal event, he does meet inpatient criteria at this time. Care of this patient was discussed with Dr. Smith, who agrees with the above. Job ID: [id number] MTDD
--- NOTE | 2018-06-24 23:57 | CON ---
DATE OF CONSULTATION: HISTORY OF PRESENT ILLNESS: The patient is a 62-year-old gentleman who presents for evaluation after losing consciousness. The patient has a long history of coronary artery disease. He has previously suffered a myocardial infarction in May of 2016. He underwent emergent placement of a stent into his right coronary artery. The patient underwent a cardiac catheterization in 2017, was found to have no significant coronary artery disease. He was readmitted after having a syncopal episode last month. He underwent a cardiac catheterization and was found to have mild CAD and continued on medical therapy. The patient states that during the hospitalization, had a LINQ monitor placed. The patient had another episode where he once again lost consciousness.Yesterday , he states he had some left- sided chest discomfort. He had several other incidents where he felt lightheaded and weak. PAST MEDICAL HISTORY: 1. Coronary artery disease. 2. Hypertension. 3. Hepatitis C. 4. Dyslipidemia. PAST SURGICAL HISTORY: Knee surgery, back surgery. SOCIAL HISTORY: Former smoker. MEDICATIONS: See nursing list. ALLERGIES: SULFA DRUGS. REVIEW OF SYSTEMS: Ten-point system otherwise unremarkable. PHYSICAL EXAMINATION: GENERAL: This is an anxious gentleman with a blood pressure of 129/86. NECK: Showed no jugular venous distention. LUNGS: Clear to auscultation. HEART: Regular rate and rhythm. Normal S1, S2 with no murmurs. ABDOMEN: Nondistended. EXTREMITIES: Show no edema. VASCULAR: Radial pulses 2+. LABORATORY DATA: Sodium 142, potassium 3.6, chloride 107, bicarb 28, BUN 23, creatinine 1.7. Troponin less than 0.01. White blood cell count 6.3, hemoglobin 12.4, hematocrit 37.4, platelet 132. His EKG revealed him to have normal sinus rhythm with a normal ECG. IMPRESSION: 1. Syncope. 2. History of coronary artery disease. 3. History of percutaneous transluminal coronary angioplasty and stent placement. 4. Acute renal insufficiency. 5. Hypertension. 6. Dyslipidemia. This gentleman presents with another syncopal episode. We will have his LINQ interrogated. Further recommendation will follow. PLAN: 1. Restart aspirin. 2. Hold Coreg for possible bradycardia induced syncope. 3. EP followup. Job ID: [id number] [facility]
[2018-06-25] MEDS: HYDROcodone/Acetaminophen 5/325 mg Tablet PO PRN ×4 (04:00→21:01)
[2018-06-25] MEDS: Sodium Chloride 0.9% 1,000 ML IV SCH ×2 (04:00→15:11)
[2018-06-25 06:00] LABS: Anion Gap 13 mmol/L (10-20); BUN (Urea Nitrogen) 19 mg/dL (8.4-25.7); Calc. Creatinine Clearance 62 mL/min (70-130); Calcium 8.3 mg/dL (7.8-10.44); Carbon Dioxide 25 mmol/L (23-31); Chloride 105 mmol/L (98-107); Estimated GFR-MDRD 47; Glucose 125 mg/dL (80-115); Potassium 3.7 mmol/L (3.5-5.1); Sodium 139 mmol/L (136-145)
[2018-06-25] MEDS: Famotidine 20 MG TAB PO SCH ×2 (09:15→21:01)
[2018-06-25] MEDS: Aspirin 81 mg Enteric Coated Tablet PO SCH (09:15)
--- NOTE | 2018-06-25 11:30 | PDOC.PN ---
- Subjective Encounter Start Date: 06/25/18 Encounter Start Time: 11:29 Subjective: feels better.describes episodes of severe muscle jerks involving whole body -: lost consoiusness with last muscle spasm - Objective MAR Reviewed: Yes Vital Signs & Weight: Vital Signs (12 hours) Temp Pulse Resp BP BP Pulse Ox 06/25/18 09:15 94 L 06/25/18 08:02 97.5 F L 56 L 16 140/74 94 L 06/25/18 04:10 97.9 F 60 18 127/66 95 06/25/18 03:57 98.1 F 60 20 128/79 94 L 06/24/18 23:32 98.3 F 56 L 16 140/80 94 L Weight Weight 189 lb I&O: 06/24/18 06/25/18 06/26/18 06:59 06:59 06:59 Intake Total 1800 240 Output Total 1980 Balance -180 240 Result Diagrams: 06/24/18 05:03 06/25/18 04:41 Phys Exam - Physical Examination Constitutional: NAD HEENT: PERRLA, moist MMs, sclera anicteric, oral pharynx no lesions Neck: no nodes, no JVD, supple, full ROM Respiratory: no wheezing, no rales, no rhonchi, clear to auscultation bilateral Cardiovascular: RRR, no significant murmur, no rub Gastrointestinal: soft, non-tender, no distention, positive bowel sounds Musculoskeletal: no edema, pulses present Neurological: non-focal, normal sensation, moves all 4 limbs Psychiatric: normal affect, A&O x 3 Skin: no rash Dx/Plan (1) Syncope and collapse Code(s): R55 - SYNCOPE AND COLLAPSE Status: Acute Comment: LINQ recorder in place.cardiology following. BVB stopped due to bradycardia. EP to be consulted. (2) NAZ (acute kidney injury) Code(s): N17.9 - ACUTE KIDNEY FAILURE, UNSPECIFIED Status: Acute Comment: improving.Monitor (3) Anxiety disorder Code(s): F41.9 - ANXIETY DISORDER, UNSPECIFIED Status: Chronic Qualifiers: (4) CKD (chronic kidney disease) stage 3, GFR 30-59 ml/min Code(s): N18.3 - CHRONIC KIDNEY DISEASE, STAGE 3 (MODERATE) Status: Chronic (5) COPD (chronic obstructive pulmonary disease) Status: Chronic (6) Chronic back pain Code(s): M54.9 - DORSALGIA, UNSPECIFIED; G89.29 - OTHER CHRONIC PAIN Status: Chronic Comment: (7) Chronic hepatitis C Code(s): B18.2 - CHRONIC VIRAL HEPATITIS C Status: Chronic (8) GERD (gastroesophageal reflux disease) Code(s): K21.9 - GASTRO-ESOPHAGEAL REFLUX DISEASE WITHOUT ESOPHAGITIS Status: Chronic (9) Hyperlipidemia Code(s): E78.5 - HYPERLIPIDEMIA, UNSPECIFIED Status: Chronic Qualifiers: Comment: (10) Hypertension Code(s): I10 - ESSENTIAL (PRIMARY) HYPERTENSION Status: Chronic Qualifiers: - Plan DVT proph w/SCDs HD stable -: symptoms suggest possible myoclonus or seizures. -: will consult neurology. Case discussed w Dr. Henderson non destructive evaluation specialist -: cont ASA, statin . -: Walking program. Consult EP * . Review of Systems - Review of Systems Constitutional: malaise. negative: fever, chills, sweats, weakness, other Eyes: negative: Pain, Vision Change, Conjunctivae Inflammation, Eyelid Inflammation, Redness, Other ENT: negative: Ear Pain, Ear Discharge, Nose Pain, Nose Discharge, Nose Congestion, Mouth Pain, Mouth Swelling, Throat Pain, Throat Swelling, Other Respiratory: negative: Cough, Dry, Shortness of Breath, Hemoptysis, SOB with Excertion, Pleuritic Pain, Sputum, Wheezing Cardiovascular: negative: chest pain, palpitations, orthopnea, paroxysmal nocturnal dyspnea, edema, light headedness, other Gastrointestinal: negative: Nausea, Vomiting, Abdominal Pain, Diarrhea, Constipation, Melena, Hematochezia, Other Genitourinary: negative: Dysuria, Frequency, Incontinence, Hematuria, Retention , Other Musculoskeletal: negative: Neck Pain, Shoulder Pain, Arm Pain, Back Pain, Hand Pain, Leg Pain, Foot Pain, Other Skin: negative: Rash, Lesions, Mannie, Bruising, Other Neurological: Other. negative: Weakness, Numbness, Incoordination, Change in Speech, Confusion, Seizures - Medications/Allergies Allergies/Adverse Reactions: Allergies Allergy/AdvReac Type Severity Reaction Status Date / Time Sulfa (Sulfonamide Allergy Verified 06/24/18 14:34 Antibiotics) Medications: Current Medications Acetaminophen (Tylenol) 650 mg PO Q4H PRN PRN Reason: Headache/Fever/Mild Pain (1-3) Hydrocodone Bitart/Acetaminophen ([place] 5/325) 1 tab PO Q4H PRN PRN Reason: Moderate Pain (4-6) Hydrocodone Bitart/Acetaminophen ([place]umann 5/325) 2 tab PO Q4H PRN PRN Reason: Severe Pain (7-10) Last Admin: 06/25/18 09:15 Dose: 2 tab Alprazolam (Xanax) 0.5 mg PO BID [facility] Aspirin (Ecotrin) 81 mg PO DAILY [facility] Last Admin: 06/25/18 09:15 Dose: 81 mg Bupropion HCl (Wellbutrin Sr) 150 mg PO BID [facility] Famotidine (Pepcid) 20 mg PO BID [facility] Last Admin: 06/25/18 09:15 Dose: 20 mg Sodium Chloride (Normal Saline 0.9%) 1,000 mls @ 100 mls/hr IV .Q10H [facility] Last Admin: 06/25/18 04:00 Dose: 1,000 mls Levetiracetam 500 mg/ Device 100 mls @ 200 mls/hr IVPB BID [facility] Pantoprazole Sodium (Protonix) 40 mg PO DAILY [facility] Pravastatin Sodium (Pravachol) 80 mg PO HS [facility] Pregabalin (Lyrica) 300 mg PO BID [facility] Senna/Docusate Sodium (Senokot S) 2 tab PO BIDPRN PRN PRN Reason: Constipation Sodium Chloride (Flush - Normal Saline) 10 ml IVF PRN PRN PRN Reason: Saline Flush
[2018-06-25] MEDS: Pregabalin 75 MG CAP PO SCH (20:59)
[2018-06-25] MEDS: Bupropion 150 MG SR TAB PO SCH (20:59)
[2018-06-25] MEDS: Pravastatin Sodium 40 MG TAB PO SCH (21:00)
[2018-06-25] MEDS: ALPRAZolam 0.5 MG TAB PO SCH (21:01)
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
[2018-06-26] MEDS: Sodium Chloride 0.9% 1,000 ML IV SCH ×3 (03:06→21:17)
[2018-06-26] MEDS: HYDROcodone/Acetaminophen 5/325 mg Tablet PO PRN ×2 (03:09→09:03)
--- NOTE | 2018-06-26 07:17 | PDOC.PN ---
- Subjective Encounter Start Date: 06/26/18 Encounter Start Time: 10:10 Subjective: Patient reports less myoclonic jerking. [place] a little light headed once thi -: AM, no severe episodes like before he came into the hospital. - Objective MAR Reviewed: Yes Vital Signs & Weight: Vital Signs (12 hours) Temp Pulse Resp BP BP Pulse Ox 06/26/18 04:00 60 18 119/61 98 06/25/18 23:20 97.3 F L 61 20 133/72 95 06/25/18 20:00 95 06/25/18 19:28 98.1 F 55 L 16 161/72 H 95 Weight Weight 189 lb I&O: 06/25/18 06/26/18 06/27/18 06:59 06:59 06:59 Intake Total 1800 960 Output Total 1980 Balance -180 960 Result Diagrams: 06/24/18 05:03 06/26/18 07:40 Phys Exam - Physical Examination Constitutional: NAD HEENT: moist MMs Respiratory: no wheezing, no rales, no rhonchi Cardiovascular: RRR, no significant murmur Gastrointestinal: soft, positive bowel sounds Neurological: non-focal, moves all 4 limbs no myclonic jerking on exam currently Psychiatric: normal affect, A&O x 3 Dx/Plan (1) Syncope and collapse Code(s): R55 - SYNCOPE AND COLLAPSE Status: Acute Comment: LINQ recorder in place.cardiology following. BVB stopped due to bradycardia. EP to be consulted. (2) Myoclonic jerking Code(s): G25.3 - MYOCLONUS Status: Acute Comment: started on Keppra, EEG pending, needs CTA once GFR greater than 50 (3) NAZ (acute kidney injury) Code(s): N17.9 - ACUTE KIDNEY FAILURE, UNSPECIFIED Status: Acute Comment: improving. recheck (4) Anxiety disorder Code(s): F41.9 - ANXIETY DISORDER, UNSPECIFIED Status: Chronic Qualifiers: (5) CAD (coronary artery disease) Code(s): I25.10 - ATHSCL HEART DISEASE OF [place] CORONARY ARTERY W/O ANG PCTRS Status: Chronic Comment: (6) COPD (chronic obstructive pulmonary disease) Status: Chronic (7) Chronic back pain Code(s): M54.9 - DORSALGIA, UNSPECIFIED; G89.29 - OTHER CHRONIC PAIN Status: Chronic Comment: (8) Chronic hepatitis C Code(s): B18.2 - CHRONIC VIRAL HEPATITIS C Status: Chronic (9) Diastolic dysfunction Code(s): I51.89 - OTHER ILL-DEFINED HEART DISEASES Status: Chronic Comment: EF ok (10) GERD (gastroesophageal reflux disease) Code(s): K21.9 - GASTRO-ESOPHAGEAL REFLUX DISEASE WITHOUT ESOPHAGITIS Status: Chronic (11) Hyperlipidemia Code(s): E78.5 - HYPERLIPIDEMIA, UNSPECIFIED Status: Chronic Qualifiers: Comment: (12) Hypertension Code(s): I10 - ESSENTIAL (PRIMARY) HYPERTENSION Status: Chronic Qualifiers: - Plan cont current plan of care, out of bed/ambulate, DVT proph w/lovenox Appreciate Cardiology and Neurology input. Awaiting EP eval. * . - Discharge Day Encounter end time: 10:20
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
[2018-06-26 08:15] LABS: Anion Gap 12 mmol/L (10-20); BUN (Urea Nitrogen) 15 mg/dL (8.4-25.7); Calc. Creatinine Clearance 68 mL/min (70-130); Calcium 8.4 mg/dL (7.8-10.44); Carbon Dioxide 26 mmol/L (23-31); Chloride 106 mmol/L (98-107); Estimated GFR-MDRD 52; Glucose 91 mg/dL (80-115); Potassium 3.7 mmol/L (3.5-5.1); Sodium 140 mmol/L (136-145)
[2018-06-26] MEDS: ALPRAZolam 0.5 MG TAB PO SCH ×2 (08:39→21:15)
[2018-06-26] MEDS: Aspirin 81 mg Enteric Coated Tablet PO SCH (08:39)
[2018-06-26] MEDS: Pregabalin 75 MG CAP PO SCH ×2 (08:39→21:14)
[2018-06-26] MEDS: Bupropion 150 MG SR TAB PO SCH ×2 (08:39→21:16)
[2018-06-26] MEDS: Famotidine 20 MG TAB PO SCH ×2 (08:39→21:16)
[2018-06-26] MEDS: Enoxaparin Sodium 30 MG/0.3 ML SYRINGE SC SCH (08:47)
[2018-06-26] MEDS ORDERED: HYDROcodone/Acetaminophen 5/325 mg Tablet PO SCH (12:30)
[2018-06-26] MEDS ORDERED: Iopamidol 370 76% 100 ML VIAL ONE (13:40)
--- NOTE | 2018-06-26 15:02 | CT ---
CTA HEAD WITH AND WITHOUT CONTRAST: Multiple axial tomograms are obtained through the head without IV enhancement. This was followed by postcontrast imaging following angio protocol with multiplanar reconstruction and 3D postprocessing. INDICATION: Possible basilar tip aneurysm noted on recent MRI. COMPARISON: Comparison made to MRI of 05/17/2018. FINDINGS: NONCONTRAST CT HEAD: Ventricles have normal size and position. No mass, hemorrhage, or infarct. No acute finding seen on noncontrast head CT. CTA HEAD: The intracranial internal carotid arteries are patent. Mild atherosclerotic calcification in the cav ernous portion of both ICAs; however, no stenosis. Anterior cerebral arteries and middle cerebral arteries appear patent and symmetric. Basilar artery is identified. 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 This measures approximately 6 mm AP dimension in the axial plane. Both posterior cerebral arteries appear unremarkable. No other aneurysm identified. 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 POS: TPC
[2018-06-26] MEDS ORDERED: HYDROcodone/Acetaminophen 7.5/325 mg Tablet PO PRN (16:00)
[2018-06-26] MEDS: HYDROcodone/Acetaminophen 7.5/325 mg Tablet PO PRN ×2 (18:19→23:54)
--- NOTE | 2018-06-26 18:33 | PDOC.CTH ---
Cardiology Progress Note - Subjective He is doing well. - Objective Vital Signs Temp Pulse Resp BP BP BP Pulse Ox 06/26/18 15:26 97.4 F L 59 L 16 143/70 H 98 06/26/18 11:42 97.4 F L 69 20 130/94 H 06/26/18 08:39 99 06/26/18 07:52 97.4 F L 56 L 20 128/77 128/80 125/69 99 Weight 189 lb 06/25/18 06/26/18 06/27/18 06:59 06:59 06:59 Intake Total 1800 960 Output Total 1980 Balance -180 960 - Physical Examination General/Neuro: alert & oriented x3, NAD Neck: no JVD present Lungs: CTA, unlabored respirations Heart: RRR Abdomen: NT/ND Extremities: other: (no edema) - Telemetry Telemetry Rhythm: NSR - Labs Result Diagrams: 06/24/18 05:03 06/26/18 07:40 Troponin/CKMB Troponin I Less than 0.010 ng/mL (< 0.028) 06/24/18 05:03 - Assessment/Plan 1. Syncope/Seizure PLAN: - LINQ interrogation shows an episode of bradycardia HR in the low 40's upper 30 's. this was back in April. Nothing on monitoring in May to suggest tachy or erika arrhythmias that would cause him to syncopize in the last few days. No indication for PPM for now. - He seems high today, he denies doing any Marihuana today but he is very different than yesterday and laughs all the time. Nursing staff state he walked out of the unit and was found on the third floor. - Follow up in the office in 1 month. - No new recs. - Will sign off. Please call with any questions.
[2018-06-26] MEDS: Pravastatin Sodium 40 MG TAB PO SCH (21:16)
[2018-06-27 04:59] LABS: Anion Gap 11 mmol/L (10-20); BUN (Urea Nitrogen) 16 mg/dL (8.4-25.7); Calc. Creatinine Clearance 68 mL/min (70-130); Calcium 8.5 mg/dL (7.8-10.44); Carbon Dioxide 28 mmol/L (23-31); Chloride 108 mmol/L (98-107); Estimated GFR-MDRD 52; Glucose 98 mg/dL (80-115); Potassium 3.9 mmol/L (3.5-5.1); Sodium 143 mmol/L (136-145)
[2018-06-27] MEDS: Sodium Chloride 0.9% 1,000 ML IV SCH ×2 (05:10→17:14)
[2018-06-27] MEDS: Pregabalin 75 MG CAP PO SCH (08:16)
[2018-06-27] MEDS: Bupropion 150 MG SR TAB PO SCH (08:19)
[2018-06-27] MEDS: Enoxaparin Sodium 30 MG/0.3 ML SYRINGE SC SCH (08:19)
[2018-06-27] MEDS: Famotidine 20 MG TAB PO SCH (08:19)
[2018-06-27] MEDS: Aspirin 81 mg Enteric Coated Tablet PO SCH (08:19)
[2018-06-27] MEDS: ALPRAZolam 0.5 MG TAB PO SCH (08:19)
[2018-06-27] MEDS: HYDROcodone/Acetaminophen 7.5/325 mg Tablet PO PRN (08:23)
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
[2018-06-27] MEDS ORDERED: tiZANidine HCl 4 MG TAB PO PRN (09:32)
[2018-06-27 12:12] VITALS: BP 120/70; TEMP 97.3
--- NOTE | 2018-06-27 13:05 | PDOC.CTH ---
Cardiology Progress Note - Subjective No new issues or complaints. - Objective Vital Signs Temp Pulse Resp BP Pulse Ox 06/27/18 12:10 97.3 F L 61 16 120/70 97 06/27/18 07:41 99.0 F 72 18 119/74 97 Weight 189 lb 06/26/18 06/27/18 06/28/18 06:59 06:59 06:59 Intake Total 960 3280 Balance 960 3280 - Physical Examination General/Neuro: alert & oriented x3, NAD Neck: no JVD present Lungs: CTA, unlabored respirations Heart: RRR Abdomen: NT/ND Extremities: other: (no edema) - Telemetry Telemetry Rhythm: NSR - Labs Result Diagrams: 06/24/18 05:03 06/27/18 04:19 Troponin/CKMB Troponin I Less than 0.010 ng/mL (< 0.028) 06/24/18 05:03 - Assessment/Plan 1. Syncope/Seizure PLAN: - No major tachy or erika arrhythmias to account for his episode. - No indication for pacemaker or AV julisa blocking agents. - No change in regimen for now, - Will sign off, please call with any questions.
--- NOTE | 2018-06-27 13:28 | PDOC.PN ---
- Subjective Encounter Start Date: 06/27/18 Encounter Start Time: 13:26 Mr. Mcginnis was seen today in follow-up of Syncope. He does not ahve any complaints. - Objective MAR Reviewed: Yes Vital Signs & Weight: Vital Signs (12 hours) Temp Pulse Resp BP Pulse Ox 06/27/18 12:10 97.3 F L 61 16 120/70 97 06/27/18 07:41 99.0 F 72 18 119/74 97 Weight Weight 189 lb I&O: 06/26/18 06/27/18 06/28/18 06:59 06:59 06:59 Intake Total 960 3280 Balance 960 3280 Result Diagrams: 06/24/18 05:03 06/27/18 04:19 Phys Exam - Physical Examination HEENT: PERRLA Respiratory: no rales, no rhonchi, wheezing present, clear to auscultation bilateral Cardiovascular: RRR, no significant murmur, no rub Gastrointestinal: soft, non-tender, no distention, positive bowel sounds Musculoskeletal: no edema, pulses present Dx/Plan (1) Syncope Code(s): R55 - SYNCOPE AND COLLAPSE Status: Acute (2) Chronic back pain Code(s): M54.9 - DORSALGIA, UNSPECIFIED; G89.29 - OTHER CHRONIC PAIN Status: Chronic Comment: (3) Hypertension Code(s): I10 - ESSENTIAL (PRIMARY) HYPERTENSION Status: Chronic Qualifiers: - Plan * Syncope- work-up has been negative so far * HTN- blood pressure is stable * He is stable for discharge and close outpatient follow-up .
--- NOTE | 2018-06-27 15:22 | PDOC.CTH ---
Cardiology Progress Note - Subjective EP PROGRESS NOTE: 06/27/18 Seen as follow up for near syncope and ILR monitoring. He has been emotional today and is frustrated with no clear answers to explain his symptoms. He continues to have his neurologic symptoms. Denies heart racing, palpitations, chest pain/pressure, or passing out. - Objective Vital Signs Temp Pulse Resp BP Pulse Ox 06/27/18 12:10 97.3 F L 61 16 120/70 97 06/27/18 07:41 99.0 F 72 18 119/74 97 Weight 189 lb 06/26/18 06/27/18 06/28/18 06:59 06:59 06:59 Intake Total 960 3280 Balance 960 3280 - Physical Examination General/Neuro: alert & oriented x3, NAD Neck: carotid US brisk, no JVD present Lungs: CTA, unlabored respirations Heart: PMI normal, RRR Abdomen: NT/ND, soft - Telemetry Telemetry Rhythm: SR - Labs Result Diagrams: 06/24/18 05:03 06/27/18 04:19 Troponin/CKMB Troponin I Less than 0.010 ng/mL (< 0.028) 06/24/18 05:03 - Assessment/Plan 1. Implantable loop recorder -no arrhythmia events logged -no tele events correlating with neuro events/symptoms 2. Near syncope -unknown etiology, ruled out cardiogenic 3. Weakness, falls - per neuro - started on keppra for possible sz disorder. EP signing off. No arrhythmia issues seen. OK for DC. 3 month follow up requested.
--- NOTE | 2018-06-28 04:47 | DIS ---
DATE OF ADMISSION: 06/24/2018 DATE OF DISCHARGE: 06/27/2018 PRIMARY CARE PHYSICIAN: Dr. Macias. DISCHARGE DISPOSITION: Home. PRIMARY DISCHARGE DIAGNOSES: 1. Syncope. 2. Coronary artery disease. 3. Chronic obstructive pulmonary disease. 4. Alcohol abuse. 5. Marijuana abuse. 6. Chronic low back pain. 7. Hypertension. 8. Hyperlipidemia. DISCHARGE MEDICATIONS: 1. Tizanidine 4 mg p.o. t.i.d. as needed. 2. Coreg 3.125 mg twice daily. 3. Aspirin 81 mg daily. 4. Pregabalin 300 mg twice daily. 5. Pravastatin 80 mg at bedtime. 6. Omeprazole 40 mg daily. 7. Meloxicam 15 mg p.o. daily. 8. Buspirone 150 mg twice daily. 9. Alprazolam 0.5 mg one tablet twice a day. PROCEDURES DURING ADMISSION: The patient had a CT angiogram of the [place]. There is a basilar tip aneurysm of 6 mm, otherwise it was negative. The patient had an x-ray of the lumbar spine. There are extensive postop changes and compression of the superior endplate of the L1 vertebral body. CODE STATUS: Full code. ALLERGIES: TO SULFA. HOSPITAL COURSE: Mr. Mcginnis is a pleasant 62-year-old gentleman who was admitted to the hospital after having a syncopal episode. He was evaluated by Cardiology as well as Neurology and Electrophysiology. There was no appreciable etiology for the syncopal episode. It is noted that he does have a history of chronic low back pain and takes multiple sedating medications for this including hydrocodone and Zanaflex and also his urine drug screen was positive for marijuana. It is possible that the syncope could have been related to polypharmacy and illicit drug use. With some combination of mild dehydration as his creatinine was slightly elevated on admission as well. The patient remained stable during his hospital stay and was able to be discharged home on 06/27/2018. Job ID: [id number]
--- NOTE | 2018-06-28 08:50 | EEG ---
Referring Physician: Fady SAUL EEG # [id number] TEST TYPE: ROUTINE PORTABLE INPATIENT REPORT: AN EEG USING THE INTERNATIONAL TEN-TWENTY SYSTEM OF ELECTRODE PLACEMENT WAS PERFORMED. The waking background is a medium amplitude 9 hertz Alpha frequency. The patient became drowsy, but no sleep was seen. Photic stimulation and hyperventilation was unremarkable. No epileptiform features were present, IMPRESSION: THIS IS A NORMAL AWAKE EEG. Bonsai Culturist: ZAC Human Resource Management Instructor: [email or web address].[email or web address]
== END 2018-06-27 20:53 | disposition home or self-care (01) | DRG 918 ==
LOC: ERS 18:40 → OBSVTOIN 06-24 00:11 → ERHOLD 06-24 00:11 → 2SW 06-24 14:04
PROVIDERS: ADMIT Hospitalist; ATTEND Hospitalist
DX: T40.7X1A Poisoning by cannabis (derivatives), accidental (unintentional), initial encounter (principal); N17.9 Acute kidney failure, unspecified; R55 Syncope and collapse; E11.22 Type 2 diabetes mellitus with diabetic chronic kidney disease; F17.210 Nicotine dependence, cigarettes, uncomplicated; J44.9 Chronic obstructive pulmonary disease, unspecified; I25.10 Atherosclerotic heart disease of native coronary artery without angina pectoris; B18.2 Chronic viral hepatitis C; E78.5 Hyperlipidemia, unspecified; R00.1 Bradycardia, unspecified; I12.9 Hypertensive chronic kidney disease with stage 1 through stage 4 chronic kidney disease, or unspecified chronic kidney disease; N18.3 Chronic kidney disease, stage 3 (moderate); F41.9 Anxiety disorder, unspecified; M54.9 Dorsalgia, unspecified; G25.2 Other specified forms of tremor; G25.3 Myoclonus; I51.89 Other ill-defined heart diseases; F12.10 Cannabis abuse, uncomplicated; E86.0 Dehydration; Z88.2 Allergy status to sulfonamides; Z86.73 Personal history of transient ischemic attack (TIA), and cerebral infarction without residual deficits; Z90.49 Acquired absence of other specified parts of digestive tract; Z95.5 Presence of coronary angioplasty implant and graft; Z79.82 Long term (current) use of aspirin; Z79.899 Other long term (current) drug therapy
CPT/HCPCS: 36415; 36416; 70496; 71045; 72100; 80048; 80053; 80306; 81003; 82550; 83880; 84484; 85025; 93005; 95816; 95819; 96361; 96374; J1650; J1953; J2270

== ENCOUNTER 2018-07-08 22:19 | Emergency (ER) | payer MEDICARE, MEDICAID ==
[2018-07-08 23:26] LABS: #Basophils 0.1 thou/uL (0.0-0.2); #Eosinphils 0.3 thou/uL (0.0-0.7); #Lymphocytes 2.1 thou/uL (1.20-3.40); #Monocytes 0.6 thou/uL (0.11-0.59); #Neutrophils 3.9 thou/uL (1.40-6.50); %Basophils 1.3 % (0.0-1.0); %Eosinophils 4.5 % (0.0-10.0); %Lymphocytes 29.9 % (21.0-51.0); %Monocytes 8.7 % (0.0-10.0); %Neutrophils 55.6 % (42.0-75.0); Hemoglobin 12.2 g/dL (14.0-18.0); Mean Corpuscular HGB CONC 34.5 g/dL (32.0-36.0); Mean Corpuscular Hemoglobin 32.1 pg (27.0-31.0); Mean Corpuscular Volume 93.1 fL (78.0-98.0); Mean Platelet Volume 7.9 fL (7.4-10.4); Platelet Count 161 thou/uL (130-400); RBC Distribution Width 11.9 % (11.5-14.5); Red Blood Cell (RBC) Count 3.79 mill/uL (4.70-6.10)
--- NOTE | 2018-07-08 23:44 | CT ---
Exam: Head CT without contrast HISTORY: Altered mental status COMPARISON: 05/16/2018 FINDINGS: Hemorrhage: No intraparenchymal hemorrhage or extra-axial hematoma. Brain parenchyma: Cortical zuleta-white matter differentiation is preserved. No mass effect or midline shift. Basilar cisterns are patent Ventricular system: Ventricles and sulci are patent and symmetric. Calvarium: Intact. Sinuses and mastoid air cells: Partial opacification of the paranasal sinuses. Partial opacification of the inferior right mastoid air cells, unchanged. IMPRESSION: 1. No acute intracranial process. 2. Chronic opacification of the inferior right mastoid air cells. Possible acute mild paranasal sinus disease.
[2018-07-08 23:48] LABS: Acetaminophen Less than 6.0 mcg/mL (10.0-30.0); Alcohol Less than 10 mg/dL (Less than 10); Salicylate Less than 8.0 mg/dL (15.0-30.0)
[2018-07-08 23:50] LABS: ALT (SGPT) 30 U/L (8-55); AST (SGOT) 36 U/L (5-34); Albumin 3.9 g/dL (3.4-4.8); Alkaline Phosphatase 90 U/L (40-150); Anion Gap 13 mmol/L (10-20); BUN (Urea Nitrogen) 17 mg/dL (8.4-25.7); Bilirubin, Total 0.3 mg/dL (0.2-1.2); Calc. Creatinine Clearance 0 mL/min (70-130); Calcium 8.6 mg/dL (7.8-10.44); Carbon Dioxide 28 mmol/L (23-31); Chloride 105 mmol/L (98-107); Estimated GFR-MDRD 63; Globulin 3.2 g/dL (2.4-3.5); Glucose 80 mg/dL (80-115); Potassium 3.5 mmol/L (3.5-5.1); Protein, Total 7.1 g/dL (5.8-8.1); Sodium 142 mmol/L (136-145)
[2018-07-08] MEDS ORDERED: Lorazepam 1 MG TAB ONE (23:58)
[2018-07-08] MEDS ORDERED: HYDROcodone/Acetaminophen 5/325 mg Tablet ONE (23:58)
[2018-07-09 01:43] LABS: Amphetamine Not Detected (NotDetected); Barbiturates Screen Not Detected (NotDetected); Benzodiazepine Screen Not Detected (NotDetected); Cocaine Metabolite Screen Not Detected (NotDetected); Medtox Control Line Valid? VALID (VALID); Medtox Reader # READER 4; Methadone Not Detected (NotDetected); Methamphetamine Not Detected (NotDetected); Opiate Screen Not Detected (NotDetected); Oxycodone Screen Not Detected (NotDetected); Phencyclidine (PCP) Not Detected (NotDetected); THC/Cannabinoid Screen Detected (NotDetected); Tricyclic Screen Not Detected (NotDetected)
[2018-07-09] MEDS ORDERED: Lorazepam 1 MG TAB ONE (02:30)
== END 2018-07-09 06:46 | disposition home or self-care (01) ==
LOC: ERS 22:19
DX: F41.9 Anxiety disorder, unspecified (principal); G89.29 Other chronic pain; M54.9 Dorsalgia, unspecified; E11.9 Type 2 diabetes mellitus without complications; I10 Essential (primary) hypertension; I25.2 Old myocardial infarction; F17.210 Nicotine dependence, cigarettes, uncomplicated; Z79.899 Other long term (current) drug therapy
CPT/HCPCS: 36415; 70450; 80053; 80306; 80307; 84443; 85025

== ENCOUNTER 2020-07-12 03:52 | Inpatient (IN) | payer MEDICARE, MEDICAID ==
[2020-07-12] MEDS ORDERED: Morphine 4 MG/ML VIAL ONE (04:17)
[2020-07-12] MEDS ORDERED: Ondansetron PF 4 MG/2 ML Vial ONE (04:17)
[2020-07-12] MEDS ORDERED: Lorazepam 2 MG/ML VIAL ONE (04:35)
[2020-07-12] MEDS ORDERED: Dextrose 5% in Water 1,000 ML IV PRN (06:59)
[2020-07-12] MEDS ORDERED: Dextrose 50% Abboject 50 ML SYRINGE SLOW IVP PRN (06:59)
[2020-07-12] MEDS ORDERED: hydrALAZINE 20 MG/ML VIAL SLOW IVP PRN (06:59)
[2020-07-12] MEDS ORDERED: Promethazine HCl 25 MG/ML VIAL IM PRN (06:59)
[2020-07-12] MEDS ORDERED: Ondansetron PF 4 MG/2 ML Vial IVP PRN (06:59)
[2020-07-12] MEDS ORDERED: traMADol HCl 50 MG TAB PO PRN (07:05)
[2020-07-12 07:26] LABS: #Lymphocytes 1.3 thou/uL (1.20-3.40); #Monocytes 0.5 thou/uL (0.11-0.59); #Neutrophils 6.8 thou/uL (1.40-6.50); %Basophils 0.4 % (0.0-1.0); %Eosinophils 0.6 % (0.0-10.0); %Monocytes 5.3 % (0.0-10.0); %Neutrophils 78.8 % (42.0-75.0); Hemoglobin 15.6 g/dL (14.0-18.0); Mean Corpuscular HGB CONC 34.2 g/dL (32.0-36.0); Mean Corpuscular Volume 96.4 fL (78.0-98.0); Mean Platelet Volume 7.6 fL (7.4-10.4); Platelet Count 200 thou/uL (130-400); RBC Distribution Width 12.5 % (11.5-14.5); Red Blood Cell (RBC) Count 4.73 mill/uL (4.70-6.10); White Blood Cell (WBC) Count 8.7 thou/uL (4.8-10.8)
[2020-07-12 07:46] LABS: Anion Gap 14 mmol/L (10-20); BUN (Urea Nitrogen) 9 mg/dL (8.4-25.7); Calc. Creatinine Clearance 0 mL/min (70-130); Calcium 8.8 mg/dL (7.8-10.44); Carbon Dioxide 26 mmol/L (23-31); Chloride 102 mmol/L (98-107); Glucose 109 mg/dL (80-115); Magnesium 1.2 mg/dL (1.6-2.6); Phosphorus 3.5 mg/dL (2.3-4.7); Potassium 3.9 mmol/L (3.5-5.1); Sodium 138 mmol/L (136-145)
[2020-07-12] MEDS ORDERED: Famotidine 20 MG TAB ONE (08:09)
[2020-07-12] MEDS: Famotidine 20 MG TAB PO SCH (09:41)
[2020-07-12] MEDS: Polyethylene Glycol 3350 17 GM Packet PO SCH (09:41)
[2020-07-12] MEDS: Senokot S 8.6-50 MG TAB PO SCH ×2 (09:42→21:25)
[2020-07-12] MEDS ORDERED: Potassium Phosphate 15 MMOL, Magnesium Sulfate 4 GM in Sodium Chloride 0.9% 250 ML 250 ML IVPB SCH (10:30)
[2020-07-12] MEDS ORDERED: Acetaminophen 500 MG TAB ONE (11:00)
[2020-07-12] MEDS: Acetaminophen 500 MG TAB PO SCH ×2 (11:05→19:12)
[2020-07-12] MEDS ORDERED: Acetaminophen/Codeine 30-300mg Tablet PO SCH (11:15)
[2020-07-12] MEDS ORDERED: Iopamidol-370 76% 500 ML 1 ML ONE (11:43)
[2020-07-12] MEDS ORDERED: Magnevist 469MG/ML 20 ML VIAL ONE (11:51)
[2020-07-12 12:45] VITALS: BMI 26.2
[2020-07-12] MEDS: Oxazepam 10 MG CAP PO SCH ×2 (13:23→21:26)
[2020-07-12] MEDS ORDERED: Aspirin 325 mg Enteric Coated Tablet PO SCH (21:20)
[2020-07-13] MEDS: Acetaminophen 500 MG TAB PO SCH ×3 (01:09→11:27)
[2020-07-13] MEDS: Oxazepam 10 MG CAP PO SCH ×2 (04:27→11:27)
[2020-07-13 05:43] LABS: #Eosinphils 0.2 thou/uL (0.0-0.7); #Lymphocytes 1.9 thou/uL (1.20-3.40); #Monocytes 0.5 thou/uL (0.11-0.59); #Neutrophils 5.5 thou/uL (1.40-6.50); %Basophils 0.5 % (0.0-1.0); %Eosinophils 2.2 % (0.0-10.0); %Lymphocytes 22.9 % (21.0-51.0); %Neutrophils 68.4 % (42.0-75.0); Hemoglobin 14.5 g/dL (14.0-18.0); Mean Corpuscular HGB CONC 33.4 g/dL (32.0-36.0); Mean Corpuscular Volume 95.8 fL (78.0-98.0); Mean Platelet Volume 7.9 fL (7.4-10.4); Platelet Count 194 thou/uL (130-400); RBC Distribution Width 12.7 % (11.5-14.5); Red Blood Cell (RBC) Count 4.52 mill/uL (4.70-6.10); White Blood Cell (WBC) Count 8.1 thou/uL (4.8-10.8)
[2020-07-13 06:14] LABS: Anion Gap 12 mmol/L (10-20); BUN (Urea Nitrogen) 6 mg/dL (8.4-25.7); Calc. Creatinine Clearance 110 mL/min (70-130); Calcium 8.2 mg/dL (7.8-10.44); Carbon Dioxide 26 mmol/L (23-31); Chloride 100 mmol/L (98-107); Glucose 87 mg/dL (80-115); Magnesium 1.8 mg/dL (1.6-2.6); Phosphorus 2.6 mg/dL (2.3-4.7); Potassium 3.4 mmol/L (3.5-5.1); Sodium 135 mmol/L (136-145)
[2020-07-13 08:14] VITALS: TEMP 98.5
[2020-07-13] MEDS ORDERED: Potassium Chloride 20 MEQ TAB PO SCH (08:15)
[2020-07-13] MEDS ORDERED: Aspirin 325 MG TAB PO SCH ×2 (09:00)
[2020-07-13] MEDS ORDERED: Thiamine 100 MG TAB PO SCH (09:00)
[2020-07-13] MEDS ORDERED: Multivitamin W/ Minerals 1 TAB PO SCH (09:00)
[2020-07-13] MEDS ORDERED: Folic Acid 1 MG TAB PO SCH (09:00)
[2020-07-13] MEDS: Famotidine 20 MG TAB PO SCH (09:29)
[2020-07-13] MEDS: Senokot S 8.6-50 MG TAB PO SCH (09:29)
[2020-07-13] MEDS: Polyethylene Glycol 3350 17 GM Packet PO SCH (09:29)
[2020-07-13 11:32] VITALS: BP 113/79
== END 2020-07-13 13:45 | disposition home or self-care (01) | DRG 84 ==
LOC: ERS 03:52 → ERHOLD 05:00 → IMCU/EMU 11:50 → SURG A 21:14
PROVIDERS: ADMIT Specialist; ATTEND Specialist
DX: S02.119A Unspecified fracture of occiput, initial encounter for closed fracture (principal); S06.379A Contusion, laceration, and hemorrhage of cerebellum with loss of consciousness of unspecified duration, initial encounter; J44.9 Chronic obstructive pulmonary disease, unspecified; I25.10 Atherosclerotic heart disease of native coronary artery without angina pectoris; W19.XXXA Unspecified fall, initial encounter; I25.2 Old myocardial infarction; Z86.19 Personal history of other infectious and parasitic diseases; E78.5 Hyperlipidemia, unspecified; G89.29 Other chronic pain; Z95.5 Presence of coronary angioplasty implant and graft; Z96.652 Presence of left artificial knee joint; F17.210 Nicotine dependence, cigarettes, uncomplicated; Z88.2 Allergy status to sulfonamides; E83.42 Hypomagnesemia; I72.5 Aneurysm of other precerebral arteries; I08.1 Rheumatic disorders of both mitral and tricuspid valves
CPT/HCPCS: 36415; 36416; 70498; 70553; 80048; 83735; 84100; 85025; 93306; 96374; 96375; A9579; J2060; J2270; J2405; J3475; J7050; Q9967

== ENCOUNTER 2020-07-16 13:33 | Inpatient (IN) | payer MEDICARE, MEDICAID ==
[2020-07-16] MEDS ORDERED: diphenhydrAMINE 50 MG/ML VIAL ONE (13:50)
[2020-07-16] MEDS ORDERED: Metoclopramide HCl 10 MG/2 ML VIAL ONE (13:50)
[2020-07-16] MEDS ORDERED: Ondansetron PF 4 MG/2 ML Vial ONE (13:59)
[2020-07-16 14:15] LABS: Hemoglobin 19.5 g/dL (14.0-18.0); Mean Corpuscular HGB CONC 34.1 g/dL (32.0-36.0); Mean Corpuscular Hemoglobin 32.3 pg (27.0-31.0); Mean Corpuscular Volume 94.6 fL (78.0-98.0); Mean Platelet Volume 7.4 fL (7.4-10.4); Platelet Count 295 thou/uL (130-400); RBC Distribution Width 12.9 % (11.5-14.5); Red Blood Cell (RBC) Count 6.05 mill/uL (4.70-6.10)
[2020-07-16 14:17] LABS: #Basophils 0.1 thou/uL (0.0-0.2); #Lymphocytes 1.4 thou/uL (1.20-3.40); #Monocytes 0.7 thou/uL (0.11-0.59); #Neutrophils 10.9 thou/uL (1.40-6.50); %Basophils 0.4 % (0.0-1.0); %Eosinophils 0.2 % (0.0-10.0); %Lymphocytes 10.6 % (21.0-51.0); %Neutrophils 83.8 % (42.0-75.0)
[2020-07-16 14:22] LABS: INR-International Normal Ratio 0.9; PTT 31.4 sec (22.9-36.1)
[2020-07-16 15:08] LABS: Albumin 4.9 g/dL (3.4-4.8)
[2020-07-16 15:09] LABS: Chloride 93 mmol/L (98-107); Potassium 4.7 mmol/L (3.5-5.1); Sodium 131 mmol/L (136-145)
[2020-07-16 15:10] LABS: Calcium 10.5 mg/dL (7.8-10.44)
[2020-07-16 15:11] LABS: Globulin 4.4 g/dL (2.4-3.5); Glucose 123 mg/dL (80-115); Protein, Total 9.3 g/dL (5.8-8.1)
[2020-07-16 15:12] LABS: Anion Gap 19 mmol/L (10-20); Bilirubin, Total 0.7 mg/dL (0.2-1.2); Carbon Dioxide 24 mmol/L (23-31)
[2020-07-16 15:13] LABS: Alkaline Phosphatase 92 U/L (40-110)
[2020-07-16 15:14] LABS: Calc. Creatinine Clearance 0 mL/min (70-130)
[2020-07-16 15:15] LABS: BUN (Urea Nitrogen) 13 mg/dL (8.4-25.7)
[2020-07-16 15:16] LABS: ALT (SGPT) 20 U/L (8-55); AST (SGOT) 29 U/L (5-34)
[2020-07-16] MEDS ORDERED: Morphine 4 MG/ML VIAL ONE (15:46)
[2020-07-16] MEDS ORDERED: Acetaminophen 500 MG TAB ONE (17:09)
[2020-07-16] MEDS ORDERED: Dextrose 5% in Water 1,000 ML IV PRN (19:21)
[2020-07-16] MEDS ORDERED: Dextrose 50% Abboject 50 ML SYRINGE SLOW IVP PRN (19:21)
[2020-07-16] MEDS: traMADol HCl 50 MG TAB PO PRN (21:22)
[2020-07-16] MEDS: Acetaminophen 500 MG TAB PO SCH (23:26)
[2020-07-16] MEDS: Famotidine 20 MG TAB PO SCH (23:27)
[2020-07-16] MEDS: Carvedilol 3.125 MG TAB PO SCH (23:27)
[2020-07-16 23:40] VITALS: BMI 27.1
[2020-07-16] MEDS: Ondansetron ODT 4 MG TAB PO PRN (23:50)
[2020-07-17] MEDS: Acetaminophen 500 MG TAB PO SCH ×4 (05:25→23:39)
[2020-07-17 05:39] LABS: #Eosinphils 0.1 thou/uL (0.0-0.7); #Lymphocytes 1.3 thou/uL (1.20-3.40); #Monocytes 0.7 thou/uL (0.11-0.59); #Neutrophils 8.7 thou/uL (1.40-6.50); %Basophils 0.2 % (0.0-1.0); %Eosinophils 0.7 % (0.0-10.0); %Lymphocytes 12.4 % (21.0-51.0); %Monocytes 6.7 % (0.0-10.0); Hemoglobin 17.2 g/dL (14.0-18.0); Mean Corpuscular HGB CONC 33.9 g/dL (32.0-36.0); Mean Corpuscular Hemoglobin 32.5 pg (27.0-31.0); Mean Corpuscular Volume 95.8 fL (78.0-98.0); Mean Platelet Volume 7.5 fL (7.4-10.4); Platelet Count 253 thou/uL (130-400); RBC Distribution Width 12.8 % (11.5-14.5); Red Blood Cell (RBC) Count 5.28 mill/uL (4.70-6.10); White Blood Cell (WBC) Count 10.8 thou/uL (4.8-10.8)
[2020-07-17 05:49] LABS: INR-International Normal Ratio 0.9; PTT 29.3 sec (22.9-36.1); Prothrombin Time 12.8 sec (12.0-14.7)
[2020-07-17 06:01] LABS: Anion Gap 15 mmol/L (10-20); BUN (Urea Nitrogen) 13 mg/dL (8.4-25.7); Calc. Creatinine Clearance 118 mL/min (70-130); Calcium 9.6 mg/dL (7.8-10.44); Carbon Dioxide 22 mmol/L (23-31); Chloride 97 mmol/L (98-107); Glucose 115 mg/dL (80-115); Potassium 4.1 mmol/L (3.5-5.1); Sodium 130 mmol/L (136-145)
[2020-07-17] MEDS: Pregabalin 75 MG CAP PO SCH ×4 (08:49→20:05)
[2020-07-17] MEDS: Ondansetron ODT 4 MG TAB PO PRN ×2 (08:49→17:52)
[2020-07-17] MEDS: traMADol HCl 50 MG TAB PO PRN (08:50)
[2020-07-17] MEDS: Carvedilol 3.125 MG TAB PO SCH (08:51)
[2020-07-17] MEDS: Famotidine 20 MG TAB PO SCH (08:51)
[2020-07-17] MEDS ORDERED: Amlodipine 5 MG TAB PO SCH (09:00)
[2020-07-17] MEDS: Promethazine HCl 12.5 MG in Sodium Chloride 0.9% 50 ML IVPB PRN (13:15)
[2020-07-17] MEDS ORDERED: hydrALAZINE 20 MG/ML VIAL SLOW IVP PRN (14:35)
[2020-07-17] MEDS: traMADol HCl 50 MG TAB PO SCH ×2 (15:11→20:04)
[2020-07-17] MEDS: Sodium Chloride 1 GM TAB PO SCH ×2 (17:52→23:40)
[2020-07-17] MEDS: Sodium Chloride 0.9% 1,000 ML IV SCH (17:52)
[2020-07-17 18:32] LABS: SARS-CoV-2 PCR NAA for Saliva Not Detected (NotDetected)
[2020-07-17] MEDS: Amlodipine 5 MG TAB PO SCH (20:06)
[2020-07-18] MEDS: traMADol HCl 50 MG TAB PO SCH ×4 (02:47→20:08)
[2020-07-18] MEDS: Ondansetron ODT 4 MG TAB PO PRN ×3 (02:51→16:16)
[2020-07-18] MEDS: Sodium Chloride 0.9% 1,000 ML IV SCH ×2 (03:55→16:17)
[2020-07-18] MEDS: Acetaminophen 500 MG TAB PO SCH ×4 (05:17→23:40)
[2020-07-18] MEDS: Amlodipine 5 MG TAB PO SCH ×2 (08:51→20:09)
[2020-07-18] MEDS: Sodium Chloride 1 GM TAB PO SCH ×3 (08:51→23:40)
[2020-07-18] MEDS: Pregabalin 75 MG CAP PO SCH ×3 (08:51→20:09)
[2020-07-18] MEDS ORDERED: Scopolamine 1.5 mg/72 hour Patch TD SCH (11:00)
[2020-07-18] MEDS: Dexamethasone 4 mg/ml Vial SLOW IVP SCH ×3 (11:23→23:40)
[2020-07-18] MEDS ORDERED: traMADol HCl 50 MG TAB PO PRN (14:52)
[2020-07-18] MEDS: Promethazine HCl 12.5 MG in Sodium Chloride 0.9% 50 ML IVPB PRN (20:43)
[2020-07-19] MEDS: traMADol HCl 50 MG TAB PO SCH ×4 (02:06→20:17)
[2020-07-19] MEDS: Sodium Chloride 0.9% 1,000 ML IV SCH ×3 (02:07→20:19)
[2020-07-19] MEDS: Dexamethasone 4 mg/ml Vial SLOW IVP SCH (05:01)
[2020-07-19] MEDS ORDERED: Dexamethasone 4 MG TAB PO SCH (05:30)
[2020-07-19] MEDS: Acetaminophen 500 MG TAB PO SCH ×4 (05:34→23:30)
[2020-07-19] MEDS: Sodium Chloride 1 GM TAB PO SCH ×3 (08:25→23:30)
[2020-07-19] MEDS: Pregabalin 75 MG CAP PO SCH ×3 (08:26→20:16)
[2020-07-19] MEDS: Amlodipine 5 MG TAB PO SCH ×2 (08:26→20:17)
[2020-07-19] MEDS: Dexamethasone 4 MG TAB PO SCH ×2 (14:45→20:17)
[2020-07-20] MEDS: traMADol HCl 50 MG TAB PO SCH ×3 (03:01→14:32)
[2020-07-20] MEDS: Acetaminophen 500 MG TAB PO SCH ×2 (05:11→11:14)
[2020-07-20] MEDS: Sodium Chloride 0.9% 1,000 ML IV SCH ×2 (05:48→17:20)
[2020-07-20] MEDS: Sodium Chloride 1 GM TAB PO SCH ×2 (08:05→17:20)
[2020-07-20] MEDS: Pregabalin 75 MG CAP PO SCH ×2 (08:06→14:31)
[2020-07-20] MEDS: Amlodipine 5 MG TAB PO SCH (08:07)
[2020-07-20] MEDS: Dexamethasone 4 MG TAB PO SCH (08:07)
[2020-07-20 15:20] VITALS: BP 134/78; TEMP 97.8
== END 2020-07-20 17:00 | disposition home or self-care (01) | DRG 103 ==
LOC: ERS 13:33 → 2SE 19:35 → INTOOBSV 19:35 → OBSVTOIN 07-18 13:10 → SURG A 07-18 15:57
PROVIDERS: ADMIT Surgery; ATTEND Surgery
DX: F07.81 Postconcussional syndrome (principal); S06.359D Traumatic hemorrhage of left cerebrum with loss of consciousness of unspecified duration, subsequent encounter; R11.10 Vomiting, unspecified; Z20.822 Contact with and (suspected) exposure to COVID-19; I25.10 Atherosclerotic heart disease of native coronary artery without angina pectoris; J44.9 Chronic obstructive pulmonary disease, unspecified; B18.2 Chronic viral hepatitis C; I10 Essential (primary) hypertension; M54.5 Low back pain; G89.29 Other chronic pain; F12.10 Cannabis abuse, uncomplicated; F17.210 Nicotine dependence, cigarettes, uncomplicated; F10.10 Alcohol abuse, uncomplicated; E78.5 Hyperlipidemia, unspecified; Z96.652 Presence of left artificial knee joint; I72.5 Aneurysm of other precerebral arteries; S02.119D Unspecified fracture of occiput, subsequent encounter for fracture with routine healing; Z86.73 Personal history of transient ischemic attack (TIA), and cerebral infarction without residual deficits; I25.2 Old myocardial infarction; Z90.49 Acquired absence of other specified parts of digestive tract; Z88.2 Allergy status to sulfonamides
CPT/HCPCS: 36415; 36416; 70450; 80048; 80053; 84484; 85025; 85610; 85730; 87635; 93005; 96365; 96366; 96375; J1100; J1200; J2270; J2405; J2550; J2765; J8540; Q0162; U0003; U0005

== ENCOUNTER 2021-08-22 02:12 | Observation (INO) | payer MEDICARE, MEDICAID ==
[2021-08-22] MEDS ORDERED: Ondansetron ODT 4 MG TAB PO PRN (03:33)
[2021-08-22] MEDS ORDERED: Calcium Carbonate 500 MG ChewTAB PO PRN (03:33)
[2021-08-22 03:46] VITALS: BMI 26.9
[2021-08-22] MEDS: Cyclobenzaprine 10 MG TAB PO PRN ×3 (04:37→20:34)
[2021-08-22] MEDS: Nicotine 14 MG PATCH TD SCH (04:38)
[2021-08-22] MEDS: Acetaminophen 500 MG TAB PO PRN ×3 (04:38→20:34)
[2021-08-22 05:20] LABS: Lactic Acid 1.2 mmol/L (0.5-2.2)
[2021-08-22] MEDS: Lactated Ringer's 1,000 ML IV SCH ×3 (05:41→20:30)
[2021-08-22 06:37] LABS: Amphetamine Not Detected (NotDetected); Barbiturates Screen Not Detected (NotDetected); Benzodiazepine Screen Not Detected (NotDetected); Cocaine Metabolite Screen Not Detected (NotDetected); Methadone Not Detected (NotDetected); Methamphetamine Not Detected (NotDetected); Opiate Screen Not Detected (NotDetected); Oxycodone Screen Not Detected (NotDetected); Phencyclidine (PCP) Not Detected (NotDetected); THC/Cannabinoid Screen Detected (NotDetected); Tricyclic Screen Not Detected (NotDetected)
[2021-08-22 06:42] LABS: Creatinine, Urine 174.27 mg/dL (63-166)
[2021-08-22 07:01] LABS: #Monocytes 0.9 thou/uL (0.11-0.59); %Eosinophils 0.5 % (0.0-10.0); %Lymphocytes 19.8 % (21.0-51.0); %Neutrophils 70.7 % (42.0-75.0); Hemoglobin 13.7 g/dL (14.0-18.0); Mean Corpuscular HGB CONC 32.6 g/dL (32.0-36.0); Mean Corpuscular Hemoglobin 33.2 pg (27.0-31.0); Mean Platelet Volume 8.1 fL (7.4-10.4); Platelet Count 153 thou/uL (130-400); RBC Distribution Width 11.9 % (11.5-14.5); Red Blood Cell (RBC) Count 4.14 mill/uL (4.70-6.10); White Blood Cell (WBC) Count 9.8 thou/uL (4.8-10.8)
[2021-08-22 07:23] LABS: ALT (SGPT) 18 U/L (8-55); AST (SGOT) 26 U/L (5-34); Albumin 3.6 g/dL (3.4-4.8); Alkaline Phosphatase 50 U/L (40-110); Anion Gap 16 mmol/L (10-20); BUN (Urea Nitrogen) 14 mg/dL (8.4-25.7); Bilirubin, Total 0.9 mg/dL (0.2-1.2); Calc. Creatinine Clearance 49 mL/min (70-130); Calcium 8.5 mg/dL (7.8-10.44); Carbon Dioxide 22 mmol/L (23-31); Chloride 106 mmol/L (98-107); Globulin 2.9 g/dL (2.4-3.5); Glucose 94 mg/dL (80-115); Potassium 3.8 mmol/L (3.5-5.1); Protein, Total 6.5 g/dL (5.8-8.1); Sodium 140 mmol/L (136-145)
[2021-08-22] MEDS: Thiamine 100 MG TAB PO SCH (08:04)
[2021-08-22] MEDS: Folic Acid 1 MG TAB PO SCH (08:04)
[2021-08-22 13:32] LABS: Anion Gap 14 mmol/L (10-20); BUN (Urea Nitrogen) 13 mg/dL (8.4-25.7); Calc. Creatinine Clearance 70 mL/min (70-130); Calcium 8.2 mg/dL (7.8-10.44); Carbon Dioxide 24 mmol/L (23-31); Chloride 105 mmol/L (98-107); Glucose 94 mg/dL (80-115); Potassium 3.4 mmol/L (3.5-5.1); Sodium 140 mmol/L (136-145)
[2021-08-22] MEDS ORDERED: Pepto Bismol Chew TAB PO PRN (22:46)
[2021-08-23] MEDS: Lactated Ringer's 1,000 ML IV SCH ×2 (04:31→16:57)
[2021-08-23] MEDS: Nicotine 14 MG PATCH TD SCH (04:31)
[2021-08-23] MEDS: Cyclobenzaprine 10 MG TAB PO PRN (04:31)
[2021-08-23] MEDS: Acetaminophen 500 MG TAB PO PRN (04:31)
[2021-08-23 07:15] LABS: #Eosinphils 0.2 thou/uL (0.0-0.7); #Monocytes 0.5 thou/uL (0.11-0.59); #Neutrophils 3.2 thou/uL (1.40-6.50); %Basophils 0.6 % (0.0-1.0); %Eosinophils 2.7 % (0.0-10.0); %Lymphocytes 33.2 % (21.0-51.0); %Monocytes 9.2 % (0.0-10.0); %Neutrophils 54.4 % (42.0-75.0); Hemoglobin 13.5 g/dL (14.0-18.0); Mean Corpuscular HGB CONC 31.9 g/dL (32.0-36.0); Mean Corpuscular Hemoglobin 32.8 pg (27.0-31.0); Mean Platelet Volume 8.4 fL (7.4-10.4); Platelet Count 156 thou/uL (130-400); RBC Distribution Width 11.8 % (11.5-14.5); White Blood Cell (WBC) Count 5.9 thou/uL (4.8-10.8)
[2021-08-23 07:36] LABS: ALT (SGPT) 23 U/L (8-55); AST (SGOT) 33 U/L (5-34); Albumin 3.3 g/dL (3.4-4.8); Alkaline Phosphatase 50 U/L (40-110); Anion Gap 14 mmol/L (10-20); BUN (Urea Nitrogen) 9 mg/dL (8.4-25.7); Bilirubin, Total 0.5 mg/dL (0.2-1.2); Calc. Creatinine Clearance 94 mL/min (70-130); Calcium 8.4 mg/dL (7.8-10.44); Carbon Dioxide 22 mmol/L (23-31); Chloride 108 mmol/L (98-107); Globulin 2.9 g/dL (2.4-3.5); Glucose 82 mg/dL (80-115); Protein, Total 6.2 g/dL (5.8-8.1); Sodium 140 mmol/L (136-145)
[2021-08-23 08:23] VITALS: TEMP 97.5
[2021-08-23] MEDS: Thiamine 100 MG TAB PO SCH (08:42)
[2021-08-23] MEDS: Folic Acid 1 MG TAB PO SCH (08:42)
[2021-08-23 17:57] VITALS: BP 178/86
[2021-08-23 21:49] LABS: Campy jejuni + coli by PCR Negative (Negative); STEC Shiga Toxin 1+2 Negative (Negative); Salmonella spp. by PCR Negative (Negative); Shigella spp + EIEC by PCR Negative (Negative)
== END 2021-08-23 18:00 | disposition home or self-care (01) ==
LOC: T4-B 03:19 → 2SW 08-23 11:54
PROVIDERS: ADMIT Family Medicine; ATTEND Family Medicine
DX: R55 Syncope and collapse (principal); I10 Essential (primary) hypertension; R19.7 Diarrhea, unspecified; E86.0 Dehydration; N17.9 Acute kidney failure, unspecified; I95.9 Hypotension, unspecified; I25.2 Old myocardial infarction; I25.10 Atherosclerotic heart disease of native coronary artery without angina pectoris; F17.210 Nicotine dependence, cigarettes, uncomplicated; G89.29 Other chronic pain; B19.20 Unspecified viral hepatitis C without hepatic coma; I47.1 Supraventricular tachycardia; I08.8 Other rheumatic multiple valve diseases; Z79.899 Other long term (current) drug therapy; Z88.2 Allergy status to sulfonamides; Z95.5 Presence of coronary angioplasty implant and graft; Z20.822 Contact with and (suspected) exposure to COVID-19
CPT/HCPCS: 80048; 80053 ×2; 80306; 82570; 83605; 84300; 85025 ×2; 87324; 87449; 87505; 93306; 96360; 96361 ×2; 97139; G0378 ×2; U0003; U0005; 36415; J7120